=== PATIENT | female | born 1950 | race Caucasian/White ===

== ENCOUNTER → 2017-12-31 12:28 | Outpatient (CLI) | payer MEDICARE, SELFPAY ==
[2017-12-31 12:58] LABS: Creatinine,Urine Random 13 mg/dL (20-320)
[2017-12-31 13:40] LABS: Anion Gap 12.1 mEq/L (5-15); Blood Urea Nitrogen 13 mg/dL (7-18); Carbon Dioxide 31 mmol/L (21.0-32.0); Chloride 101 mmol/L (98-107); Creatinine,Serum 0.83 mg/dL (0.55-1.02); Estimated Glomerular Filt Rate 69 ml/min (>60); Potassium 4.1 mmoL/L (3.5-5.1); Sodium 140 mmol/L (136-145)
[2017-12-31 13:41] LABS: Albumin Level 4.1 gm/dL (3.4-5.0); Calcium 10.1 mg/dL (8.5-10.1); GFR (African American) 83 ML/MIN (>60); Glucose 99 mg/dL (74-106); Phosphorous 3.9 mg/dL (2.4-4.9)
[2018-01-01 18:41] LABS: Vitamin D 25 Hydroxy 26.7 ng/mL (30.0-100.0)
[2018-01-04 08:30] LABS: Osteocalcin 19.4 ng/mL (.); Tandem-R Ostase 23.6 ug/L (.)
[2018-01-05 10:57] LABS: N-Telopeptide Cross-linked 28.5 nmol BCE/L (6.2-19.0)
== END ==
PROVIDERS: Visit Provider Internal Medicine Nephrology
DX: M81.0 Age-related osteoporosis without current pathological fracture (principal)
CPT/HCPCS: 36415; 80069; 82523; 82570; 82652; 83937; 84080

== ENCOUNTER → 2018-01-31 12:41 | Outpatient (POV) | payer MEDICARE, SELFPAY | PROVIDERS: Visit Provider Internal Medicine Nephrology | DX: Z00.00 Encounter for general adult medical examination without abnormal findings (principal) ==

== ENCOUNTER → 2018-02-22 09:38 | Outpatient (CLI) | payer MEDICARE, SELFPAY ==
--- NOTE | 2018-02-22 09:43 | MM_ITS ---
MM Dig screening mamm BI w/CAD ORDERING PHYSICIAN : Danuta Dukes PATIENT AGE: 67 years GENDER: Female COMPARISON: August 2015, May INDICATION: ITS.REASON: SCREENING no hormones. No new complaints. Noncontributory family history TECHNIQUE: Standard CC and MLO images were obtained. R2 CAD reviewed. FINDINGS: Moderate density breast with no dominant, suspicious mass or suspicious calcifications. Similar parenchymal pattern to previous studies . No significant new areas of concern. Minor progression of 8 benign calcifications left breast. Insignificant. . IMPRESSION: . No significant new findings either breast. Stable mammogram. Bilateral follow-up recommended in one year BI-RADS Category: 2 Benign Finding(s) RECOMMENDED FOLLOW-UP: 1YR 1 YEAR FOLLOW-UP (A letter has been sent to the patient regarding results of the study.)
== END ==
PROVIDERS: PCP Internal Medicine Adolescent Medicine; Visit Provider Nurse Practitioner Family
DX: Z12.31 Encounter for screening mammogram for malignant neoplasm of breast (principal)
CPT/HCPCS: 77067

== ENCOUNTER → 2018-06-17 08:21 | Outpatient (CLI) | payer MEDICARE, SELFPAY ==
--- NOTE | 2018-06-17 08:30 | XR_ITS ---
XR DEXA axial skeleton HISTORY: ITS.REASON: OSTEOPOROSIS ORDERING PHYSICIAN: Romulo Sullivan PATIENT AGE: 67 years COMPARISON: [id number] FINDINGS: The BMD measured at the AP Spine L1-L4 is 1.002 g/cm squared with a T score of -1.8. This is considered Osteopenic according to the World Health Organization criteria. Fracture risk is Moderate. Treatment is advised. The mean hip density has a T score of -1.0. The lumbar spine density has increased by a percent and the hip density has decreased by 6% compared to 08/19/2016 IMPRESSION: Osteopenia with moderate fracture risk. Treatment is advised. Suggest follow up exam June 2020
[2018-06-17 09:49] LABS: Microscopic, Urine URINE MICROSCOPIC (MICROSCOPIC)
[2018-06-17 10:12] LABS: Basophils # 0.1 K/mm3 (0-0.2); Basophils % 0.5 % (0.1-2.0); Eosinophils # 0.2 K/mm3 (0.0-0.4); Eosinophils % 2.4 % (0.1-12.0); Hemoglobin 14.3 g/dL (12.2-16.2); Lymphocytes # 2.2 K/mm3 (0.7-4.5); Lymphocytes % 22.9 % (10-50); Mean Corpuscular HGB Conc 31.8 g/dL (31.8-35.4); Mean Corpuscular Hemoglobin 30.5 pg (27.0-31.2); Mean Corpuscular Volume 95.9 fl (81-99); Mean Platelet Volume 7.1 fl (7.4-10.4); Monocytes # 0.5 K/mm3 (0.1-1.0); Monocytes % 4.8 % (1.7-9.3); Neutrophils # 6.8 K/mm3 (1.8-7.8); Neutrophils % 69.4 % (37.0-80.0); Platelet Count 287 K/mm3 (142-424); Red Blood Count 4.69 M/mm3 (4.20-5.40); Red Cell Distribution Width 13.1 % (11.5-17.5); White Blood Count 9.8 K/mm3 (4.8-10.8)
[2018-06-17 10:13] LABS: Appearance,Urine CLOUDY (Clear); Blood, Urine TRACE-I (Negative); Color,Urine YELLOW (Yellow); Glucose,Urine (UA) Negative (Negative); Ketones,Urine TRACE (Negative); Leukocyte Esterase,Urine 1+ (Negative); Nitrate,Urine Negative (Negative); Protein,Urine Negative (Negative); Specific Gravity, Urine >= 1.030 (1.005-1.030); Urobilinogen,Urine 0.2 EU/dl (0.2)
[2018-06-17 10:16] LABS: Bilirubin,Urine Negative (Negative)
[2018-06-17 10:19] LABS: Creatinine,Urine Random 324 mg/dL (20-320); Total Protein,Urine Random 41.7 mg/dL (0.0-11.9)
[2018-06-17 10:22] LABS: Bacteria,Urine 1+ /lpf; Mucus,Urine Trace /lpf; RBC,Urine Occasional #/hpf (0-3); WBC,Urine 20-50 #/hpf (0-3)
[2018-06-17 10:38] LABS: Albumin Level 3.7 gm/dL (3.4-5.0); Anion Gap 12.2 mEq/L (5-15); Blood Urea Nitrogen 11 mg/dL (7-18); Calcium 9.4 mg/dL (8.5-10.1); Carbon Dioxide 30 mmol/L (21.0-32.0); Chloride 101 mmol/L (98-107); Creatinine,Serum 0.93 mg/dL (0.55-1.02); Estimated Glomerular Filt Rate 60 ml/min (>60); GFR (African American) 73 ML/MIN (>60); Glucose 137 mg/dL (74-106); Phosphorous 4.5 mg/dL (2.4-4.9); Potassium 4.2 mmoL/L (3.5-5.1); Sodium 139 mmol/L (136-145)
[2018-06-17 14:54] LABS: Alanine Aminotransferase 22 U/L (12-78); Albumin Level 3.8 gm/dL (3.4-5.0); Albumin/Globulin Ratio 1.2 (1.1-1.8); Alkaline Phosphatase 125 U/L (46-116); Anion Gap 18.3 mEq/L (5-15); Bilirubin,Total 0.2 mg/dL (0.2-1.0); Blood Urea Nitrogen 12 mg/dL (7-18); Calcium 9.2 mg/dL (8.5-10.1); Carbon Dioxide 27 mmol/L (21.0-32.0); Chloride 100 mmol/L (98-107); Chol/HDL Ratio 2.8 (1-3.5); Cholesterol 184 mg/dL (140-200); Creatinine,Serum 0.95 mg/dL (0.55-1.02); Estimated Glomerular Filt Rate 59 ml/min (>60); GFR (African American) 71 ML/MIN (>60); Globulin 3.1 gm/dl (1.3-3.2); Glucose 133 mg/dL (74-106); HDL Cholesterol 66 mg/dL (29-89); LDL Cholesterol 101 mg/dL (0-130); Sodium 141 mmol/L (136-145); Total Protein,Serum 6.9 gm/dL (6.4-8.2); Triglycerides 86 mg/dL (30-200); VLDL Cholesterol 17 mg/dL (0-40)
[2018-06-17 14:55] LABS: Aspartate Amino Transferase 16 U/L (15-37); Potassium 4.3 mmoL/L (3.5-5.1)
[2018-06-18 19:32] LABS: Parathyroid Hormone Intact 29 pg/mL (15-65)
[2018-06-21 08:08] LABS: Osteocalcin 27.1 ng/mL (.)
[2018-06-21 08:09] LABS: Tandem-R Ostase 24.8 ug/L (.)
[2018-06-21 16:13] LABS: N-Telopeptide Cross-linked 27.3 nmol BCE/L (6.2-19.0)
== END ==
PROVIDERS: PCP Nurse Practitioner Family; Visit Provider Internal Medicine Nephrology
DX: M81.0 Age-related osteoporosis without current pathological fracture (principal); E78.5 Hyperlipidemia, unspecified; I10 Essential (primary) hypertension; R82.90 Unspecified abnormal findings in urine
CPT/HCPCS: 36415; 77080; 80053; 80061; 80069; 81001; 82523; 82570; 82652; 83937; 83970; 84080; 84155; 85025; 87086

== ENCOUNTER → 2018-06-22 11:26 | Outpatient (CLI) | payer MEDICARE, SELFPAY ==
[2018-06-22 17:04] LABS: Hemoglobin A1C 5.6 % (0.0-7.0)
== END ==
PROVIDERS: Visit Provider Nurse Practitioner Family
DX: R73.09 Other abnormal glucose (principal)
CPT/HCPCS: 36415; 83036

== ENCOUNTER → 2018-07-18 12:19 | Outpatient (POV) | payer MEDICARE, SELFPAY | PROVIDERS: Visit Provider Internal Medicine Nephrology | DX: Z00.00 Encounter for general adult medical examination without abnormal findings (principal) ==

== ENCOUNTER → 2019-02-13 14:25 | Outpatient (CLI) | payer MEDICARE, SELFPAY ==
--- NOTE | 2019-02-13 14:29 | XR_ITS ---
PROCEDURE: XR HIP RT 2-3V W/PELVIS CLINICAL INDICATION: RT HIP PAIN COMPARISON: BONE3 BONE DENSITOMETRY(HIP:LT SPINE from 08/12/2015 BONE3 BONE DENSITOMETRY(HIP:LT SPINE from 08/19/2016 FINDINGS: No fracture or dislocation is evident. No significant degenerative change. No lytic or blastic change. Unremarkable soft tissues. IMPRESSION: No acute findings. Dictated by: Alessandro Fleming 02/13/2019 14:53 Electronically signed by Alessandro Fleming in [facility] 02/13/2019 14:53
== END ==
PROVIDERS: PCP Nurse Practitioner Family; Visit Provider Nurse Practitioner Family
DX: M25.551 Pain in right hip (principal)
CPT/HCPCS: 73502

== ENCOUNTER → 2019-07-03 09:10 | Outpatient (CLI) | payer MEDICARE, SELFPAY ==
--- NOTE | 2019-07-03 09:14 | XR_ITS ---
PROCEDURE: XR DEXA AXIAL SKELETON CLINICAL HISTORY: OSTEOPAROSIS COMPARISON: No exams were available for comparison FINDINGS: Using the right femoral neck bone mineral density is measured to be 0.71 grams/squared centimeter. T-score -1.2 place the patient in the osteopenic category. Using L1 through L4 vertebrae total bone mineral density is 0.81 grams/squared centimeter. T-score of -2.[address] the patient in the osteopenic category. IMPRESSION: Osteopenia. Dictated by: Adam Reagan 07/03/2019 13:36 Electronically signed by Adam Reagan in [facility] 07/03/2019 13:36
[2019-07-03 12:04] LABS: Albumin Level 3.8 g/dL (3.4-5.0); Anion Gap 11.4 mEq/L (5-15); Blood Urea Nitrogen 10 mg/dL (7-18); Calcium 9.2 mg/dL (8.5-10.1); Carbon Dioxide 32 mmol/L (21.0-32.0); Chloride 104 mmol/L (98-107); Creatinine,Serum 0.89 mg/dL (0.55-1.02); Estimated Glomerular Filt Rate 63 ml/min (>60); GFR (African American) 76 ML/MIN (>60); Glucose 90 mg/dL (74-106); Potassium 4.4 mmoL/L (3.5-5.1); Sodium 143 mmol/L (137-145)
[2019-07-07 10:33] LABS: N-Telopeptide Cross-linked 20.7 nmol BCE/L (6.2-19.0); Tandem-R Ostase 14.3 ug/L (.)
== END ==
PROVIDERS: PCP Nurse Practitioner Family; Visit Provider Internal Medicine Nephrology
DX: M81.0 Age-related osteoporosis without current pathological fracture (principal)
CPT/HCPCS: 36415; 77080; 80069; 82523; 82652; 83937; 84080

== ENCOUNTER → 2019-12-25 11:00 | Outpatient (CLI) | payer MEDICARE, SELFPAY ==
[2019-12-25 11:07] LABS: Microscopic, Urine URINE MICROSCOPIC (MICROSCOPIC)
[2019-12-25 11:30] LABS: Basophils # 0.1 K/mm3 (0-0.2); Basophils % 0.7 % (0.1-2.0); Eosinophils # 0.2 K/mm3 (0.0-0.4); Eosinophils % 2.1 % (0.1-12.0); Hematocrit 40.3 % (37.0-47.0); Hemoglobin 13.8 g/dL (12.2-16.2); Lymphocytes # 1.7 K/mm3 (0.7-4.5); Mean Corpuscular HGB Conc 34.2 g/dL (31.8-35.4); Mean Corpuscular Hemoglobin 32.2 pg (27.0-31.2); Mean Corpuscular Volume 94.2 fl (81-99); Mean Platelet Volume 6.9 fl (7.4-10.4); Monocytes # 0.5 K/mm3 (0.1-1.0); Monocytes % 5.8 % (1.7-9.3); Neutrophils # 6.6 K/mm3 (1.8-7.8); Neutrophils % 72.4 % (37.0-80.0); Platelet Count 273 K/mm3 (142-424); Red Blood Count 4.27 M/mm3 (4.20-5.40); Red Cell Distribution Width 12.7 % (11.5-17.5); White Blood Count 9.1 K/mm3 (4.8-10.8)
[2019-12-25 11:33] LABS: Appearance,Urine CLOUDY (Clear); Bilirubin,Urine Negative (Negative); Blood, Urine TRACE-I (Negative); Color,Urine YELLOW (Yellow); Glucose,Urine (UA) Negative (Negative); Ketones,Urine Negative (Negative); Leukocyte Esterase,Urine 2+ (Negative); Nitrate,Urine Negative (Negative); Protein,Urine TRACE (Negative); Specific Gravity, Urine 1.015 (1.005-1.030); Urobilinogen,Urine 0.2 EU/dl (0.2)
[2019-12-25 11:53] LABS: Alanine Aminotransferase 12 U/L (12-78); Albumin Level 4.4 g/dl (3.5-5.0); Albumin/Globulin Ratio 1.6 (1.1-1.8); Alkaline Phosphatase 111 U/L (38-126); Anion Gap 14.4 mEq/L (5-15); Aspartate Amino Transferase 22 U/L (14-36); Bilirubin,Total 0.4 mg/dl (0.2-1.3); Blood Urea Nitrogen 15 mg/dl (7-17); Calcium 10.3 mg/dl (8.4-10.2); Carbon Dioxide 33 mmol/L (22.0-30.0); Chloride 95 mmol/L (98-107); Chol/HDL Ratio 2.7 (1-3.5); Cholesterol 205 mg/dl (140-200); Estimated Glomerular Filt Rate 71 ml/min (>60); GFR (African American) 86 ML/MIN (>60); Globulin 2.7 g/dL (1.3-3.2); Glucose 104 mg/dl (74-100); HDL Cholesterol 76 mg/dl (40-60); Potassium 4.4 mmoL/L (3.5-5.1); Sodium 138 mmol/L (136-145); Total Protein,Serum 7.1 g/dl (6.3-8.2); Triglycerides 131 mg/dl (30-150); VLDL Cholesterol 26 mg/dL (0-40)
[2019-12-25 11:57] LABS: Bacteria,Urine 2+ /lpf; WBC,Urine 20-50 #/hpf (0-3)
[2019-12-25 11:58] LABS: Amorphous Sediment,Urine 2+ /lpf
[2019-12-25 12:03] LABS: Hemoglobin A1C 5.3 % (4.0-6.0)
[2019-12-25 12:04] LABS: Direct LDL Cholesterol 94.41 mg/dL (100-129)
[2019-12-25 12:09] LABS: 25-OH Vitamin D, Total 39.8 ng/mL (30-100)
[2019-12-25 12:10] LABS: Free Thyroxine Index 2.2 ug/dL (5.93-13.13); T4 (Thyroxine) 7.4 ug/dl (5.53-11.0); Triiodothryronine (T3) Uptake 30 % (23.5-40.5)
[2019-12-26 09:37] LABS: Vitamin B12 208 pg/mL (232-1245)
[2019-12-27 21:28] LABS: Methylmalonic Acid 892 nmol/L (0-378)
== END ==
PROVIDERS: Visit Provider Internal Medicine Adolescent Medicine
DX: R25.1 Tremor, unspecified (principal); G60.9 Hereditary and idiopathic neuropathy, unspecified; R30.0 Dysuria; M81.0 Age-related osteoporosis without current pathological fracture; Z00.00 Encounter for general adult medical examination without abnormal findings; E78.00 Pure hypercholesterolemia, unspecified; R73.09 Other abnormal glucose
CPT/HCPCS: 36415; 80053; 80061; 81001; 82131; 82306; 82607; 83036; 84436; 84443; 84479; 85025; 87086

== ENCOUNTER 2020-01-05 13:20 | Outpatient (CLI) | payer MEDICARE, SELFPAY ==
[2020-01-05 13:20] VITALS: BP 138/76; PULSE 68; RESP 20; TEMP 36.9; O2SAT 95
== END 2020-01-05 14:00 | disposition home or self-care (01) ==
LOC: INF 13:24
PROVIDERS: Visit Provider Internal Medicine Nephrology
DX: M85.89 Other specified disorders of bone density and structure, multiple sites (principal)
CPT/HCPCS: 96372; J0897

== ENCOUNTER → 2020-02-15 07:59 | Outpatient (CLI) | payer MEDICARE, SELFPAY ==
--- NOTE | 2020-02-15 08:00 | MR_ITS ---
PROCEDURE: MR HEAD/BRAIN WO CON CLINICAL INDICATION: NONINTRACTABLE EPISODIC HEADACHE Pt states hx of tremors x years and intermittent headaches. COMPARISON: CR CS5 CERVICAL SPINE 4 OR 5 VIEWS from 08/29/2014 TECHNIQUE: Routine multiplanar multi echo sequences are performed without gadolinium enhancement. FINDINGS: No midline shift, mass effect, intracranial hemorrhage, or hydrocephalus. No evidence of acute infarction. There are non specific T2 white matter hyperintensities in the periventricular and subcortical regions. These do not demonstrate restricted diffusion. The pituitary, optic chiasm, and craniocervical junction have an unremarkable appearance. There is mild prominence of the corpus callosum splenium region. The signal intensity however is unremarkable. Corpus callosum just anterior to this region is somewhat thinned. Artifact is present from the mastoid region on both sides. No paranasal sinus air-fluid levels evident. With the cerebellopontine angle, cerebellum, and brainstem are unremarkable. There is diffuse decreased signal intensity at the petrous area on both sides which could be due to either diffuse osteosclerosis or pneumatization. Head CT may provide further evaluation. IMPRESSION: 1. No acute intracranial findings. 2. Nonspecific T2 white matter hyperintensities 3. Diffuse decreased signal intensity in the mastoids and the petrous area. This may only be due to prominent pneumatization or possibly diffuse osteosclerosis. Head CT without contrast may provide further evaluation. 4. Nonspecific prominence of the splenium of the corpus callosum without signal alteration Dictated by: Gerardo Espinoza MD 02/19/2020 05:27 Gerardo Espinoza MD in [place] 02/19/2020 05:27
--- NOTE | 2020-02-15 08:00 | MR_ITS ---
PROCEDURE: MR LUMBAR SPINE WO CON CLINICAL INDICATION: IDIOPATHIC PERIPHERAL NEUROPATHY Pt. states she has no reflexes in left leg and she is unable to spread her toes in left leg. Pt denies injury or trauma. COMPARISON: CR KUB KUB (SINGLE VIEW) from 09/22/2013 TECHNIQUE: Standard multiplanar multiecho sequences are performed without contrast. 3-D MIP and myelographic images are also rendered and reviewed FINDINGS: The spinal cord ends at the L2 level. T12-L1: Unremarkable. L1-L2: There is chronic moderate to severe wedge compression fracture of L2 with loss of height centrally of greater than 50 percent and anteriorly of approximately 50 percent. There is mild retropulsion of the posterior inferior aspect of L2 by approximately 4 mm. Kyphosis is present at L1-L2 with minimal bulging of the disc slightly eccentric toward the right with mild right lateral recess narrowing. Mild bilateral foraminal narrowing noted. L2-L3: Bulging disc. Mild retropulsion of L2 of on L3 of 4 mm. Small annular fissure is noted centrally. There is mild facet and ligamentum hypertrophy with mild bilateral lateral recess narrowing and foraminal narrowing. L3-L4: Minimal bulging disc slightly eccentric toward the left with mild bilateral foraminal narrowing greater on the left. L4-5: Unremarkable. L5-S1: There is a small broad-based central left paracentral and foraminal disc protrusion versus asymmetric bulging disc with associated facet and ligamentum hypertrophy causing mild left lateral recess narrowing and moderate to severe left-sided foraminal narrowing. IMPRESSION: Multilevel lumbar spondylosis resulting in lateral recess and foraminal narrowing. Please see above for detailed description at each level No extruded herniated disc. No bony canal stenosis. Chronic wedge compression fracture of L2 with kyphosis. See above for details Dictated by: Gerardo Espinoza MD 02/19/2020 05:35 Gerardo Espinoza MD in [place] 02/19/2020 05:35
== END ==
PROVIDERS: PCP Nurse Practitioner Family; Visit Provider Nurse Practitioner Family
DX: R51.9 Headache, unspecified (principal); G60.9 Hereditary and idiopathic neuropathy, unspecified
CPT/HCPCS: 70551; 72148; 76376

== ENCOUNTER → 2020-03-13 09:28 | Outpatient (CLI) | payer MEDICARE, SELFPAY ==
--- NOTE | 2020-03-13 09:31 | MM_ITS ---
PROCEDURE: MM DIG SCREENING MAMM BI W/CAD Digital Breast Tomosynthesis Included CLINICAL INDICATION: SCREENING There is no personal or family history of breast cancer. COMPARISON: MG DMSB DIG MAMM-SCREEN CLAUDETTE from 05/19/2013 MG DMSB DIG MAMM-SCREEN CLAUDETTE from 09/04/2015 MG SCBI MM Dig screening mamm BI w/CAD from 02/22/2018 TECHNIQUE: Standard CC and MLO images and 3D Tomosynthesis was obtained. R2 CAD reviewed. FINDINGS: Diffuse somewhat heterogenic fibroglandular densities are seen in both breast. There are few scattered benign-appearing calcifications in each breast. There is no suspicious lesion in either breast and no suspicious microcalcifications. There are normal appearing nodes in both axilla. IMPRESSION: Moderate heterogenic breast density with no suspicious lesions seen BI-RAD Category: 2 Benign Finding(s) FOLLOW-UP: 1YR 1 Year Follow-up (A letter has been sent to the patient regarding results of the study.) Dictated by: Dr. Wilbert Saavedra MD 03/14/2020 20:05 Dr. Wilbert Saavedra MD in [place] 03/14/2020 20:05
== END ==
PROVIDERS: PCP Nurse Practitioner Family; Visit Provider Nurse Practitioner Family
DX: Z12.31 Encounter for screening mammogram for malignant neoplasm of breast (principal)
CPT/HCPCS: 77063; 77067

== ENCOUNTER → 2020-04-03 14:35 | Outpatient (CLI) | payer MEDICARE, SELFPAY ==
[2020-04-03 16:48] LABS: Coronavirus 19 IgG Antibody Negative (Negative); Coronavirus 19 IgM Antibody Negative (Negative)
== END ==
PROVIDERS: Visit Provider Internal Medicine Gastroenterology
DX: Z01.818 Encounter for other preprocedural examination (principal); Z12.11 Encounter for screening for malignant neoplasm of colon
CPT/HCPCS: 36415; 86328

== ENCOUNTER 2020-04-05 06:47 | Day surgery (SDC) | payer MEDICARE, SELFPAY ==
[2020-03-27 14:24] VITALS: BMI 31.5
[2020-04-05] VITALS (8 sets, daily range): BP systolic 113–154; BP diastolic 58–100; PULSE 80–119; RESP 18; TEMP 36.4–36.6; O2SAT 94–98
--- NOTE | 2020-04-05 08:05 | HMH.PROC ---
[facility] Procedure Note Procedure Note:: Colonoscopy Procedure Report: Colonoscopy with cold snare polypectomy Endoscopist: Betito Kim II, MD Referring physician: PRATIBHA Porter Date of Procedure: April 05, 2020 Equipment: Olympus 180 variable stiffness pediatric colonoscope Sedation: MAC sedation Indication: Mrs. Sanchez is a 69-year-old female who is here for follow-up screening/surveillance colonoscopy. Her father had colon cancer twice and was initially diagnosed with this at the age of 70. The patient has undergone surveillance every 5 years and her last colonoscopy 5 years ago was normal. She reports no abdominal pain, weight loss, change in her bowel habits or rectal bleeding. Her recent lab work showed normal hemoglobin 13.8 and hematocrit 40.3. She does have B12 deficiency (vitamin B12 level 208 pg/mL). Procedure: Prior to the procedure, a history and physical exam was performed, and patient's medications and allergies were reviewed. The risks, benefits and alternatives of the sedation and procedure were discussed with the patient. All questions were answered and informed consent was obtained. The patient was brought to the procedure room. Patient identification and proposed procedure were verified by the physician and the nurse. The patient was placed in a left lateral decubitus position and the scope was passed under direct vision. Throughout the procedure, the patient's blood pressure, pulse, and oxygen saturations were monitored continuously. The colonoscopy was accomplished without difficulty. The patient tolerated the procedure well. Findings: On digital rectal examination there was normal rectal tone. There were no external hemorrhoids. The colonoscope was introduced through the anal canal to the rectum and advanced to the cecum. The ileocecal valve and appendiceal orifice were identified. The scope was advanced a short distance into the ileum which appeared grossly normal. The scope was then withdrawn into the colon. There were 3 colon polyps (cecum x2 (4 and 5 mm) and transverse x1 (4 mm)) which were all removed via cold snare polypectomy. There were extensive scattered diverticuli throughout the descending and sigmoid colon (LEFT colon). The rectum itself was normal. Upon retroflexion within the rectum there were grade 1 internal hemorrhoids. The preparation was excellent throughout with [place] Preparation Score of 9. The cecal time was 12 minutes. Impression: 1. Colonic polyps x3 2. Left-sided diverticulosis 3. Grade 1 internal hemorrhoids Plan: I will follow up the polyp pathology and recommend repeat colonoscopy again in 5 years based upon the patient's family history and the present polyp histology. I would encourage fiber supplementation on a long-term daily maintenance basis.
--- NOTE | 2020-04-05 08:14 | HMH.ANESCL ---
[facility] Anesthesia Checklist - Structural Data Admitted From: Home Planned Operative Procedure/s: colonoscopy Consent for Planned Operative Procedure(s) Verified: Yes - Airway Assessment C-Spine Mobility Assessed: Yes TMJ Mobility Assessed: Yes Dentition: Good Dentition - Neurological Assessment Level of Consciousness: Awake, Alert, Appropriate - Anesthesia Plan Anesthesia Risk discussed: Yes Anesthesia Plan: Verified ASA Class: II Anesthesia Type: MAC [facility] History I have reviewed the patient's past medical history: Yes Medical History: Denies:: Cancer, Diabetes Mellitus Type 1, Diabetes Mellitus Type 2, Internal Pacemaker, MRSA, Seizures *Have you ever received a pneumonia vaccine?: Yes *Have you received a flu vaccine this season?: Yes Anesthesia experience/problems:: none Other Surgeries: No: Pacemaker Amputation: No Fractures: Yes - *Social History Last grade of school completed: Advanced degree Smoking Status: Never smoker Alcohol Intake: never Substance Use Type: denies use *Occupational Status:: retired Housing: house Household Members: none *Travel in the last 8 weeks: None Family Hx:: Cancer, Hypertension
== END 2020-04-05 08:55 | disposition home or self-care (01) ==
LOC: OUTP 06:49
PROVIDERS: PCP Internal Medicine Adolescent Medicine; Visit Provider Internal Medicine Gastroenterology
PROC: 0DJD8ZZ Inspection of Lower Intestinal Tract, Via Natural or Artificial Opening Endoscopic (ICD-10-PCS; CPT 45378; principal; 2020-04-05 08:00)
DX: Z12.11 Encounter for screening for malignant neoplasm of colon (principal); K64.0 First degree hemorrhoids; K63.5 Polyp of colon; K57.30 Diverticulosis of large intestine without perforation or abscess without bleeding; Z86.010 Personal history of colon polyps; E53.8 Deficiency of other specified B group vitamins; I10 Essential (primary) hypertension; F32.9 Major depressive disorder, single episode, unspecified; Z87.39 Personal history of other diseases of the musculoskeletal system and connective tissue; Z79.82 Long term (current) use of aspirin; Z79.899 Other long term (current) drug therapy
CPT/HCPCS: 45385; 88305

== ENCOUNTER 2020-07-09 13:31 | Outpatient (CLI) | payer MEDICARE, SELFPAY ==
[2020-07-09 13:47] VITALS: BP 111/68; PULSE 97; RESP 18; TEMP 36; O2SAT 98
== END 2020-07-09 13:47 | disposition home or self-care (01) ==
LOC: INF 13:32
PROVIDERS: Visit Provider Psychiatry & Neurology Neurology
DX: M81.0 Age-related osteoporosis without current pathological fracture (principal)
CPT/HCPCS: 96372; J0897

== ENCOUNTER → 2020-08-21 12:14 | Outpatient (CLI) | payer MEDICARE, SELFPAY ==
[2020-08-21 13:12] LABS: Albumin Level 4.4 g/dl (3.5-5.0); Anion Gap 14.6 mEq/L (5-15); Blood Urea Nitrogen 13 mg/dl (7-17); Calcium 9.6 mg/dl (8.4-10.2); Carbon Dioxide 28 mmol/L (22.0-30.0); Chloride 100 mmol/L (98-107); Estimated Glomerular Filt Rate 71 ml/min (>60); GFR (African American) 86 ML/MIN (>60); Glucose 60 mg/dl (74-100); Potassium 4.6 mmoL/L (3.5-5.1); Sodium 138 mmol/L (136-145)
[2020-08-24 09:15] LABS: C-Telopeptide Serum 74 pg/mL (.)
[2020-08-24 13:55] LABS: Tandem-R Ostase 10.2 ug/L (.)
== END ==
PROVIDERS: Visit Provider Internal Medicine Nephrology
DX: M81.0 Age-related osteoporosis without current pathological fracture (principal)
CPT/HCPCS: 36415; 80069; 82306; 82523; 84080

== ENCOUNTER → 2021-03-26 09:12 | Outpatient (CLI) | payer MEDICARE, SELFPAY ==
--- NOTE | 2021-03-26 09:17 | XR_ITS ---
PROCEDURE: XR DEXA AXIAL SKELETON CLINICAL HISTORY: OSTEOPOROSIS COMPARISON: CR DEXAAX XR DEXA axial skeleton from 06/17/2018 FINDINGS: The right hip BMD is 0.72 with a T-score of -1.1. The left hip BMD is 0.638 with a T-score of -1.9. The lumbar spine BMD is 0.826 with a T-score of -2.0. Previously the lowest density was in the lumbar spine with T-score -1.8 IMPRESSION: This patient is considered osteopenic according to the World Health Organization criteria. Bone density is between 10 and 25 percent below young normal. Fracture risk is moderate. Treatment is advised. Based on these results a follow-up exam is recommended in 2 year. Dictated by: Gerardo Espinoza MD 03/26/2021 15:33 Gerardo Espinoza MD in [place] 03/26/2021 15:33
== END ==
PROVIDERS: PCP Nurse Practitioner Family; Visit Provider Internal Medicine Nephrology
DX: M81.0 Age-related osteoporosis without current pathological fracture (principal)
CPT/HCPCS: 77080

== ENCOUNTER → 2021-04-16 12:00 | Outpatient (CLI) | payer MEDICARE, SELFPAY ==
[2021-04-16 12:43] LABS: Albumin Level 4.4 g/dl (3.5-5.0); Chloride 95 mmol/L (98-107); Potassium 4.5 mmoL/L (3.5-5.1); Sodium 135 mmol/L (136-145)
[2021-04-16 12:46] LABS: Anion Gap 13.5 mEq/L (5-15); Blood Urea Nitrogen 16 mg/dl (7-17); Carbon Dioxide 31 mmol/L (22.0-30.0); Estimated Glomerular Filt Rate 62 ml/min (>60); GFR (African American) 75 ML/MIN (>60); Phosphorous 4.8 mg/dl (2.5-4.5)
[2021-04-16 12:47] LABS: Calcium 9.9 mg/dl (8.4-10.2); Glucose 100 mg/dl (74-100)
[2021-04-16 13:43] LABS: 25-OH Vitamin D, Total 56.7 ng/mL (30-100)
[2021-04-20 06:41] LABS: Tandem-R Ostase 19.1 ug/L (.)
[2021-04-20 15:31] LABS: C-Telopeptide Serum 473 pg/mL (.)
== END ==
PROVIDERS: Visit Provider Internal Medicine Nephrology
DX: M81.0 Age-related osteoporosis without current pathological fracture (principal)
CPT/HCPCS: 36415; 80069; 82306; 82523; 84080

== ENCOUNTER → 2021-04-21 13:01 | Outpatient (POV) | payer MEDICARE, SELFPAY | PROVIDERS: Visit Provider Internal Medicine Nephrology | DX: Z00.00 Encounter for general adult medical examination without abnormal findings (principal) ==

== ENCOUNTER 2021-05-26 11:30 | Outpatient (CLI) | payer MEDICARE, SELFPAY ==
[2021-05-26 11:50] VITALS: BP 127/73; PULSE 90; RESP 18; TEMP 36.4; O2SAT 99
== END 2021-05-26 11:50 | disposition home or self-care (01) ==
LOC: INF 11:31
PROVIDERS: PCP Internal Medicine Adolescent Medicine; Visit Provider Internal Medicine Nephrology
DX: M81.0 Age-related osteoporosis without current pathological fracture (principal)
CPT/HCPCS: 96372; J0897

== ENCOUNTER → 2022-04-06 11:32 | Outpatient (POV) | payer MEDICARE, SELFPAY | PROVIDERS: Visit Provider Internal Medicine Nephrology | DX: Z00.00 Encounter for general adult medical examination without abnormal findings (principal) ==

== ENCOUNTER → 2022-04-06 12:39 | Outpatient (CLI) | payer MEDICARE, SELFPAY ==
[2022-04-06 13:55] LABS: Albumin Level 4.5 g/dl (3.5-5.0); Anion Gap 15.9 mEq/L (5-15); Blood Urea Nitrogen 14 mg/dl (7-17); Calcium 10.3 mg/dl (8.4-10.2); Carbon Dioxide 31 mmol/L (22.0-30.0); Chloride 95 mmol/L (98-107); Estimated Glomerular Filt Rate 55 ml/min (>60); GFR (African American) 66 ML/MIN (>60); Glucose 102 mg/dl (74-100); Phosphorous 4.2 mg/dl (2.5-4.5); Potassium 4.9 mmoL/L (3.5-5.1); Sodium 137 mmol/L (136-145)
[2022-04-06 14:10] LABS: 25-OH Vitamin D, Total 59.6 ng/mL (30-100)
[2022-04-10 10:03] LABS: Tandem-R Ostase 20.5 ug/L (.)
[2022-04-12 15:08] LABS: C-Telopeptide Serum 400 pg/mL (.)
== END ==
PROVIDERS: PCP Internal Medicine Adolescent Medicine; Visit Provider Internal Medicine Nephrology
DX: M81.0 Age-related osteoporosis without current pathological fracture (principal); I10 Essential (primary) hypertension; N18.2 Chronic kidney disease, stage 2 (mild)
CPT/HCPCS: 36415; 80069; 82306; 82523; 84080

== ENCOUNTER → 2022-05-28 10:15 | Outpatient (CLI) | payer MEDICARE, SELFPAY ==
--- NOTE | 2022-05-28 10:28 | MM_ITS ---
PROCEDURE INFORMATION: Exam: MG Bilateral Screening 3D Mammography Exam date and time: 05/28/2022 10:19 AM Age: 71 years old Clinical indication: Screening examination TECHNIQUE: Imaging protocol: Bilateral Screening tomosynthesis and 2D mammography including computer-aided detection (CAD) when performed. COMPARISON: 1. MG MM DIG SCREENING MAMM BI W/CAD 03/13/2020 9:36 AM 2. MG SCBI MM Dig screening mamm BI w/CAD 02/22/2018 10:01 AM FINDINGS: MAMMOGRAPHY: Breast composition: There are scattered areas of fibroglandular density. Mass: Questionable 0.4 cm mass in the middle third of the left upper outer quadrant better seen in the MLO projection Architectural distortion: None. Calcifications: No suspicious calcifications. Asymmetric density: None. Skin thickening: None. Axillary adenopathy: None. IMPRESSION: Patient to be recalled for spot compression views of the left breast in the CC and MLO projections, a full 90 degree lateral view, and left breast ultrasound for further evaluation of a left breast mass. ASSESSMENT: BI-RADS Category 0: Incomplete- Need Additional Imaging Evaluation and/or Prior Mammograms for Comparison
[2022-05-28 11:42] LABS: Basophils # 0.1 K/mm3 (0-0.2); Basophils % 1.2 % (0.1-2.0); Eosinophils # 0.3 K/mm3 (0.0-0.4); Eosinophils % 2.9 % (0.1-12.0); Hematocrit 41.5 % (37.0-47.0); Hemoglobin 12.6 g/dL (12.2-16.2); Lymphocytes # 2.2 K/mm3 (0.7-4.5); Lymphocytes % 20.5 % (10-50); Mean Corpuscular HGB Conc 30.4 g/dL (31.8-35.4); Mean Corpuscular Volume 92.1 fl (81-99); Mean Platelet Volume 7.3 fl (7.4-10.4); Monocytes # 0.6 K/mm3 (0.1-1.0); Neutrophils # 7.3 K/mm3 (1.8-7.8); Neutrophils % 69.3 % (37.0-80.0); Platelet Count 342 K/mm3 (142-424); Red Blood Count 4.51 M/mm3 (4.20-5.40); Red Cell Distribution Width 14.1 % (11.5-17.5); White Blood Count 10.6 K/mm3 (4.8-10.8)
[2022-05-28 12:23] LABS: Alanine Aminotransferase 16 U/L (12-78); Albumin Level 4.3 g/dl (3.5-5.0); Albumin/Globulin Ratio 1.7 (1.1-1.8); Alkaline Phosphatase 114 U/L (38-126); Anion Gap 12.4 mEq/L (5-15); Aspartate Amino Transferase 22 U/L (14-36); Bilirubin,Total 0.5 mg/dl (0.2-1.3); Blood Urea Nitrogen 17 mg/dl (7-17); Calcium 9.4 mg/dl (8.4-10.2); Carbon Dioxide 31 mmol/L (22.0-30.0); Chloride 99 mmol/L (98-107); Chol/HDL Ratio 2.7 (1-3.5); Cholesterol 178 mg/dl (140-200); Estimated Glomerular Filt Rate 62 ml/min (>60); GFR (African American) 75 ML/MIN (>60); Globulin 2.5 g/dL (1.3-3.2); Glucose 98 mg/dl (74-100); HDL Cholesterol 66 mg/dl (40-60); Potassium 4.4 mmoL/L (3.5-5.1); Sodium 138 mmol/L (136-145); Total Protein,Serum 6.8 g/dl (6.3-8.2); Triglycerides 100 mg/dl (30-150); VLDL Cholesterol 20 mg/dL (0-40)
[2022-05-28 12:34] LABS: Direct LDL Cholesterol 74.33 mg/dL (100-129)
[2022-05-28 13:11] LABS: Vitamin B12 406 pg/mL (239-931)
== END ==
PROVIDERS: PCP Internal Medicine Adolescent Medicine; Visit Provider Nurse Practitioner Family
DX: Z12.31 Encounter for screening mammogram for malignant neoplasm of breast (principal); E78.5 Hyperlipidemia, unspecified
CPT/HCPCS: 36415; 77063; 77067; 80053; 80061; 82607; 85025

== ENCOUNTER → 2022-06-24 13:54 | Outpatient (CLI) | payer MEDICARE, SELFPAY ==
--- NOTE | 2022-06-24 13:58 | MM_ITS ---
PROCEDURE INFORMATION: Exam: US Left Breast, Complete MG Left Diagnostic Breast Tomosynthesis Exam date and time: 06/24/2022 1:58 PM Age: 71 years old Clinical indication: Recall the basis of screening mammogram 05/28/2022 further evaluation of questionable 0.4 cm mass in the middle 3rd of the left upper outer quadrant better seen in the MLO projection. TECHNIQUE: Imaging protocol: Complete ultrasound of all four quadrants of the Left breast and the retroareolar regions, including ultrasound of the axilla when performed. Left Diagnostic tomosynthesis and 2D mammography including computer-aided detection (CAD) when performed. Unilateral or bilateral exam. COMPARISON: 1. MG MM DIG SCREENING MAMM BI W/CAD 05/28/2022 10:19 AM 2. MG MM DIG SCREENING MAMM BI W/CAD 03/13/2020 9:36 AM 3. MG SCBI MM Dig screening mamm BI w/CAD 02/22/2018 10:01 AM 4. MG DMSB DIG MAMM-SCREEN CLAUDETTE 09/04/2015 4:59 PM FINDINGS: MAMMOGRAPHY: Spot compression shows less prominent 0.4 cm mass/asymmetry in the upper breast, middle 3rd in the MLO projection, similar appearance to 02/22/2018 - with no persisting of finding in the craniocaudad projection. ULTRASOUND: Left sonography, all 4 quadrants, retroareolar and axilla. Oval avascular hypoechoic masses, probably complicated cysts, at 2 o'clock 6 cm from the nipple, oval avascular hypoechoic mass measuring 0.4 x 0.5 x 0.3 cm; in the upper outer quadrant 6 cm from the nipple, measuring 0.2 by 0.2 x 0.2 cm; at 3 o'clock 6 cm from the nipple, measuring 0.2 x 0.2 cm. Two probable complicated cysts with avascular thin septation in the upper outer quadrant 3 cm from the nipple, measuring 0.3 x 0.2 x 0.3 cm and 0.5 x 0.2 cm. IMPRESSION: Probably benign mammographic finding in the upper breast with several probably benign cystic changes in the upper outer quadrant, suggest six-month follow-up left diagnostic mammogram and targeted left sonography, unless otherwise clinically indicated. ASSESSMENT: BI-RADS Category 3: Probably benign
== END ==
PROVIDERS: PCP Internal Medicine Adolescent Medicine; Visit Provider Nurse Practitioner Family
DX: R92.8 Other abnormal and inconclusive findings on diagnostic imaging of breast (principal)
CPT/HCPCS: 76641; 77061; 77065; G0279

== ENCOUNTER 2022-07-27 08:17 | Outpatient (CLI) | payer MEDICARE, SELFPAY ==
[2022-07-27 08:41] VITALS: BP 147/85; PULSE 92; RESP 18; TEMP 36.3; O2SAT 98
== END 2022-07-27 09:07 | disposition home or self-care (01) ==
LOC: INF 08:20
PROVIDERS: PCP Internal Medicine Adolescent Medicine; Visit Provider Internal Medicine Nephrology
DX: M81.0 Age-related osteoporosis without current pathological fracture (principal)
CPT/HCPCS: 96372; J0897

== ENCOUNTER → 2022-08-12 14:05 | Outpatient (CLI) | payer MEDICARE, SELFPAY ==
[2022-08-12 16:09] LABS: Anion Gap 13.4 mEq/L (5-15); Blood Urea Nitrogen 14 mg/dl (7-17); Carbon Dioxide 30 mmol/L (22.0-30.0); Chloride 96 mmol/L (98-107); Estimated Glomerular Filt Rate 71 ml/min (>60); GFR (African American) 86 ML/MIN (>60); Glucose 86 mg/dl (74-100); Potassium 4.4 mmoL/L (3.5-5.1); Sodium 135 mmol/L (136-145)
== END ==
PROVIDERS: PCP Internal Medicine Adolescent Medicine; Visit Provider Internal Medicine Nephrology
DX: M81.0 Age-related osteoporosis without current pathological fracture (principal)
CPT/HCPCS: 36415; 80048

== ENCOUNTER 2023-01-05 13:04 | Observation (INO) | payer MEDICARE, SELFPAY ==
[2023-01-05] VITALS (7 sets, daily range): BP systolic 106–143; BP diastolic 67–84; PULSE 103–130; RESP 18–24; TEMP 36.6–36.8; O2SAT 90–98; BMI 31.4; BMI 31.7
--- NOTE | 2023-01-05 13:19 | ECG_ITS ---
APPROVED REPORT Exam: Resting ECG HR:115 bpm ECG Measurements Heart Rate 115 AXES QRSd 93 QRS 52 QT 326 T 55 QTc 394 Conclusion ATRIAL FIBRILLATION WITH RAPID VENTRICULAR RESPONSE NONSPECIFIC ST & T-WAVE ABNORMALITY ABNORMAL RHYTHM ECG UNCONFIRMED REPORT Electronically signed by : Guillaume Mauro MD 01/05/2023 19:40:34
--- NOTE | 2023-01-05 14:06 | CT_ITS ---
PROCEDURE INFORMATION: Exam: CTA Chest With Contrast Exam date and time: 01/05/2023 2:41 PM Age: 72 years old Clinical indication: Dyspnea; Additional info: Sudden dyspnea TECHNIQUE: Imaging protocol: Computed tomographic angiography of the chest with contrast. Exam focused on the arteries. 3D rendering (Not supervised by radiologist): MIP and/or 3D reconstructed images were created by the technologist. Radiation optimization: All CT scans at this facility use at least one of these dose optimization techniques: automated exposure control; mA and/or kV adjustment per patient size (includes targeted exams where dose is matched to clinical indication); or iterative reconstruction. Contrast material: ISOVUE; Contrast volume: 70 ml; Contrast route: INTRAVENOUS (IV); REPORTING DATA: Count of CT and Cardiac NM exams in prior 12 months: This patient has received 0 known CTs and 0 known cardiac nuclear medicine studies in the 12 months prior to the current study. COMPARISON: No relevant prior studies available. FINDINGS: Limitations: Breathing is noted on these images limiting the interpretation. Pulmonary arteries: The pulmonary artery density is 382 units. The adjacent aorta measures 285 units indicating late initiation of the scan following contrast administration. No emboli are seen to the level of the lobar pulmonary arterial vessels. There is motion artifact limiting detail throughout the chest. One or more segmental/subsegmental emboli cannot be excluded. Aorta: See Pulmonary arteries finding. Thyroid: The thyroid appears normal. Lungs: There is a calcified 5 mm granuloma of the lateral right lower lobe on axial image 77.Patchy density mosaic lung pattern suggests small airways disease. Pleural spaces: Unremarkable. No pneumothorax. No pleural effusion. Heart: The RV/LV ratio is 1.1 which is suspicious for right heart strain. Lymph nodes: There are multiple small calcified lymph nodes in the mediastinum, consistent with remote granulomatous organism exposure. Diaphragm: A small hiatal hernia is present. Spleen: The spleen demonstrates punctate calcifications, consistent with remote granulomatous organism exposure. The spleen is otherwise normal. Adrenal glands: There is thickening of the left adrenal gland measuring 13 mm on image 107. Density measurements are not useful on postcontrast images. Bones/joints: There is severe degenerative disease of the right shoulder. Soft tissues: Unremarkable. IMPRESSION: 1. 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 2. There is a calcified 5 mm granuloma of the lateral right lower lobe on axial image 77.Patchy density mosaic lung pattern suggests small airways disease. 3. There is thickening of the left adrenal gland measuring 13 mm on image 107. Density measurements are not useful on postcontrast images. 4. The RV/LV ratio is 1.1 which is suspicious for right heart strain. 5. The pulmonary artery density is 382 units. The adjacent aorta measures 285 units indicating late initiation of the scan following contrast administration. 6. No emboli are seen to the level of the lobar pulmonary arterial vessels. There is motion artifact limiting detail throughout the chest. One or more segmental/subsegmental emboli cannot be excluded.
--- NOTE | 2023-01-05 14:09 | HMH.EDGENADL ---
Discharge Plan Disposition Patient Disposition: Admitted Prescriptions Prescriptions: No Action sumatriptan succinate 100 MG tablet 100 mg PO DAILYP PRN (Reason: Headache) bisoprolol-hydrochlorothiazide 1 EACH tablet 1 each PO DAILY aspirin 81 MG tablet,delayed release (DR/EC) 81 mg PO DAILY lansoprazole 15 MG capsule,delayed release(DR/EC) 15 mg PO DAILY cholecalciferol (vitamin D3) 1,000 UNIT capsule 4,000 unit PO DAILY magnesium 200 MG tablet 400 mg PO DAILY duloxetine 30 MG capsule,delayed release(DR/EC) 60 mg PO BID coenzyme Q10 200 MG capsule 200 mg PO DAILY bupropion HCl (smoking deter) 150 MG tablet extended release 12 hr 150 mg PO DAILY melatonin 3 MG capsule 6 mg PO DAILY Referrals Follow up/Referrals: Danuta Dukes APRN [Primary Care Provider] - See instructions Clinical Impressions Clinical Impression: Atrial fibrillation with RVR Discharge ED Provider: Chris Moralez General Adult HPI General Chief complaint: Shortness of Breath/Dyspnea Stated complaint: SOA Time Seen by Provider: 01/05/23 13:57 Mode of Arrival: Family Vehicle Source of Information: Patient Limitations: No Limitations Description of Symptoms (Recalled from ER Triage Doc. by RN): Pt c/o SOA with exertion for 2 days. Denies any palpitation, chest pain or pressure, or n/v/d. States she attempted to see her PCP although they adivsed her to present to the ER. She also reports dry cough or sore throat. She has been eating and drinking well although thinks maybe I might be a little dehydrated . Denies fever or chills. Denies any sinus issues. No hx of CHF or cardiac stents. History of Present Illness HPI narrative: 72-year-old female previously healthy other than a history of hypertension presents today with sudden dyspnea. States this happened yesterday in the afternoon all of a sudden and she has had exertional dyspnea since that time. She denies any significant chest pain. She denies any lower extremity swelling any hemoptysis any prolonged immobilizations recently any history of DVT or PE. She denies any cough fevers or chills. She states prior to yesterday she has been intermittently having some palpitations but she is not sure exactly when that began. She does not carry a diagnosis of atrial fibrillation. Related Data Home Medications Medication Instructions Recorded Confirmed aspirin 81 mg tablet,delayed 81 mg PO DAILY heart healthy 03/27/20 07/27/22 release bisoprolol 5 1 each PO DAILY bp 03/27/20 07/27/22 mg-hydrochlorothiazide 6.25 mg tablet bupropion HCl (smoking deter) 150 150 mg PO DAILY Depression 03/27/20 07/27/22 mg tablet,12 hr sustained-release(smoking deterrent) cholecalciferol (vitamin D3) 25 4,000 unit PO DAILY Supplement 03/27/20 07/27/22 mcg (1,000 unit) capsule coenzyme Q10 200 mg capsule 200 mg PO DAILY Supplement 03/27/20 07/27/22 duloxetine 30 mg capsule,delayed 60 mg PO BID Depression 03/27/20 07/27/22 release lansoprazole 15 mg capsule,delayed 15 mg PO DAILY GERD 03/27/20 07/27/22 release magnesium 200 mg tablet 400 mg PO DAILY Supplement 03/27/20 07/27/22 melatonin 3 mg capsule 6 mg PO DAILY sleep 03/27/20 07/27/22 sumatriptan succinate 100 mg tablet 100 mg PO DAILYP PRN Headache 03/27/20 07/27/22 Allergies Allergy/AdvReac Type Severity Reaction Status Date / Time No Known Allergies Allergy Verified 03/27/20 13:56 [facility] Disclaimer: The information contained in this section may have been updated after the patient was seen, as this information can be updated by other users. Medical History (Updated 01/05/23 @ 14:12 by Chris Moralez MD) Anxiety and depression GERD (gastroesophageal reflux disease) HTN (hypertension) Knee fracture Migraines Surgical History (Updated 07/27/22 @ 08:58 by Mic Montejo RN) H/O esophagogastroduodenoscopy History of colonoscopy History of repair of ro
[2023-01-05 14:21] LABS: Alanine Aminotransferase 29 U/L (12-78); Albumin/Globulin Ratio 1.5 (1.1-1.8); Alkaline Phosphatase 95 U/L (38-126); Anion Gap 15.9 mEq/L (5-15); Aspartate Amino Transferase 33 U/L (14-36); Bilirubin,Total 0.3 mg/dl (0.2-1.3); Blood Urea Nitrogen 12 mg/dl (7-17); Calcium 8.8 mg/dl (8.4-10.2); Carbon Dioxide 26 mmol/L (22.0-30.0); Chloride 94 mmol/L (98-107); Creatinine Clearance Estimated 66 mL/min (50-200); Estimated Glomerular Filt Rate 55 ml/min (>60); GFR (African American) 66 ML/MIN (>60); Globulin 2.7 g/dL (1.3-3.2); Glucose 117 mg/dl (74-100); Magnesium 1.9 mg/dl (1.6-2.3); Potassium 3.9 mmoL/L (3.5-5.1); Sodium 132 mmol/L (136-145); Total Protein,Serum 6.7 g/dl (6.3-8.2)
--- NOTE | 2023-01-05 14:30 | PC.NURSE ---
Dr Moralez s/w Dr. Mauro, agrees to admit
--- NOTE | 2023-01-05 14:31 | PC.NURSE ---
called Dr Mauro for ER Doctor wanting to speak with him about this pt
[2023-01-05 14:34] LABS: NT Pro Brain Natriuretic Pep. 5820 pg/mL (0-125)
[2023-01-05 14:35] LABS: Basophils # 0.1 K/mm3 (0-0.2); Basophils % 0.5 % (0.1-2.0); Eosinophils # 0.2 K/mm3 (0.0-0.4); Eosinophils % 2.2 % (0.1-12.0); Hemoglobin 11.9 g/dL (12.2-16.2); Lymphocytes % 19.2 % (10-50); Mean Corpuscular HGB Conc 33.2 g/dL (31.8-35.4); Mean Corpuscular Hemoglobin 29.2 pg (27.0-31.2); Mean Corpuscular Volume 88.1 fl (81-99); Mean Platelet Volume 7.7 fl (7.4-10.4); Monocytes # 0.5 K/mm3 (0.1-1.0); Monocytes % 5.1 % (1.7-9.3); Neutrophils # 7.7 K/mm3 (1.8-7.8); Platelet Count 357 K/mm3 (142-424); Red Blood Count 4.09 M/mm3 (4.20-5.40); Red Cell Distribution Width 13.6 % (11.5-17.5); White Blood Count 10.5 K/mm3 (4.8-10.8)
[2023-01-05 14:37] LABS: Troponin I < 0.01 ng/ml (0.00-0.034)
--- NOTE | 2023-01-05 14:40 | PC.NURSE ---
pt to ct via wheelchair
--- NOTE | 2023-01-05 14:51 | PC.NURSE ---
Called case management, s/w Dasia, for admission for Af. fib w rvr. No cardizem gtt at this time.
--- NOTE | 2023-01-05 15:15 | HMH.PHAINT1 ---
Pharmacy Intervention Comments: MEDICATION RECONCILIATION COMPLETED ON PATIENT USING EXTERNAL FILL HISTORY FROM PHARMACY. -MARY BETH RODGERS, [place]
[2023-01-05 17:34] LABS: Troponin I < 0.01 ng/ml (0.00-0.034)
--- NOTE | 2023-01-05 19:51 | EXP.HP ---
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 Her coworker became alarmed by her symptoms today and encouraged her to call our office and we encouraged her to go to the emergency department. In the ER she was found to have atrial fibrillation with rapid ventricular response. Consideration was given for cardioversion but given the uncertain length of time of her dyspnea it was decided to admit, begin rate control and administer Lovenox and regroup in regards to decision about cardioversion. [facility] Disclaimer: The information contained in this section may have been updated after the patient was seen, as this information can be updated by other users. Medical History (Updated 01/05/23 @ 16:56 by So Amin RN) Anxiety and depression Diverticulosis GERD (gastroesophageal reflux disease) HTN (hypertension) Knee fracture Migraines Osteoarthritis Surgical History H/O esophagogastroduodenoscopy History of colonoscopy History of repair of rotator cuff Family History Family history of cancer Social History (Updated 01/05/23 @ 16:56 by So Amin RN) Smoking Status: Never smoker second hand exposure: No alcohol intake: never substance use type: denies use current occupational status: retired Travel in the last 8 weeks: None household members: spouse housing: house current occupational exposures/hazards: No caffeine: Yes Review of Systems Review of Systems Review of systems:: pertinent systems reviewed and negative unless documented below Meds Home Medications and Allergies Home Medications Medication Instructions Recorded Confirmed Type aspirin 81 mg tablet,delayed 81 mg PO DAILY Heart Health 03/27/20 01/05/23 History release sumatriptan succinate 100 mg tablet 100 mg PO NEEDED PRN Migraine 03/27/20 01/05/23 History Headache bisoprolol 5 1 tab PO DAILY High Blood Pressure 01/05/23 01/05/23 History mg-hydrochlorothiazide 6.25 mg tablet bupropion HCl 150 mg 24 hr tablet, 150 mg PO DAILY Mood 01/05/23 01/05/23 History extended release bupropion HCl 150 mg 24 hr tablet, 150 mg PO DAILY . 01/05/23 01/05/23 History extended release (Wellbutrin XL) duloxetine 60 mg capsule,delayed 60 mg PO BID Mood 01/05/23 01/05/23 History release New Prescriptions to Start Prescriptions: Allergies Allergy/AdvReac Type Severity Reaction Status Date / Time No Known Allergies Allergy Verified 03/27/20 13:56 Exam Data for Last 24 hours Vital signs and Labs for Last 24 Hours: Temp Pulse Resp BP Pulse Ox O2 Del Method 98.1 F 130 H 18 133/83 90 L Room Air 01/05/23 15:52 01/05/23 16:00 01/05/23 15:52 01/05/23 15:52 01/05/23 15:52 01/05/23 17:00 Laboratory Results - last 24 hr 01/05/23 13:26: WBC 10.5, RBC 4.09 L, Hgb 11.9 L, Hct 36.0 L, MCV 88.1, MCH 29.2, MCHC 33.2, RDW 13.6, Plt Count 357, MPV 7.7, Neut % (Auto) 73.0, Lymph % (Auto) 19.2, [place] % (Auto) 5.1, Eos % (Auto) 2.2, Baso % (Auto) 0.5, Neut # (Auto) 7.7, Lymph # (Auto) 2.0, [place] # (Auto) 0.5, Eos # (Auto) 0.2, Baso # (Auto) 0.1, Sodium 132 L, Potassium 3.9, Chloride 94 L, Carbon Dioxide 26, Anion Gap 15.9 H, BUN 12, Creatinine 1.00, Estimated Creat Clear 66, Estimated GFR 55 L, Est GFR ( Amer) 66, Glucose 117 H, Calcium 8.8, Magnesium 1.9, Total Bilirubin 0.3, AST 33, ALT 29, Alkaline Phosphatase 95, Troponin I < 0.01, NT-Pro-B Natriuret Pep 5820 H, Total Protein 6.7, Albumin 4.0, Globulin 2.7, Albumin/Globulin Ratio 1.5, TSH 1.80 01/05/23 17:05: Magnesium 2.0, Troponin I < 0.01 I & O
[2023-01-05 20:50] LABS: Troponin I < 0.01 ng/ml (0.00-0.034)
--- NOTE | 2023-01-05 21:52 | PC.NURSE ---
yelena night watch and spoke with Divina - vivi prior lovenox SQ was ordered for 0245/1445 01/06 (likely r/t admission timing, etc), I wanted to prevent having to admin a shot considering the time and she has no other nicole meds for that time -- VTE nicole now correlates with AM and PM med pass for patient convenience.
[2023-01-06] VITALS (16 sets, daily range): BP systolic 108–146; BP diastolic 56–104; PULSE 75–130; RESP 16–20; TEMP 36.6–37.1; O2SAT 90–98; BMI 31.1
--- NOTE | 2023-01-06 07:00 | CA_ITS ---
APPROVED REPORT EXAM: Comprehensive 2D, Doppler, and color-flow Echocardiogram Concrete Puddler: Uyen Arteaga CRT Ht: 5 ft 3 in Wt: 179lbs BSA: 1.84 BP: 106/71 mmHg Indications: Atrial Fibrillation, Palpitations, Hypertension/HDD 2D Dimensions LVOT 1.89 cm (M/F) 1.5-2.5 M-Mode Dimensions RVDd 2.73 cm (0.9-2.6) LA Diam 5.38 cm (1.9-4.0) LVDd 3.95 cm (3.5-5.7) Ao Diam 3.44 cm (2.0-3.7) IVSd 2.44 cm (0.6-1.1) PWd 0.88 cm (0.6-1.1) EDV (Teich) 67.90 mL TAPSE 1.72 (<1.7) Aortic Valve AO Peak GR. 6.00 mmHg Pulmonary Valve PV Peak Velocity 142.00 (50-150 cm/s) Tricuspid Valve TR P. Velocity 295.00 cm/s RVSP 42.00 mmHg Left Ventricle The left ventricle is normal size. The left ventricular systolic function is normal. The left ventricular ejection fraction is within the normal range. There is proximal septal thickening. There is normal LV segmental wall motion. Full diastolic assessment is not performed. LVEF is 55-60%. Right Ventricle The right ventricle is normal size. The right ventricular systolic function is normal. Atria Left atrium is severely dilated. The right atrium size is moderately dilated. There is no Doppler evidence of interatrial shunt. Aortic Valve The aortic valve is mildly thickened. There is no aortic valvular stenosis. No aortic regurgitation is present. Mitral Valve The mitral valve is normal in structure. No evidence of mitral valve stenosis. There is mild to moderate mitral regurgitation. The mitral valve leaflet mobility appears normal. There is no evidence of mitral valve prolapse. Tricuspid Valve The tricuspid valve leaflets are thin and pliable. Mild tricuspid regurgitation. RVSP is 45-50 mmHg. Pulmonic Valve The pulmonary valve is normal in structure. Trace pulmonic regurgitation. Great Vessels The aortic root is normal in size. The ascending aorta is normal in size. The IVC is normal in size, but collapses < 50% with respirophasic variation. RA pressure is estimated at 8 mmHg. Pericardium There is no pericardial effusion. Other Information Study Quality: Fair Conclusion Normal biventricular systolic function. Mild to moderate MR Mild TR Elevated RVSP 45-50 mmHg Electronically signed by : Tita Girard, 01/06/2023 14:56:54
--- NOTE | 2023-01-06 07:40 | EXP.ACUTE.PN ---
Subjective *Date: 01/06/23 *Time: 07:40 Interval history: Patient slept comfortably overnight and has had no chest pain or dyspnea. She remains in atrial fibrillation on telemetry monitoring. Medical Exam Vital signs and Labs for Last 24 Hours: Vital Signs Temp Pulse Pulse Resp BP BP Pulse Ox 01/06/23 07:33 97.9 F 109 H 16 136/84 95 01/06/23 06:17 01/06/23 05:00 01/06/23 04:00 120 H 01/06/23 04:00 98.3 F 117 H 20 122/104 H 93 L 01/06/23 03:00 01/06/23 01:00 01/06/23 00:00 120 H 01/06/23 00:00 98.5 F 110 H 18 136/79 90 L 01/05/23 23:00 01/05/23 20:00 130 H 01/05/23 21:00 01/05/23 20:00 97.9 F 108 H 18 143/75 H 97 01/05/23 20:00 104 H 01/05/23 16:00 130 H 01/05/23 17:00 01/05/23 15:00 01/05/23 15:52 98.1 F 106 H 18 133/83 90 L 01/05/23 15:08 97.9 F 105 H 23 119/84 01/05/23 14:00 111 H 24 106/71 L 98 01/05/23 13:31 118 H 119/67 97 01/05/23 13:06 98.3 F 103 H 23 112/68 98 O2 Del Method 01/06/23 07:33 Room Air 01/06/23 06:17 Room Air 01/06/23 05:00 Room Air 01/06/23 04:00 01/06/23 04:00 Room Air 01/06/23 03:00 Room Air 01/06/23 01:00 Room Air 01/06/23 00:00 01/06/23 00:00 Room Air 01/05/23 23:00 Room Air 01/05/23 20:00 01/05/23 21:00 Room Air 01/05/23 20:00 Room Air 01/05/23 20:00 Room Air 01/05/23 16:00 01/05/23 17:00 Room Air 01/05/23 15:00 Room Air 01/05/23 15:52 Room Air 01/05/23 15:08 Room Air 01/05/23 14:00 01/05/23 13:31 01/05/23 13:06 Room Air Intake and Output 01/05/23 01/06/23 01/06/23 19:59 03:59 11:59 Intake Total 1040 / 1350 310 / 1350 Output Total 200 / 200 0 / 200 0 / 200 Balance 840 / 1150 310 / 1150 0 / 1150 Intake: Intake, Oral Amount 540 / 840 300 / 840 Intake, Other Amount 10 / 10 Intake, Total IV Amount 500 / 500 Output: Output, Urine Amount 200 / 200 0 / 200 0 / 200 Other: Intake, Other Source Saline Solution Number of Unmeasured Voids 1 1 1 Weight 179 lb 6 oz 176 lb 1 oz Patient Weight 01/06/23 11:59 Weight 176 lb 1 oz Laboratory Results - last 24 hr 01/05/23 13:26: WBC 10.5, RBC 4.09 L, Hgb 11.9 L, Hct 36.0 L, MCV 88.1, MCH 29.2, MCHC 33.2, RDW 13.6, Plt Count 357, MPV 7.7, Neut % (Auto) 73.0, Lymph % (Auto) 19.2, [place] % (Auto) 5.1, Eos % (Auto) 2.2, Baso % (Auto) 0.5, Neut # (Auto) 7.7, Lymph # (Auto) 2.0, [place] # (Auto) 0.5, Eos # (Auto) 0.2, Baso # (Auto) 0.1, Sodium 132 L, Potassium 3.9, Chloride 94 L, Carbon Dioxide 26, Anion Gap 15.9 H, BUN 12, Creatinine 1.00, Estimated Creat Clear 66, Estimated GFR 55 L, Est GFR ( Amer) 66, Glucose 117 H, Calcium 8.8, Magnesium 1.9, Total Bilirubin 0.3, AST 33, ALT 29, Alkaline Phosphatase 95, Troponin I < 0.01, NT-Pro-B Natriuret Pep 5820 H, Total Protein 6.7, Albumin 4.0, Globulin 2.7, Albumin/Globulin Ratio 1.5, TSH 1.80 01/05/23 17:05: Magnesium 2.0, Troponin I < 0.01 01/05/23 20:15: Troponin I < 0.01 I & O for Labs for Last 24 Hours: Intake & Output 01/03/23 01/04/23 01/05/23 01/06/23 11:59 11:59 11:59 11:59 Intake Total 1350 / 1350 Output Total 200 / 200 Balance 1150 / 1150 Weight 176 lb 1 oz Comment:: Patient is pleasant, alert, oriented x3. Lungs clear, heart rate in the 100 range irregularly, no murmurs. No edema or clubbing, neurologically intact. No edema. Assessment and Plan *Assessment and plan (1) Atrial fibrillation with RVR: Status: Acute Category: Medical Code(s): I48.91 - Unspecified atrial fibrillation Plan Rate is already improved with metoprolol. It seems as if patient has not been in fib for very long. Plan will be for telemetry monitoring through the night, we have administered a dose of Lovenox and tomorrow I will ask Dr. Kirby to consider RALF to assess for clot and then consider cardioversion. Obviously plan may
[2023-01-06 08:15] LABS: Chloride 104 mmol/L (98-107)
[2023-01-06 08:16] LABS: Potassium 4.2 mmoL/L (3.5-5.1); Sodium 139 mmol/L (136-145)
[2023-01-06 08:18] LABS: Blood Urea Nitrogen 14 mg/dl (7-17); Creatinine Clearance Estimated 64 mL/min (50-200); Estimated Glomerular Filt Rate 62 ml/min (>60); GFR (African American) 74 ML/MIN (>60)
[2023-01-06 08:19] LABS: Anion Gap 12.2 mEq/L (5-15); Calcium 9.2 mg/dl (8.4-10.2); Carbon Dioxide 27 mmol/L (22.0-30.0); Glucose 105 mg/dl (74-100)
--- NOTE | 2023-01-06 09:24 | CA_ITS ---
APPROVED REPORT EXAM: Comprehensive 2D, Doppler, and color-flow Echocardiogram Senior Program Analyst: AUGUSTIN Mchugh, DIDIS Ht: 5 ft 3 in Wt: 179lbs BSA: 1.84 BP: 106/71 mmHg Rhythm: Atrial Fibrillation Indications: Afib, Bilateral atrial enlargement, Mitral regurgitation, HTN Procedure After obtaining informed consent, patient underwent transesophageal echo in the [facility]. Type of Sedation : MAC Sedation was administered by Abe Krishnamurthy C.R.N.A. Sedation start time: 15:10 Case end Time: 15:58 Sedation was achieved intravenously with: Propofol (200) Transesophageal probe was inserted and advanced into esophagus without difficulty by Dr. Shaheed Girard. The RALF was performed without complications. Synchronized Cardioversion acheived with 150 Joules after 1 attempt(s). Rhythm following Synchronized Cardioversion: Normal Sinus Rhythm Throughout the procedure, the blood pressure, pulse oximetry, cardiac rhythm, and rate were monitored. The patient tolerated the procedure without adverse effects. Recovery from conscious sedation was uneventful and vital signs were stable. Left Ventricle The left ventricle is normal size. The left ventricular systolic function is normal. The left ventricular ejection fraction is within the normal range. There is increased LV wall thickness. There is normal LV segmental wall motion. LVEF is 55%. Right Ventricle The right ventricle is normal size. The right ventricular systolic function is normal. Atria Left atrium is severely dilated. No thrombus is visualized in the left atrium or appendage. Right atrium is moderately dilated. Aortic Valve The aortic valve is mildly thickened. There is no aortic valvular stenosis. No aortic regurgitation. Mitral Valve The mitral valve is mildly thickened. No evidence of mitral valve stenosis. Moderate mitral regurgitation. Tricuspid Valve The tricuspid valve leaflets are thin and pliable. Mild tricuspid regurgitation. RVSP is 20 mmHg + RA pressure. Pulmonic Valve The pulmonary valve is normal in structure. Trace pulmonic regurgitation. Great Vessels The aortic root is normal in size. The ascending aorta is normal in size. Pericardium There is no pericardial effusion. Other Information Study Quality: Fair Conclusion Normal biventricular systolic function. Moderate MR. No evidence of LA or EDUIN thrombus. Of note, this RALF was performed prior to DCCV in the setting of atrial fibrillation. Once the RALF was concluded and the EDUIN was determined to be free of thrombus, the patient underwent DCCV with 1 shock of 150 J, after which she successfully converted from AFib to NSR. She was subsequently transferred to PACU in stable condition. Electronically signed by : Tita Girard, 01/06/2023 22:20:23
--- NOTE | 2023-01-06 10:22 | EXP.CARD.CON ---
History of Present Illness History of Present Illness Consult date: 01/06/23 Requesting physician: Guillaume Mauro Consult reason: shortness of breath Chief complaint: New onset A-fib RVR History of present illness: 72-year-old white female with past medical history of hypertension presented to emergency department yesterday with complaints of 2 days of shortness of breath. Upon presentation to ER patient was noted to be in A-fib RVR with a rate of 115. Labs as follow: WBC 10.5, hemoglobin 11.9, sodium 132, potassium 3.9, creatinine 1, serial troponins negative and BNP 5820. CTA of chest was performed and showed no emboli seen to the level of the lobar pulmonary arterial vessels but with suboptimal imaging. Patient was given Lovenox and admitted for A-fib RVR and for cardiology consult. This morning patient is resting comfortably in bed denies chest pain reports mild shortness of air. [facility] Disclaimer: The information contained in this section may have been updated after the patient was seen, as this information can be updated by other users. Medical History (Updated 01/05/23 @ 16:56 by So Amin RN) Anxiety and depression Diverticulosis GERD (gastroesophageal reflux disease) HTN (hypertension) Knee fracture Migraines Osteoarthritis Surgical History H/O esophagogastroduodenoscopy History of colonoscopy History of repair of rotator cuff Family History Other Family history of cancer Social History (Updated 01/05/23 @ 16:56 by So Amin RN) Smoking Status: Never smoker second hand exposure: No alcohol intake: never substance use type: denies use current occupational status: retired Travel in the last 8 weeks: None household members: spouse housing: house current occupational exposures/hazards: No caffeine: Yes Review of Systems *Cardiovascular Cardiovascular: Denies chest pain and Reports dyspnea *Respiratory Respiratory: Reports dyspnea Exam Data for Last 24 hours Vital signs and Labs for Last 24 Hours: Temp Pulse Resp BP Pulse Ox O2 Del Method 97.9 F 109 H 16 136/84 95 Room Air 01/06/23 07:33 01/06/23 07:33 01/06/23 07:33 01/06/23 07:33 01/06/23 07:33 01/06/23 07:33 Laboratory Results - last 24 hr 01/05/23 13:26: WBC 10.5, RBC 4.09 L, Hgb 11.9 L, Hct 36.0 L, MCV 88.1, MCH 29.2, MCHC 33.2, RDW 13.6, Plt Count 357, MPV 7.7, Neut % (Auto) 73.0, Lymph % (Auto) 19.2, [place] % (Auto) 5.1, Eos % (Auto) 2.2, Baso % (Auto) 0.5, Neut # (Auto) 7.7, Lymph # (Auto) 2.0, [place] # (Auto) 0.5, Eos # (Auto) 0.2, Baso # (Auto) 0.1, Sodium 132 L, Potassium 3.9, Chloride 94 L, Carbon Dioxide 26, Anion Gap 15.9 H, BUN 12, Creatinine 1.00, Estimated Creat Clear 66, Estimated GFR 55 L, Est GFR ( Amer) 66, Glucose 117 H, Calcium 8.8, Magnesium 1.9, Total Bilirubin 0.3, AST 33, ALT 29, Alkaline Phosphatase 95, Troponin I < 0.01, NT-Pro-B Natriuret Pep 5820 H, Total Protein 6.7, Albumin 4.0, Globulin 2.7, Albumin/Globulin Ratio 1.5, TSH 1.80 01/05/23 17:05: Magnesium 2.0, Troponin I < 0.01 01/05/23 20:15: Troponin I < 0.01 01/06/23 07:35: Sodium 139, Potassium 4.2, Chloride 104, Carbon Dioxide 27, Anion Gap 12.2, BUN 14, Creatinine 0.90, Estimated Creat Clear 64, Estimated GFR 62, Est GFR ( Amer) 74, Glucose 105 H, Calcium 9.2 I & O for Last 24 hours: Intake & Output 01/03/23 01/04/23 01/05/23 01/06/23 23:59 23:59 23:59 23:59 Intake Total 1110 / 1350 240 / 240 Output Total 200 / 200 0 / 0 Balance 910 / 1150 240 / 240 Weight 179 lb 6 oz 176 lb 1 oz Constitutional Constitutional: no acute distress *Routine Respiratory Exam Respiratory: Present CTA bilaterally and symmetric chest movement *Routine Cardiovascular Exam Cardiovascular: Present RRR, Normal S1 and Normal S2 *Routine Abdominal Exam Abdominal: Present soft and normoactive bowel sounds; Absent
--- NOTE | 2023-01-06 14:44 | PC.NURSE ---
Pt left unit for procedure at this time
--- NOTE | 2023-01-06 16:13 | ECG_ITS ---
APPROVED REPORT Exam: Resting ECG HR:78 bpm ECG Measurements Heart Rate 78 AXES MA 193 P 68 QRSd 111 QRS 25 QT 424 T 29 QTc 458 Conclusion SINUS RHYTHM MODERATE INTRAVENTRICULAR CONDUCTION DELAY [110+ ms QRS DURATION] BORDERLINE ECG UNCONFIRMED REPORT Electronically signed by : Guillaume Mauro MD 01/07/2023 06:40:43
[2023-01-07] VITALS: BP 123/56; PULSE 90; PULSE 93; RESP 20; TEMP 36.9; O2SAT 96
[2023-01-07 04:00] VITALS: BP 125/62; PULSE 90; PULSE 92; RESP 16; TEMP 36.8; O2SAT 94; BMI 31.6
--- NOTE | 2023-01-07 05:19 | PC.NURSE ---
Pt has had no complaint this shift. Pt denies CP or SOA. NSR on tele.
[2023-01-07 06:39] LABS: Basophils # 0.1 K/mm3 (0-0.2); Basophils % 0.5 % (0.1-2.0); Eosinophils # 0.4 K/mm3 (0.0-0.4); Eosinophils % 3.5 % (0.1-12.0); Hematocrit 37.2 % (37.0-47.0); Hemoglobin 11.7 g/dL (12.2-16.2); Lymphocytes % 19.3 % (10-50); Mean Corpuscular HGB Conc 31.5 g/dL (31.8-35.4); Mean Corpuscular Hemoglobin 28.1 pg (27.0-31.2); Mean Corpuscular Volume 89.2 fl (81-99); Mean Platelet Volume 7.4 fl (7.4-10.4); Monocytes # 0.7 K/mm3 (0.1-1.0); Monocytes % 6.9 % (1.7-9.3); Neutrophils # 7.2 K/mm3 (1.8-7.8); Neutrophils % 69.9 % (37.0-80.0); Platelet Count 340 K/mm3 (142-424); Red Blood Count 4.17 M/mm3 (4.20-5.40); Red Cell Distribution Width 13.8 % (11.5-17.5); White Blood Count 10.3 K/mm3 (4.8-10.8)
[2023-01-07 06:40] LABS: Chloride 102 mmol/L (98-107); Potassium 4.1 mmoL/L (3.5-5.1); Sodium 137 mmol/L (136-145)
[2023-01-07 06:43] LABS: Anion Gap 11.1 mEq/L (5-15); Blood Urea Nitrogen 14 mg/dl (7-17); Calcium 9.1 mg/dl (8.4-10.2); Carbon Dioxide 28 mmol/L (22.0-30.0); Creatinine Clearance Estimated 65 mL/min (50-200); Estimated Glomerular Filt Rate 62 ml/min (>60); GFR (African American) 74 ML/MIN (>60); Glucose 100 mg/dl (74-100)
[2023-01-07 08:00] VITALS: BP 142/71; PULSE 106; RESP 16; TEMP 36.8; O2SAT 100
--- NOTE | 2023-01-07 08:12 | EXP.DC.SUM ---
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 Her coworker became alarmed by her symptoms today and encouraged her to call our office and we encouraged her to go to the emergency department. In the ER she was found to have atrial fibrillation with rapid ventricular response. Consideration was given for cardioversion but given the uncertain length of time of her dyspnea it was decided to admit, begin rate control and administer Lovenox and regroup in regards to decision about cardioversion. Hospital Course Hospital Course Hospital Course: Patient was admitted with new onset atrial fibrillation. Metoprolol was given to assist with rate control and this did a nice job. She was evaluated by cardiology at my request the following morning given the recent onset of A-fib for possible cardioversion. They performed a RALF which revealed severely enlarged left atrium but no other valvular issues or clot formation and she underwent successful cardioversion back into sinus rhythm. She felt well through the night last night and feels good this morning. She remains in sinus rhythm. Pulm to discharge home today with [place], continued blood pressure monitoring, follow-up with cardiology next week and I will see her in office in 2 days for follow-up EKG and blood pressure check. Exam Data for Last 24 hours Vital signs and Labs for Last 24 Hours: Temp Pulse Resp BP Pulse Ox O2 Del Method 98.3 F 92 H 16 125/62 94 L Room Air 01/07/23 04:00 01/07/23 04:00 01/07/23 04:00 01/07/23 04:00 01/07/23 04:00 01/07/23 06:50 Laboratory Results - last 24 hr 01/06/23 07:35: Sodium 139, Potassium 4.2, Chloride 104, Carbon Dioxide 27, Anion Gap 12.2, BUN 14, Creatinine 0.90, Estimated Creat Clear 64, Estimated GFR 62, Est GFR ( Amer) 74, Glucose 105 H, Calcium 9.2 01/07/23 05:48: WBC 10.3, RBC 4.17 L, Hgb 11.7 L, Hct 37.2, MCV 89.2, MCH 28.1, MCHC 31.5 L, RDW 13.8, Plt Count 340, MPV 7.4, Neut % (Auto) 69.9, Lymph % (Auto) 19.3, [place] % (Auto) 6.9, Eos % (Auto) 3.5, Baso % (Auto) 0.5, Neut # (Auto) 7.2, Lymph # (Auto) 2.0, [place] # (Auto) 0.7, Eos # (Auto) 0.4, Baso # (Auto) 0.1, Sodium 137, Potassium 4.1, Chloride 102, Carbon Dioxide 28, Anion Gap 11.1, BUN 14, Creatinine 0.90, Estimated Creat Clear 65, Estimated GFR 62, Est GFR ( Amer) 74, Glucose 100, Calcium 9.1 I & O for Last 24 hours: Intake & Output 01/04/23 01/05/23 01/06/23 01/07/23 11:59 11:59 11:59 11:59 Intake Total 1350 / 1350 540 / 540 Output Total 200 / 200 0 / 0 Balance 1150 / 1150 540 / 540 Weight 176 lb 1 oz 178 lb 3.2 oz Constitutional Constitutional: no acute distress *Routine HEENT Exam Head: Present normocephalic Eye: Present EOMI and PERRL ENT: Present mucous membranes moist *Routine Neck Exam Neck: Present supple; Absent lymphadenopathy *Routine Respiratory Exam Respiratory: Present CTA bilaterally *Routine Cardiovascular Exam Cardiovascular: Present RRR *Routine Abdominal Exam Abdominal: Present soft and normoactive bowel sounds; Absent tenderness *Routine Extremities Exam Extremities: Absent cyanosis, clubbing or edema *Routine Skin Exam Skin: Present warm; Absent rash *Routine Neurological Exam Neurological: Present alert and oriented X3 Results Data Completed and Pending Labs on day of discharge: Labs from last 24 hours 01/07/23 01/06/23 05:48 07:35 WBC 10.3 RBC 4.17 L Hgb 11.7 L Hct 37.2 MCV 89.2 MCH 28.1 MCHC 31.5 L RDW 13.8 Plt Count 340 MPV 7.4 Neut % (Auto) 69.9 Lymph % (Auto) 19.3 [place] % (Auto) 6.9 Eos % (Auto) 3.5 Baso % (Auto) 0.5 Neut # (Auto) 7.2 Lymph # (Auto) 2.0 [place] # (Auto) 0.7 Eos # (Auto) 0.4 Baso # (Auto) 0.1
--- NOTE | 2023-01-07 09:18 | EXP.CARD.PN ---
Subjective Subjective Date: 01/07/23 Time: 08:30 Principal diagnosis: New onset A-fib RVR Interval history: Status post successful cardioversion yesterday. Denies any complaints. Morning labs reviewed. Patient remains in normal sinus rhythm with a rate of 100 Exam Data for Last 24 hours Vital signs and Labs for Last 24 Hours: Temp Pulse Resp BP Pulse Ox O2 Del Method 98.3 F 106 H 16 142/71 H 100 Room Air 01/07/23 08:00 01/07/23 08:00 01/07/23 08:00 01/07/23 08:00 01/07/23 08:00 01/07/23 08:00 Laboratory Results - last 24 hr 01/07/23 05:48: WBC 10.3, RBC 4.17 L, Hgb 11.7 L, Hct 37.2, MCV 89.2, MCH 28.1, MCHC 31.5 L, RDW 13.8, Plt Count 340, MPV 7.4, Neut % (Auto) 69.9, Lymph % (Auto) 19.3, [place] % (Auto) 6.9, Eos % (Auto) 3.5, Baso % (Auto) 0.5, Neut # (Auto) 7.2, Lymph # (Auto) 2.0, [place] # (Auto) 0.7, Eos # (Auto) 0.4, Baso # (Auto) 0.1, Sodium 137, Potassium 4.1, Chloride 102, Carbon Dioxide 28, Anion Gap 11.1, BUN 14, Creatinine 0.90, Estimated Creat Clear 65, Estimated GFR 62, Est GFR ( Amer) 74, Glucose 100, Calcium 9.1 I & O for Last 24 hours: Intake & Output 01/04/23 01/05/23 01/06/23 01/07/23 23:59 23:59 23:59 23:59 Intake Total 1110 / 1350 780 / 780 Output Total 200 / 200 0 / 0 0 / 0 Balance 910 / 1150 780 / 780 0 / 0 Weight 179 lb 6 oz 176 lb 1 oz 178 lb 3.2 oz Constitutional Constitutional: no acute distress *Routine Respiratory Exam Respiratory: Present CTA bilaterally and symmetric chest movement *Routine Cardiovascular Exam Cardiovascular: Present RRR, Normal S1 and Normal S2 *Routine Abdominal Exam Abdominal: Present soft and normoactive bowel sounds; Absent tenderness *Routine Extremities Exam Extremities: Present full ROM and normal capillary refill; Absent edema *Routine Skin Exam Skin: Present intact, dry and warm Detailed Neck Exam: Thyroids Thyroid: Absent bruit Progress Note: A&P Assessment and plan (1) Atrial fibrillation with RVR: Status: Acute Assessment and Plan Assessment and Plan for All Diagnoses:: A-fib RVR Chadsvasc score 3 -Patient remains in A-fib RVR with rate in the low 100s. Plan for RALF/cardioversion today. Discussed risk versus benefits with patient she is agreeable. Premedicated with Lovenox -Echo 01/06/2023 shows normal biventricular systolic function, mild to moderate MR, mild TR, elevated RVSP 45-50 -Consider outpatient ischemic evaluation due to new onset A-fib 01/07/2023: Patient is status post successful cardioversion 01/06/2023. Remains in normal sinus with a rate of 100. Plan to increase bisoprolol to 10 mg p.o. daily. Start Xarelto 20 mg p.o. daily Hypertension -Well-controlled -Bisoprolol/hydrochlorothiazide 10/6.25 mg 1 p.o. daily CV summary 01/07/2023: CV stable for discharge. Please have patient follow-up in cardiology clinic in 1 week for reevaluation. Patient needs outpatient ischemic evaluation due to new onset A-fib. Please continue below listed medications. CV meds Aspirin 81 mg p.o. daily Bisoprolol 10 mg p.o. daily Xarelto 20 mg p.o. daily Hydrochlorothiazide 6.25 mg p.o. daily
--- NOTE | 2023-01-07 10:17 | PC.NURSE ---
spoke with ray about cardiology increasing bisoprolol. patient takes 5mg-6.25mg bisoprolol/hctz combo. md asked for the 10 mg-6.25mg bisoprolol/hctz be called in to patient pharmacy.. called [facility] and relayed this prescription.
--- NOTE | 2023-01-08 14:13 | CARE MANAGER ---
Contacted patient related to hospital discharge. Patient states she is doing better. She denies questions or concerns and is aware of her follow up appointments. TYRELL Dean
== END 2023-01-07 10:44 | disposition home or self-care (01) ==
LOC: ER 14:12 → 2ND 14:59
PROVIDERS: Internal Medicine; Admitting Provider Internal Medicine Adolescent Medicine; Emergency Provider Student in an Organized Health Care Education/Training Program; PCP Nurse Practitioner Family; Visit Provider Internal Medicine Adolescent Medicine
DX: I48.91 Unspecified atrial fibrillation (principal); Z79.899 Other long term (current) drug therapy; R06.9 Unspecified abnormalities of breathing; I34.0 Nonrheumatic mitral (valve) insufficiency
CPT/HCPCS: 36415; 71275; 80048; 80053; 83735; 83880; 84443; 84484; 85025; 92960; 93005; 93306; 93312; 99291; G0378; Q9967

== ENCOUNTER → 2023-01-14 11:58 | Outpatient (CLI) | payer MEDICARE, SELFPAY | PROVIDERS: PCP Internal Medicine Adolescent Medicine; Visit Provider Internal Medicine | DX: I10 Essential (primary) hypertension (principal); I48.91 Unspecified atrial fibrillation; K21.9 Gastro-esophageal reflux disease without esophagitis; R07.89 Other chest pain; R94.31 Abnormal electrocardiogram [ECG] [EKG]; Z79.01 Long term (current) use of anticoagulants | CPT/HCPCS: 93270 ==

== ENCOUNTER → 2023-01-21 06:25 | Outpatient (CLI) | payer MEDICARE, SELFPAY ==
--- NOTE | 2023-01-21 | CA_ITS ---
APPROVED REPORT Exam: Pharmacologic Technologist: Mariaelena Winn, Ht: 5 ft 3 in Wt: 180 lbs BSA: 1.85 m2 HR: 99 bpm BP: 130/77 mmHg Rhythm: AFIB, NON SPECIFIC ST ABNS INFERIOR AND LATERALLY, PVCS Medical History Medical History: HTN Medications: Aspirin,,,,, XaRELTO,,,,, DulOXETINE,,,,, Sumatriptan,,,,, SucCINATE,,,,, BisOPROLOL - HCTZ,,,,, BuPROPION HCL,,,,, Allergies: No known drug allergies Cardiac Risk Factors: HTN Stress Test Details Test: LEXISCAN HR Resting HR: 105 bpm Max Heart Rate (APMHR): 148 bpm Max HR Achieved: 129 bpm Target HR (85% APMHR): 126 bpm % of APMHR: 87 Recovery HR: 109 bpm BP Resting BP: 130/77 mmHg Max BP: 130/77 mmHg Recovery BP: 114.0/69.0 mmHg ECG Resting ECG: AFIB/RVR, ST ABNS INFEROLATERALLY, PVCS Stress ECG: NO SIGNIFICANT ST CHANGES Arrhythmia: PVCS Clinical Exercise duration: 04:04 min Highest Stage Achieved: Exercise capacity: 1.0 METs Stress ECG Conclusion PT HAD VERY BRIEF SOA. NO CP OCCASIONAL PVCS NO SIGNIFICANT ST CHANGES NON-DIAGNOSTIC LEXISCAN STRESS DUE TO BASELINE ABNORMALITIES MYOVIEW IMAGES REPORTED SEPARATELY Test Summary REST 07:39 . . 105 . 130/ 77 . . Stage 1 01:00 . . 114 . . . . Stage 2 01:00 . . 117 . . . . Stage 3 01:00 . . 116 . 117/ 79 . . Stage 4 01:00 . . 115 . 121/ 78 . . Stage 4 01:04 . . 109 . 121/ 78 . Stop exercise at 04:04 RECOVERY 01:00 . . 119 . . . . RECOVERY 02:00 . . 109 . . . . RECOVERY 03:00 . . 109 . 112/ 64 . . RECOVERY 03:46 . . 106 . 114/ 69 . . Electronically signed by : Tita Girard, 01/28/2023 23:17:39
--- NOTE | 2023-01-21 06:39 | NM_ITS ---
APPROVED REPORT Exam: Nuclear Stress Test Indication: soa..palpitations..a-fib..high BP..FATIGUE..FAMILY HX Patient Location: Outpatient Stress Tech: Mariaelena Winn [place] Tech:JR Pennington RT(R)(N) Ht: 5 ft 3 in Wt: 180 lbs Bra Size: 38d HR: 105 bpm BP: 130/77 mmHg BSA: 1.85 m2 Rhythm: Atrial Fibrillation TID: 1.01 BMI: 31.8 History: soa..palpitations..a-fib..high BP..fatigue..family hx Procedure: Patient received 0.4 mg of intravenous Lexiscan, resting heart rate 105 bpm, resting blood pressure 130/77 mmHg, with Lexiscan maximum heart rate achieved was 129 bpm which is 85 % of the maximum predicted heart rate and blood pressure was 130/77 mmHg. With Lexiscan, patient denied any complaint of chest pain. Cardiac Stress and Resting SPECT Images: Cardiac Stress and Resting SPECT images were obtained using technetium 99m Myoview 32.7 mCi stress and 10.66 mCi at rest. Resting and stress imaging in both supine and prone positions demonstrate no evidence of fixed or reversible perfusion defects. Gated imaging demonstrates low normal global and regional LV systolic function. LVEF is calculated at 50%. Conclusion: No evidence of fixed or reversible perfusion defects. Gated imaging demonstrates low normal global and regional LV systolic function. LVEF is calculated at 50%. Electronically signed by : Tita Girard, 01/28/2023 23:19:51
== END ==
PROVIDERS: PCP Internal Medicine Adolescent Medicine; Visit Provider Internal Medicine
DX: I10 Essential (primary) hypertension (principal); I48.91 Unspecified atrial fibrillation; K21.9 Gastro-esophageal reflux disease without esophagitis; R07.89 Other chest pain; R94.31 Abnormal electrocardiogram [ECG] [EKG]; Z79.01 Long term (current) use of anticoagulants
CPT/HCPCS: 78452; 93017; A9502; J2785

== ENCOUNTER 2023-02-06 13:54 | Emergency (ER) | payer MEDICARE, SELFPAY ==
--- NOTE | 2023-02-06 13:21 | ECG_ITS ---
APPROVED REPORT Exam: Resting ECG HR:132 bpm ECG Measurements Heart Rate 132 AXES QRSd 89 QRS 69 QT 332 T 58 QTc 410 Conclusion ATRIAL FIBRILLATION WITH RAPID VENTRICULAR RESPONSE NONSPECIFIC ST & T-WAVE ABNORMALITY ABNORMAL RHYTHM ECG UNCONFIRMED REPORT Electronically signed by : Guillaume Mauro MD 02/09/2023 20:09:35
[2023-02-06 13:55] VITALS: BP 121/83; PULSE 121; RESP 18; TEMP 37.1; O2SAT 97; BMI 31.8
[2023-02-06 13:59] VITALS: BP 121/83; PULSE 137; RESP 20; O2SAT 94
--- NOTE | 2023-02-06 14:23 | PC.NURSE ---
DR MONCADA AT BEDSIDE
--- NOTE | 2023-02-06 14:26 | HMH.EDGENADL ---
Discharge Plan Disposition Patient Disposition: Home, Self-Care Condition: Fair Chief Complaint: Shortness of Breath/Dyspnea Prescriptions Prescriptions: No Action metoprolol succinate [Toprol XL] 50 mg tablet extended release 24 hr 100 mg PO DAILY Prolia 60 mg/mL syringe 60 mg SQ [id number] diltiazem HCl [Cardizem CD] 180 mg capsule,extended release 24hr 180 mg PO DAILY Qty: 30 5RF furosemide [Lasix] 20 mg tablet 20 mg PO DAILY Qty: 30 5RF sumatriptan succinate 100 MG tablet 100 mg PO NEEDED PRN (Reason: Migraine Headache) aspirin 81 MG tablet,delayed release (DR/EC) 81 mg PO DAILY duloxetine 60 mg capsule,delayed release(DR/EC) 60 mg PO BID bupropion HCl [Wellbutrin XL] 150 mg Tablet Extended Release 24 Hr 150 mg PO DAILY Xarelto 20 mg tablet 20 mg PO DAILY Qty: 30 0RF Rx Instructions: must administer with evening meal Referrals Follow up/Referrals: Guillaume Mauro MD [Primary Care Provider] - See instructions Activity Restrictions/Add. Instructions Additional Instructions/Restrictions: Please follow-up with your watch engine operator next week. Do this even if you feel better. Your work-up today in the emergency department showed that your heart is beating too fast from the atrial fibrillation. You may also have something called congestive heart failure. You will need to follow-up with your watch engine operator to have further work-up on this. Return to the emergency department immediately if you feel worse in any way. Clinical Impressions Clinical Impression: Atrial fibrillation with rapid ventricular response Congestive heart failure Qualifiers: Heart failure type: diastolic Heart failure chronicity: unspecified Qualified Code(s): I50.30 - Unspecified diastolic (congestive) heart failure Instructions Patient Instructions: DI for Atrial Fibrillation Discharge ED Provider: Anton Jackson Adult HPI General Chief complaint: Shortness of Breath/Dyspnea Stated complaint: ankles swollen Time Seen by Provider: 02/06/23 14:21 Mode of Arrival: Ambulatory Limitations: No Limitations Description of Symptoms (Recalled from ER Triage Doc. by RN): PT WITH C/O ANKLE SWELLING THAT SHE NOTICED TODAY. REPORTS A-FIB WITH MULTIPLE MEDICATION CHANGES. REPORTS SHORTNESS OF BREATH History of Present Illness HPI narrative: The patient presents to the emergency department complaining of a 6-week history of on and off shortness of breath and palpitations. She was diagnosed with atrial fibrillation approximately 1-1/2 months ago. Initially she was started on metoprolol but did not tolerated well. She now takes diltiazem. She complains of some lower extremity swelling and difficulty walking due to shortness of breath. She denies chest pain. Related Data Home Medications Medication Instructions Recorded Confirmed aspirin 81 mg tablet,delayed 81 mg PO DAILY [facility] 03/27/20 02/01/23 release sumatriptan succinate 100 mg tablet 100 mg PO NEEDED PRN Migraine 03/27/20 02/01/23 Headache bupropion HCl 150 mg 24 hr tablet, 150 mg PO DAILY . 01/05/23 02/01/23 extended release (Wellbutrin XL) duloxetine 60 mg capsule,delayed 60 mg PO BID Mood 01/05/23 02/01/23 release denosumab 60 mg/mL subcutaneous 60 mg SQ [id number] 02/01/23 02/01/23 syringe (Prolia) metoprolol succinate 50 mg 100 mg PO DAILY 02/01/23 02/01/23 tablet,extended release 24 hr (Toprol XL) Previous Rx's Medication Instructions Recorded rivaroxaban 20 mg tablet (Xarelto) 20 mg PO DAILY #30 tabs 01/07/23 diltiazem HCl 180 mg 180 mg PO DAILY #30 caps 02/01/23 capsule,extended release 24 hr (Cardizem CD) furosemide 20 mg tablet (Lasix) 20 mg PO DAILY #30 tabs 02/01/23 Allergies Allergy/AdvReac Type Severity Reaction Status Date / Time No Known Allergies Allergy Verified 02/01/23 11:18 [facility] Disclaimer: The information contained in this section may have been
--- NOTE | 2023-02-06 14:29 | XR_ITS ---
PROCEDURE INFORMATION: Exam: XR Chest Exam date and time: 02/06/2023 3:00 PM Age: 72 years old Clinical indication: Dyspnea TECHNIQUE: Imaging protocol: Radiologic exam of the chest. Views: 1 view. COMPARISON: CT ANGIO CHEST PE PROTOCOL 01/05/2023 2:41 PM FINDINGS: Lungs: Unremarkable. No consolidation. Pleural spaces: Unremarkable. No pleural effusion. No pneumothorax. Heart/Mediastinum: Cardiomegaly Bones/joints: Degenerative changes in both glenohumeral joints IMPRESSION: No focal consolidation
--- NOTE | 2023-02-06 14:33 | PC.NURSE ---
PT ASSISTED TO BR
--- NOTE | 2023-02-06 14:45 | PC.NURSE ---
RAD at for CXR
--- NOTE | 2023-02-06 14:45 | PC.NURSE ---
XR AT BEDSIDE
--- NOTE | 2023-02-06 14:54 | PC.NURSE ---
PT MEDICATED PER EMAR. NO NEEDS AT THIS TIME. CALL LIGHT WITHIN REACH
[2023-02-06 15:00] VITALS: PULSE 154; RESP 24; O2SAT 90
[2023-02-06 15:02] LABS: Basophils # 0.1 K/mm3 (0-0.2); Basophils % 0.4 % (0.1-2.0); Eosinophils # 0.3 K/mm3 (0.0-0.4); Eosinophils % 2.1 % (0.1-12.0); Hematocrit 35.1 % (37.0-47.0); Hemoglobin 10.9 g/dL (12.2-16.2); Lymphocytes # 1.9 K/mm3 (0.7-4.5); Lymphocytes % 13.8 % (10-50); Mean Corpuscular HGB Conc 31.1 g/dL (31.8-35.4); Mean Corpuscular Hemoglobin 27.7 pg (27.0-31.2); Mean Corpuscular Volume 89.1 fl (81-99); Mean Platelet Volume 7.3 fl (7.4-10.4); Monocytes # 0.9 K/mm3 (0.1-1.0); Monocytes % 6.1 % (1.7-9.3); Neutrophils # 10.8 K/mm3 (1.8-7.8); Neutrophils % 77.6 % (37.0-80.0); Platelet Count 362 K/mm3 (142-424); Red Blood Count 3.94 M/mm3 (4.20-5.40); White Blood Count 13.9 K/mm3 (4.8-10.8)
[2023-02-06 15:10] LABS: Alanine Aminotransferase 44 U/L (12-78); Albumin Level 4.2 g/dl (3.5-5.0); Albumin/Globulin Ratio 1.5 (1.1-1.8); Alkaline Phosphatase 121 U/L (38-126); Anion Gap 13.8 mEq/L (5-15); Aspartate Amino Transferase 29 U/L (14-36); Bilirubin,Total 0.5 mg/dl (0.2-1.3); Blood Urea Nitrogen 12 mg/dl (7-17); Calcium 9.1 mg/dl (8.4-10.2); Carbon Dioxide 27 mmol/L (22.0-30.0); Chloride 100 mmol/L (98-107); Creatinine Clearance Estimated 50 mL/min (50-200); Estimated Glomerular Filt Rate 40 ml/min (>60); GFR (African American) 49 ML/MIN (>60); Globulin 2.8 g/dL (1.3-3.2); Glucose 106 mg/dl (74-100); Potassium 3.8 mmoL/L (3.5-5.1); Sodium 137 mmol/L (136-145)
[2023-02-06 15:13] LABS: Activated Partial Thrombo Time 31.3 seconds (22.8-30.6); INR 1.11 (0.9-1.1); Prothrombin Time 11.9 seconds (10.1-12.5)
[2023-02-06 15:22] LABS: NT Pro Brain Natriuretic Pep. 3420 pg/mL (0-125)
[2023-02-06 15:25] LABS: Troponin I < 0.01 ng/ml (0.00-0.034)
[2023-02-06 15:30] VITALS: PULSE 129; RESP 22; O2SAT 90
[2023-02-06 15:35] VITALS: BP 139/85; PULSE 130; RESP 20; O2SAT 93
--- NOTE | 2023-02-06 15:37 | PC.NURSE ---
Rounded on pt. No needs voiced at this time. Call light within reach.
--- NOTE | 2023-02-06 15:51 | PC.NURSE ---
DR MONCADA AT BEDSIDE TO UPDATE PT
--- NOTE | 2023-02-06 16:01 | PC.NURSE ---
pt up to bathroom
[2023-02-06 16:17] VITALS: BP 130/80; PULSE 129; RESP 19; TEMP 36.7; O2SAT 94
== END 2023-02-06 16:21 | disposition home or self-care (01) ==
PROVIDERS: Emergency Provider Emergency Medicine; PCP Internal Medicine Adolescent Medicine
DX: I48.91 Unspecified atrial fibrillation (principal); I50.30 Unspecified diastolic (congestive) heart failure; I11.0 Hypertensive heart disease with heart failure; K21.9 Gastro-esophageal reflux disease without esophagitis; M19.90 Unspecified osteoarthritis, unspecified site; F41.9 Anxiety disorder, unspecified; F32.A Depression, unspecified; Z79.01 Long term (current) use of anticoagulants
CPT/HCPCS: 71045; 80053; 83880; 84484; 85025; 85610; 85730; 93005; 96374; 99284

== ENCOUNTER 2023-06-01 14:16 | Outpatient (POV) | payer MEDICARE, SELFPAY | END 2023-06-01 23:59 | disposition home or self-care (01) | LOC: SC 14:16 | PROVIDERS: PCP Internal Medicine Adolescent Medicine; Visit Provider Dermatology | DX: Z00.00 Encounter for general adult medical examination without abnormal findings (principal) ==

== ENCOUNTER 2023-06-10 10:56 | Outpatient (CLI) | payer MEDICARE, SELFPAY ==
--- NOTE | 2023-06-10 10:57 | CA_ITS ---
APPROVED REPORT EXAM: Comprehensive 2D, Doppler, and color-flow Echocardiogram Corporate Travel Agent: Uyen Arteaga CRT Ht: 5 ft 3 in Wt: 173lbs BSA: 1.82 BP: 130/70 mmHg Indications: ABLATION, SOB, ABN EKG, HTN, A FIB 2D Dimensions LA Volume 106.60 mL LA Volume Index 58.57 mL/m2 (M/F) 16-34 M-Mode Dimensions RVDd 3.22 cm (0.9-2.6) LA Diam 4.89 cm (1.9-4.0) LVDd 4.34 cm (3.5-5.7) LVDs 3.22 cm (3.5-5.7) IVSd 2.34 cm (0.6-1.1) PWd 0.41 cm (0.6-1.1) EF (Teich) 51.00% FS 25.80% EDV (Teich) 84.90 mL TAPSE 1.94 (<1.7) ESV (Teich) 41.60 mL LV Diastology E Decel Time 143 (160-240 msec) E/A Ratio 1.4 MED A' 13.70 cm/s LAT A' 7.90 cm/s Aortic Valve AO Peak GR. 5.80 mmHg Mitral Valve MV E Max Benjy. 54.0 (40-130 cm/s) MV A Velocity 40.0 (40-130 cm/s) E/A Ratio 1.36 MV PHT 42.0 ms Pulmonary Valve PV Peak Velocity 112.0 (50-150 cm/s) Tricuspid Valve TR P. Velocity 237.00 cm/s RAP Estimate 10.00 mmHg RVSP 32.50 mmHg Left Ventricle The left ventricle is normal size. The left ventricular systolic function is normal. The left ventricular ejection fraction is within the normal range. Proximal septal thickening is noted. There is no evidence of LVOT obstruction at rest. There is normal LV segmental wall motion. Diastolic function is indeterminate. LVEF is 55%. Right Ventricle The right ventricle is normal size. The right ventricular systolic function is normal. Atria The left atrium size is severely dilated. The right atrium size is mildly dilated. There is no Doppler evidence of interatrial shunt. Aortic Valve The aortic valve is mildly thickened. There is no aortic valvular stenosis. Trace aortic regurgitation. Mitral Valve The mitral valve leaflets are mildly thickened. No evidence of mitral valve stenosis. Mild mitral regurgitation. Tricuspid Valve The tricuspid valve leaflets are thin and pliable. Trace tricuspid regurgitation. There is insufficient TR jet to estimate RVSP. Pulmonic Valve The pulmonary valve is normal in structure. Trace pulmonic regurgitation. Great Vessels The aortic root is normal in size. The ascending aorta is normal in size. IVC is normal in size and collapses >50% with inspiration. Pericardium There is no pericardial effusion. Other Information Study Quality: Fair Conclusion Normal biventricular systolic size and function. Biatrial dilation. Mild mitral regurgitation. Electronically signed by : Tita Girard MD 06/14/2023 11:01:06
== END 2023-06-10 23:59 ==
PROVIDERS: PCP Internal Medicine Adolescent Medicine; Visit Provider Internal Medicine
DX: I48.91 Unspecified atrial fibrillation (principal); R06.02 Shortness of breath
CPT/HCPCS: 93306

== ENCOUNTER 2023-07-29 00:08 | Emergency (ER) | payer MEDICARE, SELFPAY ==
[2023-07-29 00:10] VITALS: BP 148/87; PULSE 98; RESP 18; TEMP 36.6; O2SAT 97; BMI 30.4
--- NOTE | 2023-07-29 00:19 | XR_ITS ---
PROCEDURE INFORMATION: Exam: XR Right Tibia and Fibula Exam date and time: 07/29/2023 12:35 AM Age: 72 years old Clinical indication: Pain; Knee; Right; Additional info: Fall, hemarthrosis R knee TECHNIQUE: Imaging protocol: Radiologic exam of the right tibia and fibula. Views: 2 views. COMPARISON: CR Knee R 29/07/2023 00:34 FINDINGS: Bones/joints: No acute fracture or dislocation. Soft tissues: Mild edema in the soft tissues of the calf. IMPRESSION: No acute fracture or dislocation.
--- NOTE | 2023-07-29 00:19 | XR_ITS ---
PROCEDURE INFORMATION: Exam: XR Right Femur Exam date and time: 07/29/2023 12:33 AM Age: 72 years old Clinical indication: Pain; Thigh; Right; Additional info: Fall, hemarthrosis R knee TECHNIQUE: Imaging protocol: Radiologic exam of the right femur. Views: 2 views. COMPARISON: CR XR HIP RT 2-3V W/PELVIS 13/02/2019 14:42 FINDINGS: Bones/joints: Mild right hip osteoarthrosis. Postsurgical changes of the patella. No acute fracture or dislocation. Soft tissues: Unremarkable. IMPRESSION: No acute fracture or dislocation.
--- NOTE | 2023-07-29 00:19 | XR_ITS ---
PROCEDURE INFORMATION: Exam: XR Right Knee Exam date and time: 07/29/2023 12:34 AM Age: 72 years old Clinical indication: Pain; Knee; Right; Additional info: Fall, hemarthrosis R knee TECHNIQUE: Imaging protocol: Radiologic exam of the right knee. Views: 3 views. COMPARISON: CR Femur R 29/07/2023 00:33 FINDINGS: Bones/joints: Postsurgical changes of the patella. Hardware appears intact. No acute fracture or dislocation. Mild tricompartmental osteoarthrosis. Soft tissues: Anterior soft tissue hematoma. IMPRESSION: 1. Anterior soft tissue hematoma. 2. No acute fracture or dislocation.
--- NOTE | 2023-07-29 00:37 | HMH.EDGENADL ---
Discharge Plan Disposition Patient Disposition: Home, Self-Care Condition: Good Prescriptions Prescriptions: New oxycodone 5 mg tablet 5 mg PO Q8H PRN (Reason: pain) Qty: 8 0RF No Action amiodarone 200 mg tablet 200 mg PO DAILY Prolia 60 mg/mL syringe 60 mg SQ [id number] melatonin-pyridoxine (vit B6) 5-1 mg tablet 1 tab PO HS PRN metoprolol succinate [Toprol XL] 50 mg tablet extended release 24 hr 50 mg PO DAILY pantoprazole 40 mg tablet,delayed release (DR/EC) 40 mg PO DAILY Qty: 30 5RF aspirin 81 MG tablet,delayed release (DR/EC) 81 mg PO DAILY duloxetine 60 mg capsule,delayed release(DR/EC) 60 mg PO BID bupropion HCl [Wellbutrin XL] 150 mg Tablet Extended Release 24 Hr 150 mg PO DAILY Xarelto 20 mg tablet 20 mg PO DAILY Qty: 30 0RF Rx Instructions: must administer with evening meal Referrals Follow up/Referrals: Fabian Paarda DO [Staff Physician] - See instructions Guillaume Mauro MD [Primary Care Provider] - See instructions Activity Restrictions/Add. Instructions Additional Instructions/Restrictions: You were evaluated in the emergency department today. Please apply an Randolph compressive wrap to your knee to reduce swelling. Ice and elevate your knee. supervisor [place] your prescription for pain medication and take as needed for severe pain. Do not drive or operate heavy machinery while taking narcotic pain medicine. Please follow-up with orthopedics. We have provided you with information for Dr. Parada. Call his clinic to schedule an appointment. Also follow-up with your primary care provider over the next 3 days. Return to the emergency department for new or worsening symptoms. Clinical Impressions Clinical Impression: Hemarthrosis of knee, right Instructions Patient Instructions: DI for Knee Effusion, DI for Knee Pain Discharge ED Provider: Josie Martinez General Adult HPI General Chief complaint: Extremity Injury, Lower Stated complaint: fall on 07/21, right knee started hurting today Time Seen by Provider: 07/29/23 00:13 Mode of Arrival: Ambulatory Source of Information: Patient Limitations: No Limitations Description of Symptoms (Recalled from ER Triage Doc. by RN): Pt took a fall on , believes to have fell backwards not onto her knee but leg bruised. Pt is on Xarelto and has previous sx to her right knee with hardware. History of Present Illness HPI narrative: This patient is a 72-year-old female with a history of paroxysmal atrial fibrillation on Xarelto, hypertension, and GERD presenting to the emergency department with concern for right knee pain. Patient reports that on , her granddaughter ran to her to help her and knocked her off her balance. She fell, unsure exactly if she hit anything on the way down or how she landed, and she has since had pain, swelling, and bruising to her R knee. she has a remote history of patellar fracture with hardware in place. She notes initially she was managing her pain with tylenol and ice, however today, the pain became much more severe and she was unable to sleep. She denies any other concerns, such as head injury, loss of consciousness, numbness, tingling, or other localized pain. Related Data Home Medications Medication Instructions Recorded Confirmed aspirin 81 mg tablet,delayed 81 mg PO DAILY [facility] 03/27/20 06/23/23 release bupropion HCl 150 mg 24 hr tablet, 150 mg PO DAILY . 01/05/23 06/23/23 extended release (Wellbutrin XL) duloxetine 60 mg capsule,delayed 60 mg PO BID Mood 01/05/23 06/23/23 release denosumab 60 mg/mL subcutaneous 60 mg SQ [id number] 02/01/23 06/23/23 syringe (Prolia) amiodarone 200 mg tablet 200 mg PO DAILY 06/23/23 06/23/23 melatonin 5 mg-pyridoxine (vitamin 1 tab PO HS PRN 06/23/23 06/23/23 B6) 1 mg tablet metoprolol succinate 50 mg 50 mg PO DAILY 06/23/23 06/23/23 tablet,extended release 24 hr (Toprol XL) Previous Rx's Medication Instructions Recorded rivaroxaban 20 mg tablet (Xarelto) 20 mg PO DAILY #30 tabs 01/07/23 pantoprazole 40 mg tablet,delayed 40 mg PO DAILY #30 tabs 06/24/23 release oxycodone 5 mg tablet 5 mg PO Q8H PRN pain #8 tabs 07/29/23 Allergies Allergy/AdvReac Type Severity Reaction Status Date / Time No Known Allergies Allergy Verified 06/23/23 13:32 [facility] Disclaimer: The information contained in this section may have been updated after the patient was seen, as this information can be updated by other users. Medical History group home current use of anticoagulant therapy Diverticulosis Osteoarthritis Knee fracture GERD (gastroesophageal reflux disease) Migraines Anxiety and depression HTN (hypertension) Surgical History History of colonoscopy H/O esophagogastroduodenoscopy History of repair of rotator cuff Family History Other Family history of cancer Social History Smoking Status: Never smoker second hand exposure: No alcohol intake: never substance use type: denies use current occupational status: retired Travel in the last 8 weeks: None household members: spouse housing: house current occupational exposures/hazards: No caffeine: Yes ROS Obtained: Yes All systems reviewed & no additional complaints except as documented Physical Exam General General appearance: alert and in no apparent distress Head Head exam: atraumatic and normocephalic Eye Eye exam: Present normal appearance, PERRL and EOMI ENT ENT exam: Present normal exam, normal oropharynx, mucous membranes moist and normal external ear exam Neck Neck exam: Present normal inspection, full ROM and trachea midline; Absent tenderness Chest Chest inspection: Present normal inspection and symmetric chest wall rise; Absent tenderness Respiratory Respiratory exam: Present normal lung sounds bilaterally; Absent respiratory distress, wheezes, stridor or accessory muscle use Cardiovascular Cardiovascular exam: Present regular rate and normal rhythm Abdominal Exam Abdominal exam: Present soft; Absent distention, tenderness or guarding Extremities Exam Extremities exam: Present full ROM, tenderness, normal capillary refill, edema, joint swelling and other (Tenderness to palpation of the right knee joint lines and patella with hemarthrosis. Bruising extending down the anterior medial lower leg into the ankle with mild pedal edema. Neurovascularly intact distally.) Back Exam Back exam: Present normal inspection and full ROM; Absent tenderness Neurological Exam Neurological exam: Present alert, oriented X3, CN II-XII intact and normal gait; Absent motor sensory deficit Psychiatric Psychiatric exam: Present normal affect and normal mood Skin Skin exam: Present warm and dry Medical Decision Making Medical Records Medical records reviewed: Yes I reviewed the patient's medical records. Huey Inquiry Pt receiving controlled substance: Yes Huey was queried for this patient: Yes Risks and benefits of using a controlled substance: were discussed with pt by me Vital Signs: 07/29/23 00:10 07/29/23 02:25 Temperature 98 F 98 F Temperature Source Oral Oral Pulse Rate 88 Pulse Rate [Left] 98 H Respiratory Rate 18 16 Blood Pressure 134/84 Blood Pressure [Right Arm] 148/87 H Blood Pressure Mean [Right Arm] 107 Blood Pressure Source Automatic Cuff Blood Pressure Source [Right Arm] Automatic Cuff Blood Pressure Position Sitting Blood Pressure Position [Right Arm] Sitting 02 Sat by Pulse Oximetry 97 Oxygen Delivery Method Room Air Room Air Lab Data Lab results reviewed: Yes I reviewed the patient's lab results. Orders (Tests/Meds): ED MEDICATIONS Discontinued Medications Generic Name Dose Route Start Last Admin Trade Name Freq PRN Reason Stop Dose Admin Acetaminophen 1,000 mg 07/29/23 00:24 07/29/23 02:00 Acetaminophen 500mg Tab PO 07/29/23 00:25 Not Given ONCE ONE Lidocaine 1 each 07/29/23 00:24 07/29/23 00:38 Lidocaine 5% Transdermal Patch TP 07/29/23 00:25 1 each ONCE ONE Administration Methocarbamol 500 mg 07/29/23 00:25 07/29/23 00:38 Methocarbamol 500mg Tablet PO 07/29/23 00:26 500 mg ONCE ONE Administration Naproxen 500 mg 07/29/23 00:25 07/29/23 00:38 Naproxen 500mg Tablet PO 07/29/23 00:26 500 mg ONCE ONE Administration ORDERS Category Date Time Status XR femur RT 2V Stat Exams 07/29/23 00:19 Completed XR knee RT 3V Stat Exams 07/29/23 00:19 Completed XR tibia fibula RT 2V Stat Exams 07/29/23 00:19 Completed Medical Decision Narrative: In summary, this patient is a 72-year-old female presenting to the Emergency Department for evaluation of right knee pain after a fall that happened 07/21. Differential diagnoses considered include but are not limited to hemarthrosis, contusion, fracture, strain/sprain, ligamentous injury, cartilaginous injury. Ruling out the most morbid conditions drove assessment. On exam, the patient is well-appearing. She has bruising to her right knee with hemarthrosis as well as bruising that I feel is likely dependent spreading down her anteromedial right lower leg and right ankle. She is neurovascularly intact. No calf tenderness or swelling to suggest DVT or other concern. She has full intact range of motion of her right knee which would suggest against any sort of septic arthritis. No open wounds. Workup included x-rays of the right hip/pelvis, femur, knee, and tib-fib. Patient already received Tylenol at home. She was given oral naproxen and Robaxin as well as a topical Lidoderm patch. I independently interpreted x-ray prior to the radiologist read and noted no obvious acute fracture, however the patient does have a joint effusion. Please see their read for final interpretation. On reassessment, she is resting comfortably with improvement in her pain. She remains neurovascularly intact. At this time, she does not have any acute fracture noted on x-ray, however she has a large hemarthrosis in the setting of Xarelto use. Randolph compression bandage was applied and patient was given instructions to follow-up closely with orthopedics as well as her primary care provider to ensure that her pain and symptoms improved. Given the severity of her hemarthrosis and her pain, decision was made to prescribe her a brief course of oxycodone for severe pain. I advised her of the risks of narcotic pain medication use. Patient was discharged with plan for close outpatient follow-up in stable condition after strict return precautions were given. Critical Care Critical Care Time Critical Care Time: No
[2023-07-29] MEDS: METHOCARBAMOL 500MG TABLET 500 MG PO (00:38)
[2023-07-29] MEDS: NAPROXEN 500MG TABLET 500 MG PO (00:38)
[2023-07-29] MEDS: LIDOCAINE 5% TRANSDERMAL PATCH 1 EACH TP (00:38)
--- NOTE | 2023-07-29 01:52 | PC.NURSE ---
contacted radiology to inquire about readings
[2023-07-29 02:25] VITALS: BP 134/84; PULSE 88; RESP 16; TEMP 36.6; O2SAT 99
== END 2023-07-29 02:27 | disposition home or self-care (01) ==
LOC: ER 00:47
PROVIDERS: Emergency Provider Emergency Medicine; PCP Internal Medicine Adolescent Medicine
DX: M25.061 Hemarthrosis, right knee (principal); I48.0 Paroxysmal atrial fibrillation; I10 Essential (primary) hypertension; Z79.01 Long term (current) use of anticoagulants; W03.XXXA Other fall on same level due to collision with another person, initial encounter
CPT/HCPCS: 73552; 73562; 73590; 99284

== ENCOUNTER 2023-08-03 11:04 | Outpatient (RCR) | payer MEDICARE, SELFPAY | END 2023-08-03 12:00 | disposition home or self-care (01) | LOC: PT 11:04 | PROVIDERS: Visit Provider Orthopaedic Surgery | DX: M25.561 Pain in right knee (principal) | CPT/HCPCS: 97760 ==

== ENCOUNTER 2023-08-09 09:08 | Outpatient (CLI) | payer MEDICARE, SELFPAY ==
--- NOTE | 2023-08-09 09:13 | XR_ITS ---
FINAL REPORT TECHNIQUE: Bone densitometry calculations of the lumbar spine and left hip were obtained. CLINICAL HISTORY: OSTEOPOROSIS FINDINGS: Using L1-4, the bone mineral density of the spine is 0.835 g/cm2, corresponding to T-score of -1.9 and a Z score of 0.3. This is within the range of osteopenia. Using the left hip, the bone mineral density of the femoral neck is 0.627 g/cm2, corresponding to a T-score of -2.0 and a Z-score of 0.0. This is within the range of osteopenia. Using the right hip, the bone mineral density of the femoral neck is 0.767 g/cm2, corresponding to a T-score of -1.4 and a Z-score of 0.2. This is within the range of osteopenia. NOTE: T-score: Standard deviation compared with peak bone mass of young adult mean. *Following the recommendations of the International Society of Bone densitometry, classification of hip BMD is based on the lower of two T-scores; total hip or femoral neck. IMPRESSION: 1. Bone mineral density of the lumbar spine within the range of osteopenia. 2. Bone mineral density of the left femoral neck within the range of osteopenia. 3. Bone mineral density of the right femoral neck within the range of osteopenia. Reviewed, Interpreted and Dictated by Joanna Winters MD Transcribed by Kaitlyn Sheth Authenticated and [facility]
[2023-08-09 10:31] LABS: Albumin Level 4.2 g/dl (3.5-5.0); Anion Gap 7.8 mEq/L (5-15); Blood Urea Nitrogen 18 mg/dl (7-17); Calcium 9.6 mg/dl (8.4-10.2); Carbon Dioxide 32 mmol/L (22.0-30.0); Chloride 102 mmol/L (98-107); Estimated Glomerular Filt Rate 55 ml/min (>60); GFR (African American) 66 ML/MIN (>60); Glucose 107 mg/dl (74-100); Phosphorous 4.4 mg/dl (2.5-4.5); Potassium 3.8 mmoL/L (3.5-5.1); Sodium 138 mmol/L (136-145)
[2023-08-11 13:11] LABS: Tandem-R Ostase 20.8 ug/L (.)
[2023-08-11 23:13] LABS: C-Telopeptide Serum 633 pg/mL (.)
[2023-08-12 12:29] LABS: Serial Monitoring PDF SCANNED IMAGE
== END 2023-08-09 23:59 ==
LOC: RAD 09:08
PROVIDERS: PCP Internal Medicine Adolescent Medicine; Visit Provider Internal Medicine Nephrology
DX: M81.0 Age-related osteoporosis without current pathological fracture (principal)
CPT/HCPCS: 36415; 77080; 80069; 82523; 84080

== ENCOUNTER 2023-08-31 14:01 | Outpatient (POV) | payer MEDICARE, SELFPAY | END 2023-08-31 23:59 | disposition home or self-care (01) | LOC: SC 14:01 | PROVIDERS: Visit Provider Nurse Practitioner | DX: Z00.00 Encounter for general adult medical examination without abnormal findings (principal) ==

== ENCOUNTER 2023-09-22 10:04 | Outpatient (CLI) | payer MEDICARE, SELFPAY ==
[2023-09-22 10:18] VITALS: BP 153/67; PULSE 85; RESP 17; O2SAT 99
[2023-09-22] MEDS: DENOSUMAB 60 MG/ML SYRINGE SQ (10:18)
== END 2023-09-22 10:35 | disposition home or self-care (01) ==
LOC: INF 10:06
PROVIDERS: PCP Internal Medicine Adolescent Medicine; Visit Provider Nurse Practitioner
DX: M81.0 Age-related osteoporosis without current pathological fracture (principal)
CPT/HCPCS: 96372; J0897

== ENCOUNTER 2023-10-04 14:58 | Outpatient (CLI) | payer MEDICARE, SELFPAY ==
--- NOTE | 2023-10-04 15:02 | MM_ITS ---
PROCEDURE INFORMATION: Exam: MG Bilateral Screening 3D Mammography Exam date and time: 10/04/2023 2:51 PM Age: 72 years old Clinical indication: Screening examination TECHNIQUE: Imaging protocol: Bilateral Screening tomosynthesis and 2D mammography including computer-aided detection (CAD) when performed. COMPARISON: 1. MG MM DIG MAMM DX UNILAT LT CAD 06/24/2022 1:58 PM 2. MG MM DIG SCREENING MAMM BI W/CAD 05/28/2022 10:19 AM FINDINGS: MAMMOGRAPHY: Breast composition: The breasts are heterogeneously dense, which may obscure small masses. Mass: None. Architectural distortion: None. Calcifications: No suspicious calcifications. Asymmetric density: None. Skin thickening: None. Axillary adenopathy: None. IMPRESSION: No mammographic evidence of malignancy. Annual screening is recommended unless otherwise clinically indicated. ASSESSMENT: BI-RADS Category 1: Negative
== END 2023-10-04 23:59 | disposition home or self-care (01) ==
LOC: RAD 14:59
PROVIDERS: PCP Nurse Practitioner Family; Visit Provider Nurse Practitioner Family
DX: Z12.31 Encounter for screening mammogram for malignant neoplasm of breast (principal)
CPT/HCPCS: 77063; 77067

== ENCOUNTER 2023-12-21 12:56 | Outpatient (CLI) | payer MEDICARE, SELFPAY ==
--- NOTE | 2023-12-21 13:00 | CA_ITS ---
APPROVED REPORT EXAM: Comprehensive 2D, Doppler, and color-flow Echocardiogram [employer]: Lita Germain RVT Ht: 5 ft 3 in Wt: 180lbs BSA: 1.85 BP: 149/74 mmHg Indications: ABN EKG,ABLATION,A-FIB,HTN,SOA 2D Dimensions IVSd 0.96 cm F: 0.6-1.0 LVEF (Visual) 67.90 % PWd 1.03 cm F: 0.6 - 1.0 LA Volume 96.90 mL LVDd 4.66 cm F: 3.9 - 5.3 LA Volume Index 52.38 mL/m2 (M/F) 16-34 LVDs 2.90 cm F: 2.2 - 3.5 M-Mode Dimensions LA Diam 4.72 cm (1.9-4.0) TAPSE 2.26 (<1.7) Aortic Valve CHRIS Index 1.52 cm2/m2 AoV Peak Benjy. 90.0 (50-130 cm/s) AO Peak GR. 3.30 mmHg AO Mean GR. 2.10 (<5 mmHg) AO VTI 16.6 (18-25 cm) CHRIS (VTI) 2.88 (2.5-4.5 cm2) Pulmonary Valve PV Peak Velocity 62.0 (50-150 cm/s) Left Ventricle The left ventricle is normal size. The left ventricular systolic function is normal. There is increased overall thickness. There is normal LV segmental wall motion. The left ventricular diastolic function is normal. LVEF is 55%. Right Ventricle The right ventricle is normal size. The right ventricular systolic function is normal. Atria Left atrium is moderately dilated. The right atrium is mildly dilated. The interatrial septum is not well-visualized. Aortic Valve Aortic valve is mildly thickened. There is no aortic valvular stenosis. Trace aortic regurgitation. Mitral Valve The mitral valve is normal in structure. No evidence of mitral valve stenosis. Mild mitral regurgitation. Tricuspid Valve The tricuspid valve leaflets are thin and viable. Trace tricuspid regurgitation. There is insufficient TR jet estimate RVSP. Pulmonic Valve The pulmonary valve is normal in structure. Trace pulmonic regurgitation. Great Vessels The aortic root is normal in size. The ascending aorta is not well-visualized. IVC is normal in size and collapses >50% with inspiration. Pericardium There is no pericardial effusion. Other Information Study Quality: Fair Conclusion Normal biventricular systolic function. Moderately dilated LA, mildly dilated RA. Mild MR. Electronically signed by : Tita Girard MD 12/22/2023 15:05:37
== END 2023-12-21 23:59 | disposition home or self-care (01) ==
LOC: RT 12:57
PROVIDERS: PCP Nurse Practitioner Family; Visit Provider Internal Medicine
DX: R94.31 Abnormal electrocardiogram [ECG] [EKG] (principal); R00.0 Tachycardia, unspecified; I48.91 Unspecified atrial fibrillation; I10 Essential (primary) hypertension
CPT/HCPCS: 93306

== ENCOUNTER 2024-02-13 10:44 | Emergency (ER) | payer MEDICARE, SELFPAY ==
--- NOTE | 2024-02-13 11:01 | XR_ITS ---
PROCEDURE INFORMATION: Exam: XR Left Knee Exam date and time: 02/13/2024 11:49 AM Age: 73 years old Clinical indication: Pain; Knee; Left TECHNIQUE: Imaging protocol: Radiologic exam of the left knee. Views: 3 views. COMPARISON: No relevant prior studies available. FINDINGS: Bones/joints: There is no evidence for acute fracture or dislocation. Overall bony mineralization is within normal limits. There is mild medial and patellofemoral compartment narrowing and osteophytosis. Soft tissues: Normal. IMPRESSION: Degenerative change, left knee.
[2024-02-13 11:15] VITALS: BP 144/95; PULSE 115; RESP 18; TEMP 37; O2SAT 97; BMI 30.2
--- NOTE | 2024-02-13 11:33 | EXP.UTC ---
Discharge Plan Disposition Patient Disposition: Home, Self-Care Condition: Good Prescriptions Prescriptions: No Action Prolia 60 mg/mL syringe 60 mg SQ [id number] melatonin-pyridoxine (vit B6) 5-1 mg tablet 1 tab PO HS PRN (Reason: Sleep) metoprolol succinate [Toprol XL] 50 mg tablet extended release 24 hr 50 mg PO DAILY cholecalciferol (vitamin D3) 50 mcg (2,000 unit) capsule 50 mcg PO DAILY mecobalamin (vitamin B12) 1,000 mcg tablet,chewable 1,000 mcg PO DAILY aspirin 81 MG tablet,delayed release (DR/EC) 81 mg PO DAILY duloxetine 60 mg capsule,delayed release(DR/EC) 60 mg PO BID bupropion HCl [Wellbutrin XL] 150 mg Tablet Extended Release 24 Hr 150 mg PO DAILY Xarelto 20 mg tablet 20 mg PO DAILY Qty: 30 0RF Rx Instructions: must administer with evening meal lansoprazole 15 mg Capsule,Delayed Release(Dr/Ec) 15 mg PO DAILY Referrals Follow up/Referrals: Danuta Dukes APRN [Primary Care Provider] - See instructions Activity Restrictions/Add. Instructions Additional Instructions/Restrictions: *RICE, Rest the extremity, Ice 15-20 minutes 3-4 times daily, Compress- wear the randolph wrap as discussed as much as possible to help reduce swelling and pain, Elevate the extremity when at rest *Randolph wrap is for support and help control swelling, use it except in the shower. Be sure that is not to tight but not to loose either *Elevate when resting? *Ibuprofen 600-800mg every 6-8 hours as needed for pain an inflammation if you can take it. If need something more can take Tylenol in between doses of Ibuprofen to help Immediately follow up with your family doctor for new or worsening of symptoms, or no noticeable improvement over the next 3-5 days Clinical Impressions Clinical Impression: Contusion of left leg Instructions Patient Instructions: DI for Contusion, How To Perform RICE (Rest, Ice, Compress, Elevate) Print Language Print Language: [place] Discharge ED Provider: Esther Rodriguez [facility] HPI General Stated complaint: swollen ankle knot on leg Mode of Arrival: Ambulatory Source of Information: Patient Limitations: No Limitations Time Seen by Provider: 02/13/24 11:20 Description of Symptoms (Recalled from Triage Doc. by RN): PATIENT C/O KNOT TO LEFT LEG THAT POPPED UP AFTER SHE FELL 10 DAYS AGO HEENT Symptoms (Recalled from RN notes): No Resp Symptoms (Recalled from RN notes): No Skin Symptoms (Recalled from RN notes): No MS Symptoms (Recalled from RN notes): Yes Functional Status (Recalled from RN notes): WNL History of Present Illness Provider Complaint: Patient states that she fell last week and hit her left lower leg States she has had some bruising and swelling to her lower leg and noticed a knot like area just to the side of her wilson area States she also hit her knee and has had a little pain there too States area is bruised and tender and she wanted to come and get checked out to make sure she didnt break anything Related Data Home Medications ?Medication ?Instructions ?Recorded ?Confirmed aspirin 81 mg tablet,delayed 81 mg PO DAILY Heart Health 03/27/20 02/13/24 release bupropion HCl 150 mg 24 hr tablet, 150 mg PO DAILY . 01/05/23 02/13/24 extended release (Wellbutrin XL) duloxetine 60 mg capsule,delayed 60 mg PO BID Mood 01/05/23 02/13/24 release denosumab 60 mg/mL subcutaneous 60 mg SQ [id number] 02/01/23 02/13/24 syringe (Prolia) melatonin 5 mg-pyridoxine (vitamin 1 tab PO HS PRN Sleep 06/23/23 02/13/24 B6) 1 mg tablet metoprolol succinate 50 mg 50 mg PO DAILY 06/23/23 02/13/24 tablet,extended release 24 hr (Toprol XL) cholecalciferol (vitamin D3) 50 50 mcg PO DAILY 12/13/23 02/13/24 mcg (2,000 unit) capsule mecobalamin (vitamin B12) 1,000 1,000 mcg PO DAILY 12/13/23 02/13/24 mcg chewable tablet lansoprazole 15 mg capsule,delayed 15 mg PO DAILY 02/13/24 02/13/24 release Previous Rx's ?Medication ?Instructions ?Recorded rivaroxaban 20 mg tablet (Xarelto) 20 mg PO DAILY #30 tabs 01/07/23 Allergies Allergy/AdvReac Type Severity Reaction Status Date / Time No Known Allergies Allergy Verified 12/13/23 14:24 Worker's Comp Is this a Worker's Comp case?: [facility] Dis[facility]: The information contained in this section may have been updated after the patient was seen, as this information can be updated by other users. 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 Diverticulosis Osteoarthritis Knee fracture GERD (gastroesophageal reflux disease) Migraines Anxiety and depression HTN (hypertension) Surgical History History of colonoscopy H/O esophagogastroduodenoscopy History of repair of rotator cuff Family History Other Family history of cancer Social History Smoking Status: Never smoker second hand exposure: No alcohol intake: never substance use type: denies use current occupational status: retired Travel in the last 8 weeks: None household members: spouse housing: house current occupational exposures/hazards: No caffeine: Yes ROS Obtained: Yes All systems reviewed & no additional complaints except as documented and Yes Systems reviewed as appropriate & no additional complaints except as documented Constitutional Constitutional: Reports system reviewed and no additional complaints, except as documented and Reports as per HPI Cardiovascular Cardiovascular: Reports system reviewed and no additional complaints, except as documented and Reports as per HPI Respiratory Respiratory: Reports system reviewed and no additional complaints, except as documented and Reports as per HPI Gastrointestinal Gastrointestingal: Reports system reviewed and no additional complaints, except as documented and as per HPI Integumentary/Breasts Skin/Breast: Reports system reviewed and no additional complaints, except as documented and Reports as per HPI Comments: Bruising and swollen area on the front of her left lower leg after hitting it when she fell about 7-10 days ago Physical Exam General General appearance: alert and in no apparent distress Respiratory Respiratory exam: Present normal lung sounds bilaterally; Absent respiratory distress or wheezes Cardiovascular Cardiovascular exam: Present regular rate, normal rhythm and normal heart sounds Expanded Lower Extremity Exam Left: Leg image: 1. raised area noted appears like hematoma with multicolored bruising noted no swelling but tenderness to the touch, no temperature difference and + pedal pulse noted Lower leg exam: Present swelling, abrasion (small) and ecchymosis Ankle exam: Present normal inspection Foot/toe exam: Present normal inspection Gait: observed and normal Neurological Exam Neurological exam: Present alert, oriented X3 and normal gait Medical Decision Making Medical Records Screening: Per USPSTF and CDC recommendations, given the prevalence of disease in our region, it is our hospital?s policy to screen for HIV and viral Hepatitis for all patients aged 18 and over and those with ongoing risk factors. Huey Inquiry Pt receiving controlled substance: No Huey was queried for this patient: No Vital Signs: 02/13/24 11:15 Temperature 98.6 F Temperature Source Oral Pulse Rate [Left Brachial] 115 H Respiratory Rate 18 Blood Pressure [Left Arm] 144/95 H Blood Pressure Mean [Left Arm] 111 Blood Pressure Source [Left Arm] Automatic Cuff Blood Pressure Position [Left Arm] Sitting 02 Sat by Pulse Oximetry 97 Oxygen Delivery Method Room Air Orders (Tests/Meds): ORDERS Category Date Time Status Knee XR left 3 views [XR knee LT 3V] Stat Exams 02/13/24 11:01 Ordered Radiology Data #1: Image(s): Tib/Fib Image Reviewed: Yes I have reviewed radiologist's interpretation IMPRESSION: No acute process in the left tibia and fibula. #2: Image(s): Knee Image Reviewed: Yes I have reviewed radiologist's interpretation IMPRESSION: Degenerative change, left knee.
--- NOTE | 2024-02-13 12:05 | XR_ITS ---
PROCEDURE INFORMATION: Exam: XR Left Tibia and Fibula Exam date and time: 02/13/2024 11:55 AM Age: 73 years old Clinical indication: Injury or trauma; Fall; Blunt trauma; Lower leg; Left; Additional info: Fell TECHNIQUE: Imaging protocol: Radiologic exam of the left tibia and fibula. Views: 2 views. COMPARISON: CR Knee L 02/13/2024 11:49 AM FINDINGS: Bones/joints: There is no evidence for acute fracture or dislocation. Overall bony mineralization is within normal limits. There is mild degenerative change about the knee. Soft tissues: Normal. IMPRESSION: No acute process in the left tibia and fibula.
[2024-02-13 13:00] VITALS: BP 144/95; PULSE 115; RESP 18; TEMP 37; O2SAT 97
== END 2024-02-13 13:03 | disposition home or self-care (01) ==
PROVIDERS: Emergency Provider Nurse Practitioner; PCP Nurse Practitioner Family
DX: M79.662 Pain in left lower leg (principal); S80.12XA Contusion of left lower leg, initial encounter; W19.XXXA Unspecified fall, initial encounter
CPT/HCPCS: 73562; 73590; 99203; 99212; G0463

== ENCOUNTER 2024-03-24 09:54 | Outpatient (CLI) | payer MEDICARE, SELFPAY ==
[2024-03-24 10:00] VITALS: BP 141/88; PULSE 100; RESP 18; O2SAT 99
[2024-03-24] MEDS: DENOSUMAB 60 MG/ML SYRINGE SUBCUT (10:06)
== END 2024-03-24 10:10 | disposition home or self-care (01) ==
LOC: INF 09:54
PROVIDERS: PCP Internal Medicine Adolescent Medicine; Visit Provider Nurse Practitioner
DX: M81.0 Age-related osteoporosis without current pathological fracture (principal)
CPT/HCPCS: 96372; J0897

== ENCOUNTER 2024-08-14 13:56 | Outpatient (CLI) | payer MEDICARE, SELFPAY | END 2024-08-14 23:59 | disposition home or self-care (01) | LOC: RT 13:57 | PROVIDERS: PCP Internal Medicine Adolescent Medicine; Visit Provider Internal Medicine | DX: R00.0 Tachycardia, unspecified (principal); I48.0 Paroxysmal atrial fibrillation | CPT/HCPCS: 93270 ==

== ENCOUNTER 2024-12-29 12:03 | Outpatient (CLI) | payer MEDICARE, SELFPAY ==
--- OUTSIDE RECORDS SUMMARY | 2024-08-19 17:30 | XMS_ITS ---
Author Organization [facility] Address [address] [facility] [address] [place] [address] Care Team Providers Care Compound Machine Operator Name Role Phone Danuta Dukes Primary Care Provider [phone] Migration, Provider Unavailable Unavailable REASON FOR VISIT [facility] To [facility] Conversion Encounter Medications Medication SIG (Take, Route, [...] review and [facility]. If intended option is not [...] Active Encounters Encounter Location Date Provider Diagnosis [facility] [address] [place] [address] 08/19/2024 Provider Migration Plan Of Treatment No Information Progress Notes * Esther CHINCHILLADOB: 1 (74 yo F)Acc No.[id number]:08/19/2024 Patient: Esther BRITT Provider: Mignon alva Migration :1950 A ge:73 Y S ex:Female Date:08/19/2024 Address:[address] [place] [address] [id number] Pcp:Danuta Dukes Subjective: * Chief Complaints: * 1 . [facility] En[facility]. * Medical History: * Medications: [...] *Please review and pick [facility] If intended option is not [...] Electronic signature of Prov ider Migration on 12/29/2024 at 12:11 PM EDT Sign off status: Pending * Provider: Mignon alva Migration Date: 0 08/19/2024 Generated for Soo johnson/Rich/Jarvis on: 0 12/29/2024 12:11 PM EDT
--- OUTSIDE RECORDS SUMMARY | 2024-11-08 06:45 | XMS_ITS ---
Author Organization [facility] Address [address] [facility] [address] [facility] [address] [place] [address] Care Team Providers Care Tow Truck Dispatcher Name Role Phone Danuta Dukes Primary Care Provider [phone] Allergies No Known Allergies REASON FOR VISIT Ear Wax Removal, lotion to put under breast and on feet Medications Medication SIG (Take, Route, Frequency, Duration) Notes Start Date End Date Status Xarelto 20 MG TAKE 1 TABLET DAILY Active Metoprolol Succinate ER 50 MG 1 tab(s) orally once a day; Duration: 90 days Active Cymbalta 60 MG 2 caps orally once a day; Duration: 90 days Active buPROPion HCl ER (XL) 150 mg TAKE 1 TABLET EVERY 24 HOURS Active SUMAtriptan Succinate 100 MG 1 tab(s) orally as directed for headache; Duration: 90 days Active Co Q-10 100 MG 1 cap(s) orally once a day; Duration: 30 day(s) Active Aspirin 81 MG 1 TAB(S) ORALLY ONCE A DAY; Duration: 30 DAY(S) *Please review and pick correct strength-formulati on from weendyan options. If intended option is not shown, discontinue and re-order from Quick Search* Active Melatonin 5 MG 1 tab(s) orally once a day (at bedtime) Active Vitamin D3 50 MCG (1999) 4 tab(s) orally once daily Active CPAP MACHINE WITH ADULT SETUP *Please review for potential replacement for e-prescription and drug interaction check* Active Magnesium Oxide 400 MG 1 tab(s) orally once a day; Duration: 30 days 08/20/2015 Active Prolia 60 MG/ML as directed Subcutaneous Active B-12 1000 MCG 1 tab(s) orally once a day Active FiberCon 625 MG 1 tab orally once a day Active Lansoprazole 15 MG 1 cap(s) orally once a day; Duration: 30 day(s) Active Vital Signs Temperature 97.9 degrees Fahrenheit 11/09/19 25 Blood pressure systolic 125 mm Hg 11/09/19 Blood pressure diastolic 90 mm Hg 025 Heart Rate 88 /min 11/08/2024 Height 5 ft 4.25 in in 11/08/2024 Weight 177 lbs 11/08/2024 BMI 30.14 kg/m2 11/08/2024 Encounters Encounter Location Date Provider Diagnosis [address] [address] 11/08/2024 Danuta Dukes Impacted cerumen, left ear H61.22 ; Dermatitis L30.9 and Wears hearing aid Z97.4 Assessments Encounter Date Diagnosis (ICD Code) Assessment Notes Treatment Notes Treatment Clinical Notes Section Notes 11/08/2024 Impacted cerumen, left ear (ICD-10 - H61.22) removed with irrigation 11/08/2024 Dermatitis (ICD-10 - L30.9) suggested use of either Vanicream, Eucerin or similar lotion as needed 11/08/2024 Wears hearing aid (ICD-10 - Z97.4) has continued FU with audiology Plan Of Treatment Next Appt Details Follow Up: February, Reason: AWV/Flu shot Progress Notes * Esther CHINCHILLA ChrisDOB: (74 yo F)Acc No.[id number]:11/08/2024 Progress Notes Patient: Esther BRITT Provider: PRATIBHA Henderson :1950 A ge:74 Y S ex:Female Date:11/08/2024 Address:[address] [place], [place] [id number] Subjective: * Chief Complaints: * 1 . Ear Wax Removal. 2. Lotion to put under breast and on feet. * HPI: g en: 74-year-old female with chronic hearing loss, wears hearing aids, presents to have cerumen removed. Has had to have this done previously in order to have her ears reevaluated. Left one seems to be most problematic. No pain. Also interested in some suggestions of what to use beneath her breasts and on her feet for dryness, irritation. No actual rash recently. * ROS: R ESPIRATORY: Reviewed, No Symptoms Reported: Y es. C ARDIOLOGY: no C hest pain. C ONSTITUTIONAL: Reviewed, No Symptoms Reported: Y es. * Medical History: H ormone replacement therapy, osteoporosis with multiple fractures - followed by [facility], Migraine headache, HTN, Depression with anxiety, JOE, diagnosed 05/2016, Colonoscopy [address] Davidson, no polyps, diverticulosis - scope in 03/2020 with two tubular adenomas, Afib. * Surgical History: R t knee surgery 2010, Rotator Cuff Surgery 2012, Heart Cath 2011?, Afib-shocked her heart, EGD? 12/2022, Cardiac Ablation 04/20/23. * Hospitalization/Major Diagno stic Procedure: R t knee surgery 2010, vomitting 2012, vomitting 1973, child 01/05-, H - Afib 12/2022. * Family History: F ather: . M other: . P aternal Grand Father: . P aternal Grand Mother: . M aternal Grand Father: . M aternal Grand Mother: . Maternal uncle: . S iblings: alive, RA. C hildren: alive. 2 sister(s) - healthy. 2 son(s) - healthy. . * Social History: S moking A re you a:: former smoker , How long has it been since you last smoked?: > 10 years. R ecreational drug use: no. Exercise: no. Home smoke detector use: yes. Caffeine: yes, frequency:coffee-5 cups per day. Living Will: No. Alcohol: no. Sexually active: no. Travel outside [place]: no. 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 * Medications: T aking Prolia 60 MG/ML Solution Prefilled Syringe as directed Subcutaneous , Taking B-12 1000 MCG Tablet 1 tab(s) orally once a day , Taking FiberCon 625 MG Tablet 1 [...] *Please review and pick correct strength-formulation from [email or web address] options. If intended option is not shown, discontinue and re-order from Quick Search*, Taking Melatonin 5 MG Capsule 1 tab(s) orally once a day (at bedtime) , Taking Xarelto 20 MG Tablet TAKE 1 TABLET DAILY , Taking Metoprolol Succinate ER 50 MG Tablet Extended Release 24 Hour 1 tab(s) orally once a day , Taking Cymbalta 60 MG Capsule Delayed Release Particles 2 caps orally once a day , Taking buPROPion HCl ER (XL) 150 mg Tablet Extended Release 24 Hour TAKE 1 TABLET EVERY 24 HOURS , Taking SUMAtriptan Succinate 100 MG Tablet 1 tab(s) orally as directed for headache , Medication List reviewed and reconciled with the patient * Allergies: N .K.D.A. Objective: * Vitals: N urse: dw, Pain: 0, Temp: 97.9, RR: 18, HR: 88, BP: 125/90, Ht: 5 ft 4.25 in, Wt: 177, BMI:30.14. * Examination: G eneral Examination: General P leasant and Cooperative, NAD on RA,. Heart: R egular Rate and Rhythm, no murmur, rubs or gallops. HEENT: E AC/TM normal, left EAC with sticky cerumen. Lungs: c lear to auscultation,. Assessment: * Assessment: 1. D ermatitis - L30.9 (Primary) 2 . I mpacted cerumen, left ear - H61.22? 3. W ears hearing aid - Z97.4 Plan: * Treatment: 2. I mpacted cerumen, left ear Clinical Notes: removed with irrigation 3. W ears hearing aid Clinical Notes: has continued FU with audiology * Procedure Codes: 6 9210 EAR IRRIGATION OTIC LAVAGE * Follow Up: O ctober (Reason: AWV/Flu shot) * * Sign off status: Completed true * Provider: PRATIBHA Henderson Date: 11/08/2024 Generated for Soo johnson/Rich/eTcurryitting on: 12/29/2024 12:11 PM EDT History and Physical Notes * Examination Category Sub-Category Detail Notes Category Not es General Examination HEENT: EAC/TM arben l, left EAC with sticky cerumen Heart: Regular Rate and Rhy thm, no murmur, rubs or gallops Lungs: clear to auscultatio n, General Pleasant and Coopera tive, NAD on RA,
[2024-12-29] MEDS: ZOLEDRONIC ACID/MANNITOL-WATER 5 MG/100 ML PGGYBK.BTL 400 MG IV (12:09)
[2024-12-29 12:11] VITALS: BP 125/88; PULSE 88; RESP 18; O2SAT 98
[2024-12-29] MEDS: 0.9 % SODIUM CHLORIDE 50 ML 100 ML IV (12:11)
--- OUTSIDE RECORDS SUMMARY | 2024-12-29 12:11 | XMS_ITS | Clinical Summary ---
[facility] Address [address] [place] [address] Care Team Providers Care Deposit Refund Clerk Name Role Phone Danuta Dukes APRN Primary Care Provid er Social History Tobacco Use Types Packs/Day Years Used Date Smoking Tobacco: Never Assessed Abuse Screen Answer Date Recorded Unsafe at Home or Work/School Not on file Feels Threatened by Someone? Not on file Does Anyone Keep You from Co ntacting Others or Doint Things Outside the Home? Not on file 02/26/2023 Physical Sign of Abuse Present Not on file 1 Housing Stability Answer Date Recorded Current Living Arrangements Not on file 02/14 Potentially Unsafe Housing Conditions Not on jason e 02/26/2023 Family and Community Support Answer Med e Recorded Help with Day-to-Day Activities Not on file 02/26/2023 Lonely or Isolated Not on file 02/26/2023 Employment Answer Date Recorded Do you want help finding or keeping work or a ricco b? Not on file 02/26/2023 Disabilities Answer Date Recorded Concentrating, Remembering, or Making Decisions Difficulty Not on file 02/26/2023 Doing Errands Independently Difficulty Not on fi le 02/26/2023 Education Answer Date Recorded Help with school or training? Not on file Preferred Language Not on file 02/26/2023 Comments Unknown Sex and Gender Information Value Date Recorded Sex Assigned at Not on file Legal Sex Female 3:57 PM EDT Gender Identity Not on file Sexual Orientation Not on file Plan of Treatment Health Maintenance Due Date Last Done Comments DXA SCAN 1950 TDAP/TD VACCINES (1 - Tdap) 1969 MAMMOGRAM 1990 COLOGUARD 10/29/1995 COLON CANCER SCREENING 5 YEAR SIGMOIDOSCOPY 10/29/1995 COLONOSCOPY 10/29/1995 COLORECTAL CANCER SCREENING 10/29/1995 CT COLONOGRAPHY 10/29/1995 FECAL OCCULT BLOOD TEST 10/29/1995 FIT Testing (1 year) 10/29/1995 Pneumococcal Vaccine 50+ (1 of 1 - PCV) 2000 ZOSTER VACCINE (1 of 2) 2000 ANNUAL PHYSICAL 02/04/2023 HEPATITIS C SCREENING 02/04/2023 COVID-19 Vaccine (1 - 2023- season) 2024 INFLUENZA VACCINE 02/14/2025 Insurance [address] [place] [address] [facility] MEDIC[facility] REPLACE Care Teams Deposit Refund Clerk Relationship Specialty Start Date End Date Danuta Dukes APRN [address] [place] [address] PCP - General Family Medicine 02/02/23
--- OUTSIDE RECORDS SUMMARY | 2024-12-29 12:11 | XMS_ITS | Clinical Summary ---
Author Organization [facility] Address [address] [facility] [place] [address] Phone Care Team Providers Care Enterprise Project Manager Name Role Phone Unavailable Primary Care Provider Unavailabl e Allergies No known active allergies Medications aspirin 81 mg Oral Tablet, Delayed Release (E.C.) Take 81 mg by mouth. 03/27/20 20 Active metoprolol succinate (TOPROL-XL) 50 mg Oral Tablet Sustained Release 24 hrIndications:mul tifocal atrial tachycardia Take 50 mg by mouth daily. Indications: multifocal atrial tachycardia, an unusually high heart rate at rest 01/15/20 23 Active rivaroxaban (XARELTO) 20 mg Oral Tablet Take 20 mg by mouth daily. Active buPROPion HCL, smoking deter, 150 mg Oral Tablet Sustained Release 12 hr Take 150 mg by mouth daily. Active Melatonin-Pyridox ine, Vit B6, 5-1 mg Oral Tablet Take 5 mg by mouth daily. 07/18/19 21 Active DULoxetine (CYMBALTA) 60 mg Oral Capsule, Delayed Release(E.C.) Take 2 Capsules by mouth nightly. 07/13/19 13 Active Cholecalciferol, Vitamin D3, 25 mcg (1,000 unit) Oral Capsule Take 4,000 Units by mouth. 03/27/20 20 Active calcium polycarbophiL (FIBERCON) 625 mg Oral Tablet Take 625 mg by mouth daily. Active amiodarone (PACERONE) 200 mg Oral Tablet Take 2 Tablets by mouth 2 times daily for 7 days, THEN Take 1 Tablet by mouth 2 times daily for 7 days, THEN Take 1 Tablet by mouth daily thereafter. 56 Tablet 2 04/20/2023 3:27 PM EST 04/20/20 Active Additional Information Patient not taking.Reason: Other (pt stopped taking), Reported on 09/21/2023 IMITREX 100 mg Oral Tablet Take 100 mg by mouth. 03/27/20 Active lansoprazole (PREVACID) 15 mg Oral Capsule, Delayed Release(E.C.) Take 15 mg by mouth daily. Active Denosumab (PROLIA) 60 mg/mL SubQ Syringe Subcutaneous (Inject under the skin) 60 mg. Active Active Problems Problem Noted Date Diagnosed Date S/P ablation of atrial fibrillation 03/29/2023 Overview (04/20/2023): PVAI ablation by Dr. Ny 04/19/23 Chronic kidney disease, stage 3 unspecified 03/17 Overview (03/26/2023): Documented on 04/06/2022 by WATSON LANGFORD PAF (paroxysmal atrial fibrillation) 03/26/2023 Persistent atrial fibrillation 03/26/2023 Assessment & Plan (04/19/2023 2:53 PM EST): 04/19/23 EPS atrial fibrillation ablation by Dr. Ny DDD (degenerative disc disease), lumbar 07/18/19 Lumbar facet arthropathy 07/17/2020 Essential (primary) hypertension 09/09/2016 Osteoporosis 11/29/2012 Resolved Problems Problem Noted Date Diagnosed Date Resolved Date Paroxysmal atrial fibrillation 04/19/2023 09/21/2023 Immunizations Immunization Administration Dates Next Due Quadrivalent Influenza High Dose 04/20/2023 Surgical History Surgery Date Site/Laterality Comments ORTHOPEDIC SURGERY Knee and rotator cuff ABLATION OF DYSRHYTHMIC FOCUS 04/19/[address] Ny Medical History Medical History Date Comments Hypertension Chronic kidney disease, stag e 3 unspecified ([facility]) 03/26/2023 Documented on 04/06/2022 by WATSON LANGFORD DDD (degenerative disc disea se), lumbar 07/17/2020 Essential (primary) hypertension 09/09/2016 Lumbar facet arthropathy 07/17/2020 Osteoporosis 11/29/2012 PAF (paroxysmal atrial fibri llation) ([facility]) 03/26/2023 Social History Tobacco Use Types Packs/Day Years Used Date Smoking Tobacco: Never Smokeless Tobacco: Never Tobacco Cessation:Counseling Given: Not Answered Alcohol Use Standard Drinks/Week Comments Never 0 (1 standard drink = 0.6 oz pur e alcohol) Overall Financial Resource Strain (CARDIA) Answe r Date Recorded How hard is it for you to pa y for the very basics like food, housing, medical care, and heating? Not hard at all 04/20/2023 PHQ-2 Answer Date Recorded PHQ-2 Total Score 4 04/20/2023 Exercise Vital Sign Answer Date Recorde d On average, how many days pe r week do you engage in moderate to strenuous exercise (like a brisk walk)? 0 days 04/20/2023 On average, how many minutes do you engage in exercise at this level? 0 min 04/20/2023 Hunger Vital Sign Answer Date Recorded Within the past 12 months, y ou worried that your food would run out before you got the money to buy more. Never true 04/20/20 23 Within the past 12 months, t he food you bought just didn't last and you didn't have money to get more. Never true 04/20/2023 PRAPARE - Transportation Answer Date Re corded In the past 12 months, has l ack of transportation kept you from medical appointments or from getting medications? No 09/2022 In the past 12 months, has l ack of transportation kept you from meetings, work, or from getting things needed for daily living? No 04/20/2023 Comments No Sex and Gender Information Value Date Recorded Sex Assigned at Not on file Legal Sex Female 2:42 PM EDT Gender Identity Not on file Sexual Orientation Not on file Obstetrics History Last Filed Vital Signs Vital Sign Reading Time Taken Comments Blood Pressure 128/86 09/21/2023 11:39 AM EDT Pulse 79 09/21/2023 11:39 AM EDT Temperature 36.7 C (98.1 F) 04/20/2023 8:35 AM EST Respiratory Rate 18 04/20/2023 8:35 AM EST Oxygen Saturation 95% 09/21/2023 11:39 AM EDT Inhaled Oxygen Concentration - - Weight 79.8 kg (176 lb) 09/21/2023 11:39 AM EDT Height 161.3 cm (5' 3.5 ) 06/21/2023 10:32 AM ES T Body Mass Index 30.69 06/21/2023 10:32 AM EST Plan of Treatment Health Maintenance Due Date Last Done Comments Wellness Exam Medicare 1953 Hepatitis C Screening 1968 Breast Cancer Screening 1990 Cologuard 10/29/1995 Colon Cancer Screening 10/29/1995 Colonoscopy 10/29/1995 FIT 10/29/1995 Sigmoidoscopy 10/29/1995 Virtual Colonography 10/29/1995 DTaP/TDaP/Td (1 - Tdap) 07/19/1996 07/18/1996 Zoster (1 of 2) 2000 RSV or 60+ (1 - Risk 60-74 years 1-dose series) 2010 Bone Density Screening 10/29/2015 COVID-19 Vaccine ( season) 2024 01/28/2022, 08/19/2021, 01/15/2021, Additional history exists Influenza Vaccine (#1) 2025 , 04/07/2022, 03/25/2021, Additional history exists Pneumococcal Vaccine 50+ Completed 09/20/2023, 05/2017 Hepatitis B Vaccine Aged Out No longe r eligible based on patient's age to complete this topic Meningococcal B Vaccine Aged Out No l onger eligible based on patient's age to complete this topic Insurance MEDICARE PPO MR Advance Directives For more information, please contact: [phone] * Full Code (Latest Code Status on File) Date Activated Date Inactivated Comments 04/19/2023 4:14 PM 04/20/2023 9:19 PM
--- OUTSIDE RECORDS SUMMARY | 2024-12-29 12:11 | XMS_ITS | Patient Health Record ---
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 Name Role Phone Danuta Dukes Primary Care Provider Migration, Provider Unavailable Unavailable Allergies No Known Allergies Medications Medication SIG (Take, Route, Frequency, Duration) Notes Start Date End Date Status Magnesium Oxide 400 MG 1 tab(s) orally once a day; Duration: 30 days 08/20/2015 Active Vitamin D3 50 MCG (1999) 4 tab(s) orally once daily Active CPAP MACHINE WITH ADULT SETUP *Please review for potential replacement for e-prescription and drug interaction check* Active Prolia 60 MG/ML as directed Subcutaneous Active Metoprolol Succinate ER 50 MG 1 tab(s) orally once a day; Duration: 90 days Active B-12 1000 MCG 1 tab(s) orally once a day Active FiberCon 625 MG 1 tab orally once a day Active buPROPion HCl ER (XL) 150 mg TAKE 1 TABLET EVERY 24 HOURS Active Lansoprazole 15 MG 1 cap(s) orally once a day; Duration: 30 day(s) Active SUMAtriptan Succinate 100 MG 1 tab(s) orally as directed for headache; Duration: 90 days Active Co Q-10 100 MG 1 cap(s) orally once a day; Duration: 30 day(s) Active Aspirin 81 MG 1 TAB(S) ORALLY ONCE A DAY; Duration: 30 DAY(S) *Please review and pick correct strength-formulati on from Medispan options. If intended option is not shown, discontinue and re-order from Quick Search* Active Melatonin 5 MG 1 tab(s) orally once a day (at bedtime) Active Xarelto 20 MG TAKE 1 TABLET DAILY Active Cymbalta 60 MG 2 caps orally once a day; Duration: 90 days Active Immunizations Vaccine Route Administration Date Status Comme nts Td Adult Unknown 07/18/1996 Administered Prevnar PCV-20 (Pneumococcal conjugate 20) IM Intramuscular 09/20/2023 Administered Prevnar PCV-13 (Pneumococcal conjugate 13) IM Intramuscular 02/14/2018 Administered Fluzone High Dose IM Intramuscular 02/14/2018 Administered Fluzone High Dose Unknown 04/04/2019 Administered FLUZONE 6MO - OLDER Unknown 04/07/2022 Administered Fluvirin--Influenza vaccine 3+ year IM Intramuscular 02/22/2012 Administered Adacel (Tdap) IM Intramuscular 08/29/2014 Administered Problems Problem Type SNOMED Code ICD Code Onset Dates Problem Status W/U Status Risk Notes Problem Hyperlipidemia (83533777) Hyperlipidemia, unspecified (E78.5) Active confirmed Low Problem Atrial fibrillation (97585644) Unspecified atrial fibrillation (I48.91) Active confirmed Problem Cellulitis of left upper limb (19595850231495922 ) Cellulitis of left upper limb (L03.114) Active confirmed Problem Snoring (16129929) Snoring (R06.83) Active conf irmed Problem Abnormal findings on diagnostic imaging of breast (675657279) Other abnormal and inconclusive findings on diagnostic imaging of breast (R92.8) Active confirmed Problem Mixed anxiety and depressive disorder (905200475) Depression with anxiety (F41.8) Active confirmed Problem Vitamin D deficiency (66069959) Vitamin D deficiency (E55.9) Active confirmed Problem Osteoporosis (63067952) Osteoporosis (M81.0) Active confirmed Problem Microscopic hematuria (363278267) Microscopic hematuria (R31.2) Active confirmed Problem Idiopathic peripheral neuropathy (72206616) Idiopathic peripheral neuropathy (G60.9) Active confirmed Problem Palpitations (07793917) Palpitation (R00.2) Active confirmed Problem Migraine (76739558) Migraine (G43.909) Active confirmed Problem Obesity (219421166) Obesity (BMI 30-39.9) (E66.9) Active confirmed Problem Body mass index 30+ - obesity (643602407) BMI 30.0-30.9,adult (Z68.30) Active confirmed Problem Generalized aches and pains (81594410) Body aches (R52) Active confirmed Problem Skin sensation disturbance (90938087) Paresthesia of both feet (R20.2) Active confirmed Problem Obstructive sleep apnea syndrome (87775614) JOE (obstructive sleep apnea) (G47.33) Active confirmed Problem Atrial fibrillation (46439150) Atrial fibrillation, unspecified type (I48.91) Active confirmed Problem BMI 25-29 - overweight (693958676) BMI 29.0-29.9,adult (Z68.29) Active confirmed Problem Essential hypertension (76507164) Essential hypertension with goal blood pressure less than 140\/90 (I10) Active confirmed Problem Chronic constipation (267004644) Chronic constipation (K59.09) Active confirmed Problem Serum vitamin B12 low (788752594) Low vitamin B12 level (E53.8) Active confirmed Problem Retinal vein occlusion (5296664274) Retinal vein occlusion (H34.9) Active confirmed Problem Atrial fibrillation (78803065) Atrial fibrillation with RVR (I48.91) Active confirmed Problem Localized, primary osteoarthritis of the hand (479863753) Hand arthritis (M19.049) Active confirmed Problem Mitral valve disorder (87065754) Mitral valve insufficiency, unspecified etiology (I34.0) Active confirmed Problem Atrial fibrillation (76315097) PAF (paroxysmal atrial fibrillation) (I48.0) Active confirmed Problem Lumbar spondylosis (432672462) Lumbar spondylosis (M47.816) Active confirmed Problem Diastolic dysfunction (1472114) Diastolic dysfunction (I51.89) Active confirmed Problem Cardiomegaly (3221735) Atrial enlargement, left (I51.7) Active confirmed Vital Signs Heart Rate 88 /min 11/08/2024 Temperature 97.9 degrees Fahrenheit 11/08/2024 Blood pressure diastolic 90 mm Hg 11/08/2024 Height 5 ft 4.25 in in 11/08/2024 Blood pressure systolic 125 mm Hg 11/08/2024 Weight 177 lbs 11/08/2024 BMI 30.14 kg/m2 11/08/2024 Encounters Encounter Location Date Provider Diagnosis [facility] [address] [place], [place] [address] 08/19/2024 Provider Migration [facility] [address] [facility] [address] [place], [place] [address] 08/17/2024 Danuta Dukes Essential hypertension with goal blood pressure less than 140\/90 I10 ; Osteoporosis M81.0 ; Depression with anxiety F41.8 ; JOE (obstructive sleep apnea) G47.33 ; PAF (paroxysmal atrial fibrillation) I48.0 and Hand arthritis M19.049 [facility] [address] [address] 11/08/2024 Danuta Dukes Impacted cerumen, left ear H61.22 ; Dermatitis L30.9 and Wears hearing aid Z97.4 [facility] [address] [facility] [address] [place], [place] [address] 01/01/2024 Danuta Dukes [facility] [address] [facility] [address] [place], [place] [address] 08/03/2024 Danuta Dukes [facility] [address] [address] 09/15/2024 Danuta Dukes Assessments Encounter Date Diagnosis (ICD Code) Assessment Notes Treatment Notes Treatment Clinical Notes Section Notes 08/17/2024 Osteoporosis (ICD-10 - M81.0) Dr Sullivan managing 08/17/2024 Essential hypertension with goal blood pressure less than 140\/90 (ICD-10 - I10) cardiology following 11/08/2024 Impacted cerumen, left ear (ICD-10 - H61.22) removed with irrigation 11/08/2024 Dermatitis (ICD-10 - L30.9) suggested use of either Vanicream, Eucerin or similar lotion as needed 11/08/2024 Wears hearing aid (ICD-10 - Z97.4) has continued FU with audiology 08/17/2024 Depression with anxiety (ICD-10 - F41.8) continue current regimen, well controlled 08/17/2024 JOE (obstructive sleep apnea) (ICD-10 - G47.33) continue use of PAP during sleep 08/17/2024 PAF (paroxysmal atrial fibrillation) (ICD-10 - I48.0) improved s/p ablation, cardiology following 08/17/2024 Hand arthritis (ICD-10 - M19.049) tylenol as needed 08/17/2024 Other labs due next visit and/or when she has her annual FU with Dr Sullivan this year Plan Of Treatment Pending Test Test Name Order Date MRI : Head, Without Contrast 02/05/2020 Holter Monitor, 24 Hour 06/10/2011 Physical Therapy 06/14/2019 Physical Therapy 02/23/2019 Physical Therapy 12/18/2013 Physical Therapy 09/18/2011 Mammogram : Bilateral 09/28/2016 H-CBC with AUTO DIFF 06/10/2011 H-CBC with AUTO DIFF 08/29/2014 H-BMP 09/10/2010 H-CMP 06/10/2011 H-CMP 04/30/2016 H-CMP 08/29/2014 H-LIPID PANEL 08/29/2014 H-LIPID PANEL 04/30/2016 H-LIPID PANEL 06/10/2011 H-TSH 06/10/2011 H-VIT D, 25-HYDROXY 08/29/2014 H-VIT D, 25-HYDROXY 06/10/2011 H-VIT D, 25-HYDROXY 09/10/2010 M-Complete Blood Count Auto Diff 022 M-Comprehensive Metabolic Panel 04/30/20 22 M-Comprehensive Metabolic Panel 02/15/20 18 M-Lipid Panel 02/14/2018 M-Lipid Panel 04/30/2022 M-Vitamin B12 04/30/2022 M-Vitamin D 25 Hydroxy 12/25/2019 M-Methylmalonic Acid 12/25/2019 Insurance Providers Payer Name Payer Address Payer Phone Subscriber Number Group Number Insured Name Patient Relationship to Insured Coverage Start Date Coverage End Date [employer] [address] [address] [place] [address] [id number] Esther Sanchez Self - patient is the insured Medical (General) History Medical History History ICD Code hormone replacement therapy osteoporosis with multiple fractures - f ollowed by [facility] migraine headache HTN Depression with anxiety JOE, diagnosed 05/2016 [address] Davidson, no polyps, diverticulosis - scope in 03/2020 with two tubular adenomas Afib Surgical History Surgery Date(Month/Year) Rt knee surgery 2010 Rotator Cuff Surgery 2013 Heart Cath 2011? Afib-shocked her heart, EGD? 12/2022 Cardiac Ablation 04/20/23 Hospitalization History Reason Date(Month/Year) [facility] - Afib 12/2022 child 01/05- vomitting 1974 vomitting 2012 Rt knee surgery 2010
--- OUTSIDE RECORDS SUMMARY | 2024-12-29 12:11 | XMS_ITS | Clinical Summary ---
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 3 Active buPROPion SR (Wellbutrin SR) 150 MG 12 hr tablet TAKE 1 TABLET DAILY. 0 Active cholecalciferol (Vitamin D-3) 50 MCG (2000 UT) tablet Take 1 tablet daily 3 Active Cobalamin Combinations (B-12) 100-5000 MCG sublingual tablet 1 Active coenzyme Q-10 200 MG capsule 9 Active DULoxetine (Cymbalta) [address] capsule TAKE 2 CAPSULES AT BEDTIME. 3 Active Melatonin 5 MG tablet tablet 1 Active polycarbophil (Fibercon) 625 MG tablet Take by mouth 1 (one) time each day. Active denosumab (Prolia) 60 MG/ML injectionIndicati ons:Age-related osteoporosis without current pathological fracture Inject 1 mL (60 mg total) under the skin 1 (one) time for 1 dose. 1 mL 1 1 Active metoprolol succinate XL (Toprol-XL) 50 MG 24 hr tablet Take 1 tablet (50 mg) by mouth 1 (one) time each day. 3 Active pantoprazole (Protonix) 40 MG EC tablet Take 1 tablet (40 mg) by mouth 1 (one) time each day. 3 Active amiodarone (Pacerone) 200 MG tablet Take 2 Tablets by mouth 2 times daily for 7 days, THEN Take 1 Tablet by mouth 2 times daily for 7 days, THEN Take 1 Tablet by mouth daily thereafter. 3 Active Active Problems Problem Noted Date Diagnosed Date DDD (degenerative disc disease), lumbar 07/18/19 21 Fracture of lumbar spine 07/17/2020 Lumbar facet arthropathy 07/17/2020 Essential (primary) hypertension 09/09/2016 Osteoporosis 11/29/2012 Immunizations Immunization Administration Dates Next Due Influenza, Unspecified 02/23/2020 Influenza, high-dose, quadrivalent 04/04/2019, Influenza, injectable, quadrivalent, preservativ e free 04/07/2022,03/25/2021 SurroundsMe COVID-19 Biv alent (Shook Cap) 12+ years (angelina-sucrose) 01/28/2022 Pneumococcal Conjugate PCV 13 02/14/2018 TD (adult), 2 Lf tetanus tox oid, preservative free, adsorbed 07/18/1996 Social History Tobacco Use Types Packs/Day Years Used Date Smoking Tobacco: Former Smokeless Tobacco: Never Tobacco Cessation:Counseling Given: Not Answered Alcohol Use Standard Drinks/Week Comments Yes 0 (1 standard drink = 0.6 oz pur e alcohol) PHQ-2 Answer Date Recorded Patient Health Questionnaire-2 Score 0 08/31/2023 Comments Unknown Sex and Gender Information Value Date Recorded Sex Assigned at Not on file Legal Sex Female 6:51 PM EDT Gender Identity Not on file Sexual Orientation Not on file Last Filed Vital Signs Vital Sign Reading Time Taken Comments Blood Pressure 141/92 08/31/2023 1:46 PM EDT Pulse 92 08/31/2023 1:46 PM EDT Temperature - - Respiratory Rate 16 08/31/2023 1:46 PM EDT Oxygen Saturation 98% 08/31/2023 1:46 PM EDT Inhaled Oxygen Concentration - - Weight 80.8 kg (178 lb 3.2 oz) 08/31/2023 1:46 P M EDT Height 160 cm (5' 3 ) 07/17/2020 9:08 AM EST Body Mass Index 31.57 07/17/2020 9:08 AM EST Plan of Treatment Health Maintenance Due Date Last Done Comments [facility]-Bone Density Scan 1950 [facility]-Hepatitis C Screening 1950 [facility]-Medicare Annual Wellness (AWV) 1950 [facility]-/Child/Adol SDOH Screenings 1950 [facility]- SDOH Screenings 1968 [facility]-Adult SDOH Screenings 1968 CT Colonography 10/29/1995 Colonoscopy 10/29/1995 FIT-DNA 10/29/1995 FIT 10/29/1995 FOBT 10/29/1995 Sigmoidoscopy 10/29/1995 [facility]-Colorectal Cancer Screening 10/29/1995 [facility]-DTaP,Tdap,and Td Vaccines (1 - Tdap) 07/19/1996 07/18/1996 [facility]-Breast Cancer Screening 2000 [facility]-Zoster Vaccines (1 of 2) 2000 [facility]-Pneumococcal Vaccine: 50+ Years (2 of 2 - PPSV23) 02/14/2019 02/14/2018 [id number] Vaccine (2023- season) 2024 01/28/2022, 08/19/2021, 01/15/2021, Additional history exists [facility]-Depression Screening 08/30/2024 08/31/2023 [facility]-Influenza Vaccine (#1) 01/15/202504/20, 04/07/2022, 03/25/2021, Additional history exists [facility]-RSV Vaccine: 60+ Years or (1 - 1-dose 75+ series) 2025 [facility]-Obesity Intervention Completed 08/31/2023 HPV Vaccines Aged Out No longer eligi ble based on patient's age to complete this topic [facility]-HIB Vaccines Aged Out No longer e ligible based on patient's age to complete this topic [facility]-Hepatitis A Vaccines Aged Out No longer eligible based on patient's age to complete this topic [facility]-IPV Vaccines Aged Out No longer e ligible based on patient's age to complete this topic [facility]-Rotavirus Vaccines Aged Out No lo nger eligible based on patient's age to complete this topic Insurance [employer] 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
[2024-12-29 12:34] VITALS: BP 129/79; PULSE 86; RESP 18; O2SAT 98
== END 2024-12-29 12:34 | disposition home or self-care (01) ==
LOC: INF 12:04
PROVIDERS: PCP Nurse Practitioner Family; Visit Provider Nurse Practitioner Family
DX: M81.0 Age-related osteoporosis without current pathological fracture (principal)
CPT/HCPCS: 96374; J3489

== ENCOUNTER 2025-03-19 13:31 | Outpatient (CLI) | payer MEDICARE, SELFPAY ==
--- NOTE | 2025-03-19 13:35 | XR_ITS ---
FINAL REPORT CLINICAL HISTORY: ARTHRITIS FINDINGS: LEFT HAND Three views demonstrate no acute fracture or dislocation. There is multijoint degenerative disease most pronounced at the first carpometacarpal joint and DIP joint of the third digit. There is juxta articular osteopenia. Soft tissue edema is seen of the PIP joint of the fourth and DIP joint of the third digits. There is overlying jewelry which obscures portions of the osseous structures. IMPRESSION: Degenerative changes without acute bony abnormality. Reviewed, Interpreted and Dictated by Joanna Winters MD Transcribed by Che Middleton Authenticated and [facility]
--- NOTE | 2025-03-19 13:35 | XR_ITS ---
FINAL REPORT CLINICAL HISTORY: arthritis FINDINGS: RIGHT HAND Three views demonstrate no acute fracture or dislocation. There is mild degenerative joint disease, most pronounced at the fourth PIP joint. There is juxta articular osteopenia. Soft tissue edema is seen of the fourth digit. IMPRESSION: Degenerative changes without acute bony abnormality. Reviewed, Interpreted and Dictated by Joanna Winters MD Transcribed by Che Middleton Authenticated and . [facility]
== END 2025-03-19 23:59 | disposition home or self-care (01) ==
LOC: RAD 13:33
PROVIDERS: PCP Nurse Practitioner Family; Visit Provider Nurse Practitioner Family
DX: M19.041 Primary osteoarthritis, right hand; M85.842 Other specified disorders of bone density and structure, left hand; M19.042 Primary osteoarthritis, left hand
CPT/HCPCS: 73130

== ENCOUNTER 2025-04-04 13:15 | Outpatient (CLI) | payer MEDICARE, SELFPAY ==
--- OUTSIDE RECORDS SUMMARY | 2024-08-19 16:30 | XMS_ITS ---
Author Organization [facility] Address [address] [facility] [address] [place] [address] Care Team Providers Care Director Of Neurology Name Role Phone Danuta Dukes Primary Care Provider Migration, Provider Unavailable Unavailable REASON FOR VISIT [facility] To [facility] Conversion Encounter Medications Medication SIG (Take, Route, Frequency, Duration) Notes Start Date End Date Status Xarelto 20 MG TAKE 1 TABLET DAILY Active SUMAtriptan Succinate 100 MG 1 tab(s) orally as directed for headache; Duration: 90 days Active buPROPion HCl ER (XL) 150 MG 1 tab(s) orally every 24 hours Active Cymbalta 60 MG 2 caps orally once a day; Duration: 90 days Active Metoprolol Succinate ER 50 MG 1 tab(s) orally once a day; Duration: 90 days Active Melatonin 5 MG 1 tab(s) orally once a day (at bedtime) Active Aspirin 81 MG 1 TAB(S) ORALLY ONCE A DAY; Duration: 30 DAY(S) *Please review and [facility] If intended option is not shown, discontinue and re-order from Quick Search* Active Co Q-10 100 MG 1 cap(s) orally once a day; Duration: 30 day(s) Active CPAP MACHINE WITH ADULT SETUP *Please review for potential replacement for e-prescription and drug interaction check* Active Vitamin D3 50 MCG (1999 UT) 4 tab(s) orally once daily Active Prolia 60 MG/ML as directed subcutaneously every 6 months Active B-12 1000 MCG 1 tab(s) orally once a day Active Magnesium Oxide 400 MG 1 tab(s) orally once a day; Duration: 30 days 08/20/2015 Active Lansoprazole 15 MG 1 cap(s) orally once a day; Duration: 30 day(s) Active FiberCon 625 MG 1 tab orally once a day Active Encounters Encounter Location Date Provider Diagnosis [facility] [address] [place] [address] 08/19/2024 Provider Migration Plan Of Treatment No Information Progress Notes * Esther CHINCHILLADOB: 1 (74 yo F)Acc No.[id number]:08/19/2024 Patient: Esther BRITT Provider: Mignon alva Migration :1950 A ge:73 Y S ex:Female Date:08/19/2024 Address:[address] [place] [address], [place], [id number] Pcp:Danuta Dukes Subjective: * Chief Complaints: * 1 . [facility] To [facility] Conversion Encounter. * Medical History: * Medications: T aking B-12 1000 MCG Tablet 1 tab(s) orally once a day , Taking Prolia 60 MG/ML Solution Prefilled Syringe as directed subcutaneously every 6 months , Taking FiberCon 625 MG Tablet 1 tab orally once a day , Taking Lansoprazole 15 MG Capsule Delayed Release 1 cap(s) orally once a day , Taking Magnesium Oxide 400 MG Tablet 1 tab(s) orally once a day , Taking Vitamin D3 50 MCG (2000 UT) Tablet 4 tab(s) orally once daily , Taking CPAP MACHINE WITH ADULT SETUP , Notes to Pharmacist: *Please review for potential replacement for e-prescription and drug interaction check*, Taking Co Q-10 100 MG Capsule 1 cap(s) orally once a day , Taking Aspirin 81 MG TABLET 1 TAB(S) ORALLY ONCE A DAY , Notes to Pharmacist: *Please review and pick [facility]. If intended option is not shown, discontinue and re-order from Quick Search*, Taking Melatonin 5 MG Capsule 1 tab(s) orally once a day (at bedtime) , Taking buPROPion HCl ER (XL) 150 MG Tablet Extended Release 24 Hour 1 tab(s) orally every 24 hours , Taking SUMAtriptan Succinate 100 MG Tablet 1 tab(s) orally as directed for headache , Taking Xarelto 20 MG Tablet TAKE 1 TABLET DAILY , Taking Metoprolol Succinate ER 50 MG Tablet Extended Release 24 Hour 1 tab(s) orally once a day , Taking Cymbalta 60 MG Capsule Delayed Release Particles 2 caps orally once a day Objective: * Vitals: Assessment: Plan: * Treatment: * * Electronic signature of Prov ider Migration on 04/04/2025 at 02:20 PM EST Sign off status: Pending * Provider: Mignon alva Migration Date: 0 08/19/2024 Generated for Soo johnson/Rich/Jarvis on: 1 06/04/2024 02:20 PM EST
--- OUTSIDE RECORDS SUMMARY | 2025-03-19 07:15 | XMS_ITS ---
Author Organization [facility] PE D ROZ Address [address] [facility] [address] [place] [address] Care Team Providers Care Business Analyst Name Role Phone Danuta Dukes Primary Care Provider [phone] Allergies No Known Allergies Results Component Value Reference Range Notes X ray : Hand, Left Reviewed date:03/22/2025 05:21:27 PM Interpretation: Performing Lab: Notes/Report: X ray : Hand, Right Reviewed date:03/26/2025 12:56:57 PM Interpretation: Performing Lab: Notes/Report: Reason For Referral Reason Will need screening colonoscopy with dmitry Kate after May.17. Will also need direction from cardiology at [facility] regarding her anticoagulants Diagnosis 1 Medicare annual well ness visit, subsequent (Z00.00) Referral Organization [facility] JENNIFER ROJAS Referring Provider First Name Danuta Referring Provider Last Name Roseline Referring Provider Speciality Family Pra ctice Referred Organization [facility] Referred Address [address] [facility], [place],[address], Referred Provider Specialty Gastroentero logy General Notes Joan Ferguson 2024 03:14:40 PM >sent to Dr. Kim- They will call patient to schedule appt. Referral Priority Routine REASON FOR VISIT Yearly; Labs-non fasting, flu shot Medications Medication SIG (Take, Route, Frequency, Duration) Notes Start Date End Date Status Co Q-10 100 MG 1 cap(s) orally twic e a day; Duration: 30 days Active CPAP MACHINE WITH ADULT SETUP Active Vitamin D3 50 MCG (1999) 4 tab(s) ora lly once daily Active Magnesium Oxide 400 MG 1 tab(s) orally o nce a day; Duration: 30 days 08/20/2015 Active Lansoprazole 15 MG 1 cap(s) orally once a day; Duration: 30 day(s) Active Reclast 5 MG/100ML as directed Intravenous Active Nurtec 75 MG 1 tablet on the tong ue and allow to dissolve Orally 03/19/2025 Active FiberCon 625 MG 1 tab orally once a day Active B-12 1000 MCG 1 tab(s) orally once a day Active buPROPion HCl ER (XL) 150 mg TAKE 1 TABLET EVERY 24 HOURS Active DULoxetine HCl 60 MG 2 caps Orally Once a day; Duration: 14 days 03/03/2025 Active Xarelto 20 mg TAKE 1 TABLET DAILY Active Metoprolol Succinate ER 50 MG 1 tab(s) orally once a day; Duration: 90 days Active Melatonin 5 MG 1 tab(s) orally once a day (at bedtime) Active Aspirin 81 MG 1 TAB(S) ORALLY ONCE A DAY; Duration: 30 DAY(S) Active Immunizations Vaccine Route Administration Date Status Comme nts Fluzone High Dose IM Intramuscular 03/19/2025 Administered Problems Problem Type SNOMED Code ICD Code Onset Dates Problem Status W/U Status Risk Notes Problem Episodic migraine (7020383584216 06) Episodic migraine (G43.909) Active confirmed Vital Signs Temperature 97.6 degrees Fahrenheit 03/19/20 25 Blood pressure systolic 122 mm Hg 03/19/20 25 Blood pressure diastolic 76 mm Hg 025 Heart Rate 78 /min 03/19/2025 Height 5 ft 4.25 in in 03/19/2025 Weight 176.6 lbs 03/19/2025 BMI 30.07 kg/m2 03/19/2025 Encounters Encounter Location Date Provider Diagnosis [facility] [address] [place], [place] [address] 03/19/2025 Danuta Dukes Vitamin D deficiency E55.9 ; Chronic constipation K59.09 ; Medicare annual wellness visit, subsequent Z00.00 ; Essential hypertension with goal blood pressure less than 140\/90 I10 ; Osteoporosis M81.0 ; Depression with anxiety F41.8 ; JOE (obstructive sleep apnea) G47.33 ; Low vitamin B12 level E53.8 ; Obesity (BMI 30-39.9) E66.9 ; PAF (paroxysmal atrial fibrillation) I48.0 ; Hand arthritis M19.049 ; Immunization(s) administered Z23 ; Visit for screening mammogram Z12.31 and Episodic migraine G43.909 Assessments Encounter Date Diagnosis (ICD Code) Assessment Notes Treatment Notes Treatment Clinical Notes Section Notes 03/19/2025 Vitamin D deficiency (ICD-10 - E55.9) Dr Sullivan following 03/19/2025 Chronic constipation (ICD-10 - K59.09) continue fiber and magnesium supplements 03/19/2025 Medicare annual wellness visit, subsequent (ICD-10 - Z00.00) encouraged again to complete living will, continue specialty FU 03/19/2025 Essential hypertension with goal blood pressure less than 140\/90 (ICD-10 - I10) cardiology following 03/19/2025 Osteoporosis (ICD-10 - M81.0) Dr Sullivan managing 03/19/2025 Depression with anxiety (ICD-10 - F41.8) continue current regimen, well controlled 03/19/2025 JOE (obstructive sleep apnea) (ICD-10 - G47.33) continue use of PAP during sleep 03/19/2025 Low vitamin B12 level (ICD-10 - E53.8) will repeat level with next labs 03/19/2025 Obesity (BMI 30-39.9) (ICD-10 - E66.9) stable, weight loss encouraged 03/19/2025 PAF (paroxysmal atrial fibrillation) (ICD-10 - I48.0) continue FU with [facility] cardiology, improved control and symptoms on current regimen 03/19/2025 Hand arthritis (ICD-10 - M19.049) Continue tylenol as needed, xrays today 03/19/2025 Immunization(s) administered (ICD-10 - Z23) 03/19/2025 Visit for screening mammogram (ICD-10 - Z12.31) 03/19/2025 Episodic migraine (ICD-10 - G43.909) For that she not take triptans given her cardiac history, advancing age. Single [facility] provided Plan Of Treatment Medication Medication Name Sig Start Date Stop Date Notes Nurtec 75 MG 1 tablet on the tong ue and allow to dissolve Orally 03/19/2025 SUMAtriptan Succinate 100 MG 1 tab(s) or ally as directed for headache prn Treatment Notes Assessment Notes Vitamin D deficiency Dr Sullivan following Chronic constipation continue fiber and magnesium supplements Essential hypertension with goal blood pressure less than 140\/[address] Sullivan managing Depression with anxiety continue current regimen, well controlled JOE (obstructive sleep apnea) continue u se of PAP during sleep Low vitamin B12 level will repeat level with next labs Obesity (BMI 30-39.9) stable, weight los s encouraged PAF (paroxysmal atrial fibrillation) con claudeue FU with [facility] cardiology, improved control and symptoms on current regimen Pending Test Test Name Order Date Mammogram: Screening 03/19/2025 LIPID PANEL, STANDARD (7600) 03/19/2025 COMPREHENSIVE METABOLIC PANEL (04202) CBC (INCLUDES DIFF/PLT) (6399) VITAMIN B12 (927) 03/19/2025 VITAMIN D,25-OH,TOTAL,IA (27371) 025 Referrals Referral Date Details 03/19/2025 03/19/2025, Lio griffith screening colonoscopy with Dr Kim, prefers after May.17. Will also need direction from cardiology at [facility] regarding her anticoagulants, [address] [facility], [place], [address], Next Appt Details Follow Up: 6 Months, Reason: Progress Notes * Esther CHINCHILLA ChrisDOB: (74 yo F)Acc No.[id number]:03/19/2025 Progress Notes Patient: Esther BRITT Provider: PRATIBHA Henderson :1950 A ge:74 Y S ex:Female Date:03/19/2025 Address:[address] [place] [address] [id number] Subjective: * Chief Complaints: * 1 . Yearly; Labs-non fasting. 2. Flu shot. * HPI: g en: 74-year-old female presents today for 6 mo chronic disease FU and AWV. No acute concerns. Still seeing Dr. Slulivan annually, manages her osteoporosis. Not sure when her next visit is due? Did have Reclast in December Following with cardiology as well for management of afib. Compliant with CPAP. Mood - reports tolerable on current regimen Arthritis - bilat hands, right shoulder, elbows at times. Labs for autoimmune arthritis last year were negative. Gets relief with tylenol arthritis BID. * ROS: F UNCTIONAL STATUS: ADLS I ndependent for all ADL/IADL. R ESPIRATORY: Shortness of breath y es, w orse with exertion, at baseline. C ARDIOLOGY: no D izziness. n o C hest pain. n o L eg edema. C ONSTITUTIONAL: no L oss of appetite. n o F ever. n o W eakness. F atigue y es. D ERMATOLOGY: no R chayito. G ASTROENTEROLOGY: Reviewed, No Symptoms Reported: Y es. M USCULOSKELETAL: Joint stiffness y es, h ands, knees. right ring finger PIP, ring won't come off. J oint pain y es. J oint swelling y es. N EUROLOGY: Tingling numbness y es. n o S eizures. n o M jovan loss. O PTHALMOLOGY: Reviewed, No Symptoms Reported: Y es. P SYCHOLOGY: Depression y es, i mproved on treatment. ? U ROLOGY: Reviewed, No Symptoms Reported: Y es. * [...] 2010, vomitting 2012, vomitting 1973, child 01/05-, [facility] - Afib 12/2022. * Family History: F ather: . M other: . P aternal Grand Father: . P aternal Grand Mother: . M aternal Grand Father: . M aternal Grand Mother: . Maternal uncle: . S iblings: alive, RA. C nabila: alive. 2 sister(s) - healthy. 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 * Medications: T aking Reclast 5 MG/100ML Solution as directed Intravenous , Taking B-12 1000 MCG Tablet 1 [...] Taking CPAP MACHINE WITH ADULT SETUP , Taking Co Q-10 100 MG Capsule 1 cap(s) orally twice a day , Taking Aspirin 81 MG TABLET 1 TAB(S) ORALLY ONCE A DAY , Taking Melatonin 5 MG Capsule 1 tab(s) orally once a day (at bedtime) , Taking buPROPion HCl ER (XL) 150 mg Tablet Extended Release 24 Hour TAKE 1 TABLET EVERY 24 HOURS , Taking SUMAtriptan Succinate 100 MG Tablet 1 tab(s) orally as directed for headache , Notes to Pharmacist: prn, Taking Metoprolol Succinate ER 50 MG Tablet Extended Release 24 Hour 1 tab(s) orally once a day , Taking Xarelto 20 mg Tablet TAKE 1 TABLET DAILY , Taking DULoxetine HCl 60 MG Capsule Delayed Release Particles 2 caps Orally Once a day , Discontinued Prolia 60 MG/ML Solution Prefilled Syringe as directed Subcutaneous , Medication List reviewed and reconciled with the patient * Allergies: N .K.D.A. Objective: * Vitals: N urse: jl, Pain: 0, Temp: 97.6, RR: 18, HR: 78, BP: 122/76, Ht: 5 ft 4.25 in, Wt: 176.6, BMI:30.07. * Examination: G eneral Examination: General P leasant and Cooperative, NAD on RA,. Oral cavity: M oist membranes. Heart: R RR, No m/r/g/h, Nl S1S2, No JVD, 2(+) symmetric pulses, No edema,. Lungs: L CTAB, No wheezes, crackles or rhonchi, Good air movement,. Abdomen: S oft, NTND, BSNA, No organomegaly or peritoneal signs.. Skin: w ithout acute rashes. Peripheral pulses: n ormal (2+) bilaterally. Extremities: a rthritic changes bilat hands, worse right ring finger PIP joint. neck s upple,, no thyromegaly,, no lymphadenopathy,. Psych N ormal Mood/Affect. Assessment: * Assessment: 1. M lamine annual wellness visit, subsequent - Z00.00 (Primary) 2 . V itamin D deficiency - E55.9 3 . C hronic constipation - K59.09 4 .?Essential hypertension with goal blood pressure less than 140\/90 - I10 5 . Osteoporosis - M81.0 6 . D epression with anxiety - F41.8 7 .?JOE (obstructive sleep apnea) - G47.33 8 . L ow vitamin B12 level - E53.8? 9. O besity (BMI 30-39.9) - E66.9 1 0. P AF (paroxysmal atrial fibrillation) - I48.0 1 1. H and arthritis - M19.049 1 2.?Immunization(s) administered - Z23 1 3. V isit for screening mammogram - Z12.31 1 4. E pisodic migraine - G43.909 Plan: * Treatment: 2. V itamin D deficiency L AB: LIPID PANEL, STANDARD (7600) L AB: COMPREHENSIVE METABOLIC PANEL (77169) L AB: CBC (INCLUDES DIFF/PLT) (6399) L AB: VITAMIN D,25-OH,TOTAL,IA (88724) Notes: Dr Sullivan following 3. C hronic constipation Notes: continue fiber and magnesium supplements 4. E ssential hypertension with goal blood pressure less than 140\/90 L AB: LIPID PANEL, STANDARD (7600) L AB: COMPREHENSIVE METABOLIC PANEL (85936) L AB: CBC (INCLUDES DIFF/PLT) (6399) Notes: cardiology following 5. O steoporosis Notes: Dr Sullivan managing 6. D epression with anxiety Notes: continue current regimen, well controlled 7. O SA (obstructive sleep apnea) Notes: continue use of PAP during sleep 8. L ow vitamin B12 level L AB: VITAMIN B12 (927) Notes: will repeat level with next labs 9. O besity (BMI 30-39.9) Notes: stable, weight loss encouraged 10. P AF (paroxysmal atrial fibrillation) L AB: LIPID PANEL, STANDARD (7600) L AB: COMPREHENSIVE METABOLIC PANEL (54231) L AB: CBC (INCLUDES DIFF/PLT) (6399) Notes: continue FU with [facility] cardiology, improved control and symptoms on current regimen 11. H and arthritis I maging: X ray : Hand, Left * ?Imaging: X ray : Hand, Right* Adela Alvarado 03/22/2025 03: 13:43 PM EST >This DI was reviewed by Adela Alvarado on 03/26/2025 at 12:56 PM EST * Clinical Notes: Continue tylenol as needed, xrays today??12.?Visit for screening mammogram?Imaging: Mammogram: Screening* 13.?Episodic migraine? Stop SUMAtriptan Succinate Tablet, 100 MG, 1 tab(s), orally, as directed for headache, Notes to Pharmacist: prn;?Start Nurtec Tablet Disintegrating, 75 MG, 1 tablet on the tongue and allow to dissolve, Orally.?? Clinical Notes: For that she not take triptans given her cardiac history, advancing age. Single Nurtec provided?? * Immunizations: Fluzone High Dose : 0.5 mL (Dose No:1) (Route: Intramuscular) given by VAL Camara on Left Deltoid (Immunization(s) administered) * Procedure Codes: 9 0662 Influenza High Dose Vaccine >65 Years Old, G0008 ADMINISTRATION-FLU VACCINE MEDICARE ONLY, G0439 ANNUAL WELLNESS VST; PPS SUBSQT VST, G8399 PT W/DXA DOCUMENT OR ORDER, 1124F ADVANCED DIRECTIVE - NO LIVING WILL, G9479 Screening diagnostic,film,digital results documented and reviewed, 6492F COLORECTAL CA SCREEN DOC REV, G5174 BMI >=30 CALCUATE W/FOLLOWUP, G8510 NEGATIVE SCREENING F/U NOT REQUIRED, G9673 Pt scrn tbco id as non user, G8752 Most recent systolic blood pressure < 140mmhg, G8754 Most recent diastolic blood pressure < 90mmhg, G9744 PATIENT NOT ELIG D/T ACTIVE DX HTN * Preventive Medicine: Counseling: L iving will D oes not have living will, Additional information provided. LATOYA Screening: F alls: Future screening for fall risks H ave you had two or more falls in the past year? N o, H ave you had any falls with injury in the past year? N o. Depression Screening: P HQ 2 F eeling down depressed or hopeless Y es on treatment, improved. Immunizations: i nfluenza H ave you had a flu shot since the most recent January 15 ? Y es. P neumonia vaccine: Status for Older Adults A re you up-to-date on your pneumonia vaccine? yes or no P CV 20. Z ostavax A t retail pharmacy. T dap U TD. Shingrix A t retail pharmacy. C OVID C ompleted series. R SV vaccination H as had as part of a study. Screening / Special Tests: M ammogram r epeat due. C olonoscopy 2 020, repeat due. B one mineral Density F ollowed by Dr Sullivan. Mitul aftab Cancer Screening N ot indicated - nonsmoker. * Follow Up: 6 Months * * Sign off status: Completed true * Provider: PRATIBHA Henderson Date: 05/19/2024 Generated for Soo johnson/Rich/Jarvis on: 06/04/2024 02:21 PM EST History and Physical Notes * Examination Category Sub-Category Detail Notes Category Not es General Examination Heart: RRR, No m/r/ g/h, Nl S1S2, No JVD, 2(+) symmetric pulses, No edema, Lungs: LCTAB, No wheezes, c rackles or rhonchi, Good air movement, Abdomen: Soft, NTND, BSNA, No organomegaly or peritoneal signs. Extremities: arthritic changes bi lat hands, worse right ring finger PIP joint Skin: without acute rashes Oral cavity: Moist membranes Peripheral pulses: normal (2+) bilatera lly neck supple,, no thyromeg ton,, no lymphadenopathy, General Pleasant and Coopera tive, NAD on RA, Psych Normal Mood/Affect Consultation Request Notes Referral Date Referring Provider Referred Provider Not es 03/19/2025 Danuta Dukes , Will need sc reening colonoscopy with Dr Kim, prefers after May.17. Will also need direction from cardiology at [facility] regarding her anticoagulants
--- NOTE | 2025-04-04 13:17 | MM_ITS ---
PROCEDURE INFORMATION: Exam: MG Bilateral Screening 3D Mammography Exam date and time: 04/04/2025 1:16 PM Age: 74 years old Clinical indication: Screening examination TECHNIQUE: Imaging protocol: Bilateral Screening tomosynthesis and 2D mammography including computer-aided detection (CAD) when performed. COMPARISON: 1. MG MM DIG SCREENING MAMM BI W/CAD 10/04/2023 2:51 PM 2. MG MM DIG MAMM DX UNILAT LT CAD 06/24/2022 1:58 PM FINDINGS: MAMMOGRAPHY: Breast composition: There are scattered areas of fibroglandular density. Mass: No suspicious masses. Architectural distortion: None. Calcifications: No suspicious calcifications. Asymmetric density: None. Skin thickening: None. Axillary adenopathy: None. IMPRESSION: No mammographic evidence of malignancy. Annual screening is recommended unless otherwise clinically indicated. ASSESSMENT: BI-RADS Category 1: Negative.
--- OUTSIDE RECORDS SUMMARY | 2025-04-04 14:21 | XMS_ITS | Encounter Summary ---
Author Organization [facility] Address [address] [place] [address] Care Team Providers Care Automotive Tire Tester Name Role Phone Danuta Dukes RIO Primary Care Provider [phone] Encounter Details Date Type Department Care Team (Late Contact Info) Description 03/28/2025 Orders Only [facility] [address] [place] [address] Michelle Ann Age-related osteoporosis without current pathological fracture (Primary Dx); CKD (chronic kidney disease) stage 2, GFR 60-89 ml/min Social History Tobacco Use Types Packs/Day Years Used Date Smoking Tobacco: Former Smokeless Tobacco: Never Alcohol Use Standard Drinks/Week Comments Yes 0 (1 standard drink = 0.6 oz pur e alcohol) PHQ-2 Answer Date Recorded Patient Health Questionnaire-2 Score 0 08/31/2023 Comments Unknown Sex and Gender Information Value Date Recorded Sex Assigned at Not on file Legal Sex Female 6:51 PM EDT Gender Identity Not on file Sexual Orientation Not on file documented as of this encounter Plan of Treatment Upcoming Encounters Date Type Department Care Team (Late Contact Info) Description 04/09/2025 11:00 AM EST Ovarian Cancer Screening [facility] [address] [place] [address] 04/27/2025 12:00 PM EST Office Visit [facility] [address] [place] [address] Rowan Mane APRN [address] [facility] [address] [place] [address] Scheduled Orders Name Type Priority Associated Diagnoses Orde r Schedule Renal Function Panel, Plasma Lab Routine Age-related osteoporosis without current pathological fracture CKD (chronic kidney disease) stage 2, GFR 60-89 ml/min Expected: 03/28/2025 (Approximate), Expires: 09/25/2026 CBC and Differential Lab Routine Age-related osteoporosis without current pathological fracture CKD (chronic kidney disease) stage 2, GFR 60-89 ml/min Expected: 03/28/2025 (Approximate), Expires: 09/25/2026 Creatinine, Random, Urine Lab Routine Age-related osteoporosis without current pathological fracture CKD (chronic kidney disease) stage 2, GFR 60-89 ml/min Expected: 03/28/2025 (Approximate), Expires: 09/25/2026 Protein, Random, Urine with Creatinine Lab Routine Age-related osteoporosis without current pathological fracture CKD (chronic kidney disease) stage 2, GFR 60-89 ml/min Expected: 03/28/2025 (Approximate), Expires: 09/25/2026 Urinalysis with reflex microscopic (Culture NOT Included) Lab Routine Age-related osteoporosis without current pathological fracture CKD (chronic kidney disease) stage 2, GFR 60-89 ml/min Expected: 03/28/2025 (Approximate), Expires: 09/25/2026 PTH Intact Total Lab Routine Age-related osteoporosis without current pathological fracture CKD (chronic kidney disease) stage 2, GFR 60-89 ml/min Expected: 03/28/2025 (Approximate), Expires: 09/25/2026 Vitamin D 25 Hydroxy Lab Routine Age-related osteoporosis without current pathological fracture CKD (chronic kidney disease) stage 2, GFR 60-89 ml/min Expected: 03/28/2025 (Approximate), Expires: 09/25/2026 Bone Specific Alkaline Phosphatase Lab Routine Age-related osteoporosis without current pathological fracture Expected: 03/28/2025 (Approximate), Expires: 09/25/2026 C-Telopeptide Lab Routine Age-related osteoporosis without current pathological fracture Expected: 03/28/2025 (Approximate), Expires: 09/25/2026 Osteocalcin by ECIA Lab Routine Age-related osteoporosis without current pathological fracture Expected: 03/28/2025 (Approximate), Expires: 09/25/2026 N telopeptide, cross-linked, serum Lab Routine Age-related osteoporosis without current pathological fracture Expected: 03/28/2025 (Approximate), Expires: 09/25/2026 documented as of this encounter Visit Diagnoses Diagnosis Age-related osteoporosis without current pathological fracture- Primary CKD (chronic kidney disease) stage 2, GFR 60-89 ml/min Chronic kidney disease, Stage II (mild) documented in this encounter Additional Health Concerns Assessment Noted Time A fall risk assessment has been complete d for the patient 08/31/2023 1:58 PM EDT A Body Mass Index follow-up plan has been documented for the patient 08/31/2023 2:27 PM EDT documented as of this encounter Care Teams Automotive Tire Tester Relationship Specialty Start Date End Date Danuta Dukes APRN [facility] [address] [place] [address] PCP - General 04/22/21 documented as of this encounter
--- OUTSIDE RECORDS SUMMARY | 2025-04-04 14:21 | XMS_ITS | Clinical Summary ---
Author Organization Jose WASHINGTON OD Address [address] [facility] [place] [address] Phone Care Team Providers Care Bit Tapper Name Role Phone Unavailable Primary Care Provider [...] Chronic kidney disease, stag e 3 unspecified ([facility]) 03/26/2023 Documented on 04/06/2022 by WATSON LANGFORD DDD (degenerative disc disea se), lumbar 07/17/2020 Essential (primary) hypertension 09/09/2016 Lumbar facet arthropathy 07/17/2020 Osteoporosis 11/29/2012 PAF (paroxysmal atrial fibri llation) ([facility]) 03/26/2023 Social History Tobacco Use Types Packs/Day [...] 10/29/1995 DTaP/TDaP/Td (1 - Tdap) 07/19/1996 07/18/1996 RSV or 60+ (1 - Risk 50-74 years 1-dose series) 2000 Zoster (1 of 2) 2000 Bone Density Screening 10/29/2015 COVID-19 Vaccine ( season) 2025 01/28/2022, 08/19/2021, 01/15/2021, Additional history exists Influenza Vaccine (#1) 2025 , 04/07/2022, 03/25/2021, Additional history exists Pneumococcal Vaccine 50+ Completed 09/20/2023, 05/2017 Hepatitis B Vaccine Aged Out No longe r eligible based on patient's age to complete this topic Meningococcal B Vaccine Aged Out No l onger eligible based on patient's age to complete this topic Insurance MEDICARE PPO MR MEDICARE PPO MR Advance Directives For more information, please contact: [phone] * Full Code (Latest Code Status on File) Date Activated Date Inactivated Comments 04/19/2023 4:14 PM 04/20/2023 9:19 PM
--- OUTSIDE RECORDS SUMMARY | 2025-04-04 14:21 | XMS_ITS | Encounter Summary ---
Author Organization [facility] Address [address] [place] [address] Care Team Providers Care Private Duty Aide Name Role Phone Danuta Dukes APRN Primary Care Provider [phone]- [phone] Reason for Referral * Consultation (Routine) - Authorized Specialty Diagnoses / Procedures Referred By Contwendy t Referred To Contact Nephrology Diagnoses Osteoporosis, unspecified osteoporosis type, unspecified pathological fracture presence Danuta Dukes APRN [address] [id number] Phone: tel: fax: [facility] Nephrology, Bone & Mineral Metabolism [address] [facility], [address] [place] [address] Phone: tel: fax: Referral ID Status Reason Start Date Expiration Date Visits Requested Visits Authorized [id number] Authorized Specialty Services Required 03/21/2025 09/20/2026 1 1 Encounter Details Date Type Department Care Team (Latest Contact Info) Description 03/21/2025 Community [facility] [address] [place] [address] Danuta Dukes APRN [address] [address] Osteoporosis, unspecified osteoporosis type, unspecified pathological fracture presence (Primary Dx) Social History Tobacco Use Types Packs/Day Years [...] Upcoming Encounters Date Type Department Care Team ([facility] st Contact Info) Description 04/09/2025 11:00 AM EST Ovarian Cancer Screening [facility] Gynecology [address] , [address] [place] [address] 04/27/2025 12:00 PM EST Office Visit [facility] [address] [place] [address] Rowan Mane, TELERADIOLOGIST [address] [facility] [address] [place] [address] Scheduled Referrals Name Type Priority Associated Diagnoses Orde r Schedule Ambulatory referral to Nephrology Outpatient Referral Routine Osteoporosis, unspecified osteoporosis type, unspecified pathological fracture presence Expected: 03/21/2025 (Approximate), Expires: 09/22/2026 documented as of this encounter Visit Diagnoses Diagnosis Osteoporosis, unspecified osteoporosis type, unspecified pathological fracture presence- Primary documented in this encounter Additional Health Concerns Assessment Noted Time A fall risk assessment has been complete d for the patient 08/31/2023 1:58 PM EDT A Body Mass Index follow-up plan has been documented for the patient 08/31/2023 2:27 PM EDT documented as of this encounter Care Teams Private Duty Aide Relationship Specialty Start Date End Date Danuta Dukes APRN [address] [facility] [address] [place] [address] PCP - General 04/22/21 documented as of this encounter
--- OUTSIDE RECORDS SUMMARY | 2025-04-04 14:21 | XMS_ITS | Patient Health Record ---
Author Organization [facility] Address [address] [place] [address] Care Team Providers Care Waste Cotton Cleaner Name Role Phone Danuta Dukes Primary Care Provider [phone] Migration, Provider Unavailable Unavailable Allergies No Known Allergies Results Component Value Reference Range Notes X ray : Hand, Right Reviewed date:03/26/2025 12:56:57 PM Interpretation: Performing Lab: Notes/Report: X ray : Hand, Left Reviewed date:03/22/2025 05:21:27 PM Interpretation: Performing Lab: Notes/Report: Medications Medication SIG (Take, Route, Frequency, Duration) Notes Start Date End Date Status Reclast 5 MG/100ML as directed Intravenous Active buPROPion HCl ER (XL) 150 mg TAKE 1 TABLET EVERY 24 HOURS Active Melatonin 5 MG 1 tab(s) orally once a day (at bedtime) Active Aspirin 81 MG 1 TAB(S) ORALLY ONCE A DAY; Duration: 30 DAY(S) Active Co Q-10 100 MG 1 cap(s) orally twic e a day; Duration: 30 days Active CPAP MACHINE WITH ADULT SETUP Active Vitamin D3 50 MCG (1999) 4 tab(s) ora lly once daily Active Magnesium Oxide 400 MG 1 tab(s) orally o nce a day; Duration: 30 days 08/20/2015 Active Lansoprazole 15 MG 1 cap(s) orally once a day; Duration: 30 day(s) Active DULoxetine HCl 60 MG 2 caps Orally Once a day; Duration: 14 days 03/03/2025 Active FiberCon 625 MG 1 tab orally once a day Active Xarelto 20 mg TAKE 1 TABLET DAILY Active B-12 1000 MCG 1 tab(s) orally once a day Active Metoprolol Succinate ER 50 MG 1 tab(s) orally once a day; Duration: 90 days Active Nurtec 75 MG 1 tablet on the tong ue and allow to dissolve Orally 03/19/2025 Active Immunizations Vaccine Route Administration Date Status Comme nts Adacel (Tdap) IM Intramuscular 08/29/2014 Administered Fluvirin--Influenza vaccine 3+ year IM Intramuscular 02/22/2012 Administered FLUZONE 6MO - OLDER Unknown 04/07/2022 Administered Fluzone High Dose IM Intramuscular 02/14/2018 Administered Fluzone High Dose Unknown 04/04/2019 Administered Fluzone High Dose IM Intramuscular 03/19/2025 Administered Prevnar PCV-13 (Pneumococcal conjugate 13) IM Intramuscular 02/14/2018 Administered Prevnar PCV-20 (Pneumococcal conjugate 20) IM Intramuscular 09/20/2023 Administered Td Adult Unknown 07/18/1996 Administered Problems Problem Type SNOMED Code ICD Code Onset Dates Problem Status W/U Status Risk Notes Problem Hyperlipidemia (13421299) Hyperlipidemia, unspecified (E78.5) Active confirmed Low Problem Atrial fibrillation (82142298) Unspecified atrial fibrillation (I48.91) Active confirmed Problem Cellulitis of left upper limb (69316793766851783 ) Cellulitis of left upper limb (L03.114) Active confirmed Problem Snoring (14030617) Snoring (R06.83) Active conf irmed Problem Abnormal findings on diagnostic imaging of breast (286903737) Other abnormal and inconclusive findings on diagnostic imaging of breast (R92.8) Active confirmed Problem Mixed anxiety and depressive disorder (807001980) Depression with anxiety (F41.8) Active confirmed Problem Vitamin D deficiency (62074836) Vitamin D deficiency (E55.9) Active confirmed Problem Osteoporosis (71457760) Osteoporosis (M81.0) Active confirmed Problem Microscopic hematuria (464211509) Microscopic hematuria (R31.2) Active confirmed Problem Idiopathic peripheral neuropathy (28770077) Idiopathic peripheral neuropathy (G60.9) Active confirmed Problem Palpitations (27049550) Palpitation (R00.2) Active confirmed Problem Obesity (698309785) Obesity (BMI 30-39.9) (E66.9) Active confirmed Problem Body mass index 30+ - obesity (313157902) BMI 30.0-30.9,adult (Z68.30) Active confirmed Problem Generalized aches and pains (22515616) Body aches (R52) Active confirmed Problem Skin sensation disturbance (35102924) Paresthesia of both feet (R20.2) Active confirmed Problem Obstructive sleep apnea syndrome (64630199) JOE (obstructive sleep apnea) (G47.33) Active confirmed Problem Atrial fibrillation (95909656) Atrial fibrillation, unspecified type (I48.91) Active confirmed Problem BMI 25-29 - overweight (496136221) BMI 29.0-29.9,adult (Z68.29) Active confirmed Problem Essential hypertension (91018628) Essential hypertension with goal blood pressure less than 140\/90 (I10) Active confirmed Problem Chronic constipation (631579252) Chronic constipation (K59.09) Active confirmed Problem Serum vitamin B12 low (834676182) Low vitamin B12 level (E53.8) Active confirmed Problem Retinal vein occlusion (4659152962) Retinal vein occlusion (H34.9) Active confirmed Problem Atrial fibrillation (39110460) Atrial fibrillation with RVR (I48.91) Active confirmed Problem Localized, primary osteoarthritis of the hand (697883764) Hand arthritis (M19.049) Active confirmed Problem Mitral valve disorder (75446194) Mitral valve insufficiency, unspecified etiology (I34.0) Active confirmed Problem Atrial fibrillation (49040931) PAF (paroxysmal atrial fibrillation) (I48.0) Active confirmed Problem Lumbar spondylosis (733316104) Lumbar spondylosis (M47.816) Active confirmed Problem Diastolic dysfunction (6146517) Diastolic dysfunction (I51.89) Active confirmed Problem Episodic migraine (000196623452612) Episodic migraine (G43.909) Active confirmed Problem Cardiomegaly (6626334) Atrial enlargement, left (I51.7) Active confirmed Vital Signs Heart Rate 78 /min 03/19/2025 Temperature 97.6 degrees Fahrenheit 03/19/2025 Blood pressure diastolic 76 mm Hg 03/19/2025 Height 5 ft 4.25 in in 03/19/2025 Blood pressure systolic 122 mm Hg 03/19/2025 Weight 176.6 lbs 03/19/2025 BMI 30.07 kg/m2 03/19/2025 Encounters Encounter Location Date Provider Diagnosis [facility] [address] [facility] [address] [place], [place] [address] 08/19/2024 Provider Migration [facility] [address] [facility] [address] [place], [place] [address] 08/17/2024 Danutakelsey Dukes Essential hypertension with goal blood pressure less than 140\/90 I10 ; Osteoporosis M81.0 ; Depression with anxiety F41.8 ; JOE (obstructive sleep apnea) G47.33 ; PAF (paroxysmal atrial fibrillation) I48.0 and Hand arthritis M19.049 [facility] [address] [address] 11/08/2024 Danuta [place] Impacted cerumen, left ear H61.22 ; Dermatitis L30.9 and Wears hearing aid Z97.4 [facility] [address] [facility] [address] [place], [place] [address] 03/19/2025 Danuta [place] Vitamin D deficiency E55.9 ; Chronic constipation [...] screening mammogram Z12.31 and Episodic migraine G43.909 [facility] [address] [facility] [address] [place], [place] [address] 08/03/2024 Danuta [place] [facility] [address] [address] 09/15/2024 Danuta Roseline [facility] [address] [facility] [address] [place], [place] [address] 03/03/2025 Danuta Roseline [facility] [address] [facility] [address] [place], [place] [address] 03/03/2025 Danuta Roseline [facility] [address] [facility] [address] [place] [address] 03/19/2025 Danuta Dukes Assessments Encounter Date Diagnosis (ICD [...] Vanicream, Eucerin or similar lotion as needed 03/19/2025 Vitamin D deficiency (ICD-10 - E55.9) Dr Sullivan following 03/19/2025 Chronic constipation (ICD-10 - K59.09) continue fiber and magnesium supplements 11/08/2024 Wears hearing aid (ICD-10 - Z97.4) has continued FU with audiology 08/17/2024 Depression with anxiety (ICD-10 - F41.8) continue current regimen, well controlled 08/17/2024 JOE (obstructive sleep apnea) (ICD-10 - G47.33) continue use of PAP during sleep 03/19/2025 Medicare annual wellness visit, subsequent (ICD-10 - Z00.00) encouraged again to complete living will, continue specialty FU 03/19/2025 Essential hypertension with goal blood pressure less than 140\/90 (ICD-10 - I10) cardiology following 03/19/2025 Osteoporosis (ICD-10 - M81.0) Dr Sullivan managing 08/17/2024 PAF (paroxysmal atrial fibrillation) (ICD-10 - I48.0) improved s/p ablation, cardiology following 08/17/2024 Hand arthritis (ICD-10 - M19.049) tylenol as needed 03/19/2025 Depression with anxiety (ICD-10 - F41.8) continue current regimen, well controlled 03/19/2025 JOE (obstructive sleep apnea) (ICD-10 - G47.33) continue use of PAP during sleep 03/19/2025 Low vitamin B12 level (ICD-10 - E53.8) will repeat level with next labs 03/19/2025 Obesity (BMI 30-39.9) (ICD-10 - E66.9) stable, weight loss encouraged 03/19/2025 PAF (paroxysmal atrial fibrillation) (ICD-10 - I48.0) continue FU with [facility] cardiology, improved control and symptoms on current regimen 03/19/2025 Hand arthritis (ICD-10 - M19.049) Continue tylenol as needed, xrays today 03/19/2025 Immunization(s) administered (ICD-10 - Z23) 03/19/2025 Visit for screening mammogram (ICD-10 - Z12.31) 03/19/2025 Episodic migraine (ICD-10 - G43.909) For that she not take triptans given her cardiac history, advancing age. [facility] provided 08/17/2024 Other labs due next visit and/or when she has her annual FU with Dr Sullivan this year Plan Of Treatment Pending Test Test Name Order Date MRI : Head, Without Contrast 02/05/2020 Holter Monitor, 24 Hour 06/10/2011 Physical Therapy 02/23/2019 Physical Therapy 06/14/2019 Physical Therapy 09/18/2011 Physical Therapy 12/18/2013 Mammogram : Bilateral 09/28/2016 H-CBC with AUTO DIFF 06/10/2011 H-CBC with AUTO DIFF 08/29/2014 H-BMP 09/10/2010 H-CMP 06/10/2011 H-CMP 04/30/2016 H-CMP 08/29/2014 H-LIPID PANEL 04/30/2016 H-LIPID PANEL 08/29/2014 H-LIPID PANEL 06/10/2011 H-TSH 06/10/2011 H-VIT D, 25-HYDROXY 06/10/2011 H-VIT D, 25-HYDROXY 09/10/2010 H-VIT D, 25-HYDROXY 08/29/2014 M-Complete Blood Count Auto Diff 022 M-Comprehensive Metabolic Panel 04/30/20 22 M-Comprehensive Metabolic Panel 02/15/20 18 M-Lipid Panel 02/14/2018 M-Lipid Panel 04/30/2022 M-Vitamin B12 04/30/2022 M-Vitamin D 25 Hydroxy 12/25/2019 M-Methylmalonic Acid 12/25/2019 Mammogram: Screening 03/19/2025 LIPID PANEL, STANDARD (7600) 03/19/2025 COMPREHENSIVE METABOLIC PANEL (82210) CBC (INCLUDES DIFF/PLT) (6399) VITAMIN B12 (927) 03/19/2025 VITAMIN D,25-OH,TOTAL,IA (71933) 025 Insurance Providers Payer Name Payer Address Payer Phone Subscriber Number Group Number Insured Name Patient Relationship to Insured Coverage Start Date Coverage End Date [employer] MEDICARE [address] [address] [place] [address] [id number] Daniel Esther Self - patient is the insured Medical (General) History Medical History History ICD Code hormone replacement therapy osteoporosis with multiple fractures - [facility] migraine headache HTN Depression with anxiety JOE, diagnosed 05/2016 [address] Davidson, no polyps, diverticulosis - scope in 03/2020 with two tubular adenomas Afib Surgical History Surgery Date(Month/Year) Rt knee surgery 2010 Rotator Cuff Surgery 2012 Heart Cath 2011? Afib-shocked her heart, EGD? 12/2022 Cardiac Ablation 04/20/23 Hospitalization History Reason Date(Month/Year) [facility] - Afib 12/2022 child 01/05- vomitting 1974 vomitting 2012 Rt knee surgery 2010
--- OUTSIDE RECORDS SUMMARY | 2025-04-04 14:21 | XMS_ITS | Clinical Summary ---
Author Organization [facility] Address [address] [place] [address] Care Team Providers Care Rn Document Improvement Specialist Name Role Phone Danuta Dukes APRN Primary [...] ANNUAL PHYSICAL 02/04/2023 HEPATITIS C SCREENING 02/04/2023 INFLUENZA VACCINE 12/15/2024 COVID-19 Vaccine ( season) 2025 Insurance [address] [place] [address] [facility] MEDICARE REPLACE Care Teams Rn Document Improvement Specialist Relationship Specialty Start Date End Date Danuta Dukes APRN [address] [place] [address] PCP - General Family Medicine 02/02/23
--- OUTSIDE RECORDS SUMMARY | 2025-04-04 14:21 | XMS_ITS | Clinical Summary ---
Author Organization [facility] Address [address] [place] [address] Care Team Providers Care Scuba Diver Name Role Phone Danuta Dukes RIO Primary Care Provider +1- [phone] Allergies No known active allergies Medications Magnesium [...] 07/17/2020 Essential (primary) hypertension 09/09/2016 Osteoporosis 11/29/2012 Encounters Date Type Department Care Team Description 03/28/2025 Orders Only [facility] [address] [place] [address] Michelle Ann Age-related osteoporosis without current pathological fracture (Primary Dx); CKD (chronic kidney disease) stage 2, GFR 60-89 ml/min 03/21/2025 Community Orders Community Practice [address] [place] [address] Danuta Dukes APRN Osteoporosis, unspecified osteoporosis type, unspecified pathological fracture presence (Primary Dx) from Last 3 Months Immunizations Immunization Administration Dates Next Due Influenza, Unspecified 02/23/2020 Influenza, high-dose, quadrivalent 04/04/2019, Influenza, injectable, quadrivalent, preservativ e free 04/07/2022,03/25/2021 [email or web address] COVID-19 Biv alent (Shook Cap) 12+ years [...] 07/17/2020 9:08 AM EST Plan of Treatment Upcoming Encounters Date Type Department Care Team (Late st Contact Info) Description 04/09/2025 11:00 AM EST Ovarian Cancer Screening PAV Gynecology [address] [facility], [address]rd [place] [address] 04/27/2025 12:00 PM EST Office Visit [facility] [address] [place] [address] Rowan Mane, 1ST PRESSMAN [address] [facility] [address] [place] [address] Health Maintenance Due Date Last Done Comments [...] 2000 [facility]-Zoster Vaccines (1 of 2) 2000 [facility]-Depression Screening 08/30/2024 08/31/2023 [id number] Vaccine ( season) 2025 01/18/2024, 01/28/2022, 08/19/2021, Additional history exists [facility]-RSV Vaccine: 60+ Years or (1 - 1-dose 75+ series) 2025 [facility]-Obesity Intervention Completed 08/31/2023 [facility]-Pneumococcal Vaccine: 50+ Years Completed 09/20/2023, 02/14/2018 [facility]-Influenza Vaccine Completed 03/19/2025 , 01/18/2024, 04/20/2023, Additional history exists HPV Vaccines Aged Out No longer eligi [...] patient's age to complete this topic Insurance E [place] [id number] [facility] MEDICARE Care Teams Scuba Diver Relationship Specialty Start Date End Date Danuta Dukes APRN [address] [facility] [address] [place] [address] PCP - General 04/22/21
== END 2025-04-04 23:59 | disposition home or self-care (01) ==
LOC: RAD 13:15
PROVIDERS: PCP Nurse Practitioner Family; Visit Provider Nurse Practitioner Family
DX: Z12.31 Encounter for screening mammogram for malignant neoplasm of breast (principal); R92.323 Mammographic fibroglandular density, bilateral breasts
CPT/HCPCS: 77063; 77067

== ENCOUNTER 2025-04-25 11:00 | Outpatient (CLI) | payer MEDICARE, SELFPAY ==
[2025-04-25 11:22] LABS: Microscopic, Urine URINE MICROSCOPIC (MICROSCOPIC)
[2025-04-25 11:39] LABS: Hematocrit 39.5 % (37.0-47.0); Hemoglobin 13.0 g/dL (12.2-16.2); Immature Granulocytes % 0.4 %; Mean Corpuscular HGB Conc 32.9 g/dL (31.8-35.4); Mean Corpuscular Hemoglobin 29.1 pg (27.0-31.2); Mean Corpuscular Volume 88.6 fl (81-99); Nucleated Red Blood Cells % 0 %; Platelet Count 281 K/mm3 (142-424); Red Blood Count 4.46 M/mm3 (4.20-5.40); Red Cell Distribution Width-SD 42.6 fL; White Blood Count 9.0 K/mm3 (4.8-10.8)
[2025-04-25 12:29] LABS: 25-OH Vitamin D, Total 36.5 ng/mL (30-100)
[2025-04-25 18:58] LABS: Bilirubin,Urine Negative (Negative); Color,Urine YELLOW (Yellow); Glucose,Urine (UA) Negative (Negative); Ketones,Urine Negative (Negative); Leukocyte Esterase,Urine 3+ (Negative); PH,Urine 8.0 (5.0-8.5); Protein,Urine Negative (Negative); Specific Gravity, Urine 1.010 (1.005-1.030); Urobilinogen,Urine 0.2 EU/dl (0.2)
[2025-04-25 20:23] LABS: Bacteria,Urine 2+ /lpf
[2025-05-01 16:12] LABS: Renin Activity, Plasma < 0.167 ng/mL/hr (0.167-5.380)
== END 2025-04-25 23:59 | disposition home or self-care (01) ==
LOC: LAB 11:00
PROVIDERS: PCP Nurse Practitioner Family; Visit Provider Nurse Practitioner
DX: N18.2 Chronic kidney disease, stage 2 (mild) (principal); M81.0 Age-related osteoporosis without current pathological fracture
CPT/HCPCS: 36415; 81001; 82306; 82523; 82570; 83937; 83970; 84156; 84244; 85025; 87086